=== PATIENT | male | born 1935 | race Caucasian/White ===

== ENCOUNTER 2016-09-18 19:26 | Emergency (ER) | payer MEDICARE, OTHER ==
[~2016-09-18] VITALS: Ht 177.8 cm; Wt 89.0 kg
[2016-09-18] MEDS ORDERED: REST0.05 OP (19:44)
[2016-09-18] MEDS ORDERED: NEXI40CA PO (19:44)
[2016-09-18] MEDS ORDERED: ASPI81TA85 PO (19:44)
[2016-09-18] MEDS ORDERED: MULT1TAB10 PO (19:44)
[2016-09-18] MEDS ORDERED: LOSA100T8 PO (19:44)
[2016-09-18] MEDS ORDERED: TERA10CA3 PO (19:44)
[2016-09-18] MEDS ORDERED: NS 500 ML IV ONE ×2 (20:00→20:45)
[2016-09-18] MEDS ORDERED: ASPIRIN 325 MG TAB PO ONE (20:00)
[2016-09-18] MEDS ORDERED: PANTOPRAZOLE 40MG TAB (PROTONIX) PO ONE (20:00)
[2016-09-18] MEDS ORDERED: METOCLOPRAMIDE INJ 10MG/2ML VIAL (J2765) IV ONE (20:00)
[2016-09-18 20:04] LABS: BASO % 0.3 % (0.0-1.0); EOS # 0.1 K/mm3 (0.0-0.50); EOS % 2.2 % (0.0-3.0); LARGE UNSTAINED CELL # 0.1 K/mm3 (0.0-0.4); LARGE UNSTAINED CELL % 1.7 % (0.0-4.0); LYMPH # 1.7 K/mm3 (1.5-4.5); LYMPH % 29.5 % (24.0-44.0); MEAN CORPUSCULAR HEMOGLOBIN 29.7 pg (27.0-33.0); MEAN CORPUSCULAR HGB CONC 33.6 g/dl (32.0-36.5); MEAN CORPUSCULAR VOLUME 88.3 fl (80.0-96.0); MONO # 0.3 K/mm3 (0.0-0.8); MONO % 6.2 % (0.0-5.0); NEUTROPHILS # 3.3 K/mm3 (1.8-7.7); NEUTROPHILS % 60.1 % (36.0-66.0); PLATELET COUNT, AUTOMATED 141 k/mm3 (150-450); RED CELL DISTRIBUTION WIDTH 12.9 % (11.5-14.5); WHITE BLOOD COUNT 5.4 K/mm3 (4.0-10.0)
[2016-09-18 20:28] LABS: ALBUMIN 3.6 GM/DL (3.2-5.2); ALBUMIN/GLOBULIN RATIO 1.38 (1.00-1.93); ALKALINE PHOSPHATASE 80 U/L (45-117); ALT/SGPT 21 U/L (12-78); ANION GAP 10 MEQ/L (8-16); AST/SGOT 16 U/L (15-37); BILIRUBIN,DIRECT 0.2 MG/DL (0.0-0.2); BILIRUBIN,TOTAL 0.8 MG/DL (0.2-1.0); BLOOD UREA NITROGEN 29 MG/DL (7-18); CALCIUM LEVEL 8.4 MG/DL (8.8-10.2); CARBON DIOXIDE LEVEL 28 MEQ/L (21-32); CHLORIDE LEVEL 105 MEQ/L (98-107); CREATININE FOR GFR 1.18 MG/DL (0.70-1.30); GLOMERULAR FILTRATION RATE > 60.0 (>35); GLUCOSE, FASTING 113 MG/DL (83-110); POTASSIUM SERUM 3.5 MEQ/L (3.5-5.1); SODIUM LEVEL 143 MEQ/L (136-145); TOTAL PROTEIN 6.2 GM/DL (6.4-8.2)
--- NOTE | 2016-09-18 21:40 | ECGEPIP ---
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
[2016-09-19 02:42] VITALS: BP 149/62
[2016-09-19] MEDS ORDERED: NEXI40CA PO (02:45)
--- NOTE | 2016-09-19 08:47 | REP ---
Chest one-view HISTORY: Chest pain Comparison: 12/22/2014 The lungs are clear. The cardiac silhouette is enlarged. The pulmonary vasculature is normal in appearance. Impression: Cardiomegaly. Signed by Zain Braden MD 09/19/2016 08:39 A
--- NOTE | 2016-09-19 09:53 | ECGEPIP ---
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
== END 2016-09-19 03:01 | disposition home or self-care (01) ==
LOC: M ED 19:26
DX: K21.9 Gastro-esophageal reflux disease without esophagitis (principal); R07.89 Other chest pain; I10 Essential (primary) hypertension; E78.5 Hyperlipidemia, unspecified; Z87.891 Personal history of nicotine dependence; Z88.0 Allergy status to penicillin; Z79.82 Long term (current) use of aspirin; Z79.899 Other long term (current) drug therapy
CPT/HCPCS: 36415; 71010; 80048; 80076; 82550; 82553; 83690; 83880; 84443; 84484; 85025; 85379; 85610; 85730; 93005; 93041; 94760; 96361; 96374; 99285; J2765

== ENCOUNTER → 2019-07-05 | Outpatient (CLI) | payer MEDICARE, OTHER ==
[~2019-07-05] MED LIST: ASPI81TA85 PO; E-Z-GAS II EFFERVESCENT PACKET (SODIUM BICARB./CITRIC ACID/SIMETHICONE) As Ordered ONE; E-Z-HD 98% w/w 340GM SUSP BTL As Ordered ONE; E-Z-PAQUE 96% w/w SUSP 176GM BTL As Ordered ONE; LOSA100T8 PO; MULT1TAB10 PO; NEXI40CA PO; REST0.05 OP; TERA10CA3 PO
--- NOTE | 2019-07-05 16:58 | REP ---
Esophagram The procedure was performed under the direct supervision of Dr. Simpson. The images were reviewed with Dr. Simpson. A single view PA chest x-ray is submitted as a advance scout film. The superior mediastinal structures are midline. The heart size is within normal limits. The lungs are clear. Liquid barium and gas producing granules were given in the erect position as well as liquid barium in the prone oblique positions in order to perform a double contrast esophagram examination. The oral and pharyngeal stages of deglutition are unremarkable. Esophageal transport is prompt and efficient and there is no esophagitis, stricture or mucosal ring. There is a sliding type hiatal hernia. Gastroesophageal reflux is not demonstrated on this examination. Impression: There is a sliding type hiatal hernia. Otherwise, unremarkable double contrast esophagram examination. 0.6 minutes of fluoro time was utilized for this procedure. Electronically Signed by HERIBERTO Siegel 07/05/2019 04:32 P Electronically Signed by Jluis Simpson MD 07/05/2019 04:49 P
== END ==
LOC: M RAD 08:46
PROVIDERS: ATTEND Otolaryngology
DX: K21.9 Gastro-esophageal reflux disease without esophagitis (principal)

== ENCOUNTER 2020-04-02 11:07 | Emergency (ER) | payer MEDICARE, OTHER ==
[~2020-04-02] VITALS: Ht 170.2 cm; Wt 81.8 kg
[~2020-04-02 11:07] MED LIST changes: -ASPI81TA85 PO; +ASPI81TA86 PO; -E-Z-GAS II EFFERVESCENT PACKET (SODIUM BICARB./CITRIC ACID/SIMETHICONE) As Ordered ONE; -E-Z-HD 98% w/w 340GM SUSP BTL As Ordered ONE; -E-Z-PAQUE 96% w/w SUSP 176GM BTL As Ordered ONE
--- OUTSIDE RECORDS SUMMARY | 2020-04-02 11:15 | CCD | Continuity of Care Document ---
Author Author Claude MONAE M.D. Organization Unknown Address [address] [address] Phone [phone] Care Team Providers Care Differential Specialist Name Role Phone Donovan Young MD AUTM Unavailable Problems Active Problems Provider Date Hyperlipidemia Ryan Monae M.D. Onset: 3 Benign essential hypertension Ryan Monae M.D. Onset: 01/12/2013 Gastroesophageal reflux disease Ryan Monae M.D. Onse t: 01/12/2013 Essential hypertension Ryan Monae M.D. Onset: 2014 Left atrial enlargement Ryan Monae M.D. Onset: 12/13 Social History Type Date Description Comments Sex Unknown Tobacco Use Start: Unknown Patient has never smoked Allergies, Adverse Reactions, Alerts Active Allergies Reaction Severity Comments Date Penicillin swelling 01/12/2013 Medications Active Medications SIG Qnty Indications Ordering Provide r Date Esomeprazole Magnesium 40mg Capsul es DR take one capsule by mouth twice a day maximum daily dose = 2 capsules 180caps K21.9 Ryan Monae M.D. 04/26/2019 Prevnar 13 Suspension as directed 1dose Ryan Monae M.D. 12/07/2018 Losartan Potassium 100mg Tablets Take One Tablet By Mouth Every Day 90tabs Ryan Monae M.D . 02/04/2018 Hydrochlorothiazide 25mg Tablets Take One Tablet By Mouth Every Day 90tabs Ryan Monae M.D . 02/04/2018 Terazosin HCL 5mg Capsules Take One Capsule By Mouth AT Bedtime 90caps Ryan Monae M .D. 07/04/2016 Aspirin Ec 81mg Tablets DR 1 by mouth every day Unknown Restasis 0.05% Emulsion instill 1 drop in each eye twice daily 1units Unknown [place] 0.025% Solution daily as directed Unknown Loratadine 10mg Tablets 1 by mouth every day OTC Unknown Carbidopa-Levodopa 25-100mg Tablet s 1/2 by mouth three times a day increasing by 1/2 tablet weekly till taking 5 times qd Donovan Young MD Immunizations CPT Code Status Date Vaccine Lot # 95087 Given 10/31/2019 Influenza Virus Vaccine, Quadrivalent, Slit Virus, Im Use 3Y & Up [id number] 76193 Given 12/07/2018 Influenza Virus Vaccine, Quadrivalent, Slit Virus, Im Use 3Y & Up [id number] 33271 Given 11/25/2017 Influenza Virus Vaccine, Quadrivalent, Slit Virus, Im Use 3Y & Up [id number] 70614 Given 12/11/2016 Influenza Virus Vaccine, Quadrivalent, Slit Virus, Im Use 3Y & Up [id number] 14493 Given 12/20/2015 Influenza Virus Vaccine, Quadrivalent, Slit Virus, Im Use 3Y & Up [id number] 92823 Given 12/20/2014 Influenza Vaccin e (Fluzone) 3Yrs Of Age Or Older Medicare Plans [id number] 10288 Given 01/23/2014 Influenza Vaccin e (Fluzone) 3Yrs Of Age Or Older Medicare Plans [id number] Vital Signs Date Vital Result Comment 01/24/2020 10:37am BP Systolic 136 mmHg BP Diastolic 80 mmHg Body Temperature 98.4 F Heart Rate 86 /min Respiratory Rate 12 /min Height 67 inches 5'7" Weight 183.00 lb [place] Body Weight 148 lb BMI (Body Mass Index) 28.7 kg/m2 O2 % BldC Oximetry 98 % 01/06/2020 11:37am BP Systolic 140 mmHg BP Diastolic 74 mmHg Body Temperature 97.9 F Heart Rate 82 /min Respiratory Rate 16 /min Height 67 inches 5'7" Weight 181.00 lb [place] Body Weight 148 lb BMI (Body Mass Index) 28.3 kg/m2 O2 % BldC Oximetry 98 % Results Test Acquired Date Facility Test Result H/L Range Note Laboratory test finding 01/27/2020 [facility] Occult Blood NEG Neg CBC 01/24/2020 [facility] WBC 3.5 10E3/uL Low 4.1 - 10.9 1 RBC 3.78 10E6/uL Low 4.20 - 6.30 HGB 10.8 g/dL Low 12.0 - 18.0 HCT 33.5 % Low 37.0 - 51.0 MCV 88.6 fL 80.0 - 97.0 MCH 28.6 pg 26.0 - 32.0 MCHC 32.2 g/dL 31.0 - 36.0 PLT 139 10E3/uL Low 140 - 440 RDW-CV 12.9 % 11.5 - 14.5 Lym% 23.9 % 10.0 - 58.5 Neut% 68.5 % 37.0 - 92.0 MXD% 7.6 % 0.1 - 24.0 Lym# 0.8 10E3/uL 0.6 - 4.1 Neut# 2.4 % 2.0 - 7.8 MXD# 0.3 10E3/uL 0.0 - 1.8 MPV 10.3 fL 9.0 - 13.0 Iron And Tibc 01/24/2020 [facility] [place] Iron Bind.Cap.(Tibc) 262 g/dL 250-450 Uibc 187 g/dL 111-343 Iron 75 g/dL 38-169 Iron Saturation 29 % 15-55 CMP 01/18/2020 [facility] Glu 101 mg/dL 70 - 110 2 BUN 22 mg/dL 8 - 23 Creat 1.0 mg/dL 0.7 - 1.2 BUN/Creatinine Ratio 22.1 CALC Na 136 mmol/L 136 - 145 K 4.1 mmol/L 3.5 - 5.1 CL 102.8 mmol/L 98.0 - 107.0 Co2 24.4 mmol/L 22.0 - 29.0 CA 8.7 mg/dL 8.6 - 10.2 TP 5.7 g/dL Low 6.6 - 8.7 Alb 4.0 g/dL 3.5 - 5.2 A/G Ratio 2.3 CALC Globulin 1.7 CALC Alp 71.9 U/L 40 - 129 Alt (SGPT) 14 U/L 0 - 41 Ast (Sgot) 24 U/L 0 - 40 Tbili 0.94 mg/dL 0.0 - 1.2 Osmolality-Calculated 276.2 CALC Anion Gap 13 mmol/L eGFR 79 # Calc 3 eGFR Non-Afr. Pakistani 68 # Calc 4 Lipid Panel 01/18/2020 [facility] Chol 117 mg/dL 0 - 200 Trig 52 mg/dL 35 - 200 HDL 53 mg/dL 35 - 55 LDL_C 54 Calc Low 75 - 129 Cho/HDL Ratio 2.2 CALC CBC 01/18/2020 [facility] WBC 4.7 10E3/uL 4.1 - 10.9 RBC 3.69 10E6/uL Low 4.20 - 6.30 HGB 10.8 g/dL Low 12.0 - 18.0 HCT 33.0 % Low 37.0 - 51.0 MCV 89.4 fL 80.0 - 97.0 MCH 29.3 pg 26.0 - 32.0 MCHC 32.7 g/dL 31.0 - 36.0 PLT 135 10E3/uL Low 140 - 440 RDW-CV 12.9 % 11.5 - 14.5 Lym% 25.6 % 10.0 - 58.5 Neut% 66.1 % 37.0 - 92.0 MXD% 8.3 % 0.1 - 24.0 Lym# 1.2 10E3/uL 0.6 - 4.1 Neut# 3.1 % 2.0 - 7.8 MXD# 0.4 10E3/uL 0.0 - 1.8 MPV 10.8 fL 9.0 - 13.0 1 NORMAL RANGES Age WBC RBC HGB HCT MCV PLT Adult M 4.1-10.9 4.20-6.30 12.0-18.0 37.0-51.0 80-97 140-440 Adult F 4.1-10.9 4.04-5.48 12.0-18.0 37.0-51.0 0 -1 Yr 5.0-20.0 3.9-5.9 15-18 MV: 44 MV: 91 MV: 277 2-9 Yr. 6.0-17.0 3.8-5.4 11-13 MV: 37 MV: 78 MV: 300 10 Yrs. 5.0-13.0 3.8-5.4 12-15 MV: 39 MV: 80 MV: 250 NOTE: * FOR ADULT BLACK MALES AND FEMALES, NORMAL WBC IS 2.9-7.7 K/ML * FOR ADULT BLACK MALES AND FEMALES, NORMAL RBC,HGB, AND HCT IS 5% LESS SOURCE FOR DATA: [employer] 1800 OPERATION MANUAL( AUTOMATED BLOOD COUNTS AND DIFF.) APPENDIX B-3 2 NORMAL RANGES Age WBC RBC HGB HCT MCV PLT Adult M 4.1-10.9 4.20-6.30 12.0-18.0 37.0-51.0 440 Adult F 4.1-10.9 4.04-5.48 12.0-18.0 37.0-51.0 0 -1 Yr 5.0-20.0 3.9-5.9 15-18 MV: 44 MV: 91 MV: 277 2-9 Yr. 6.0-17.0 3.8-5.4 11-13 MV: 37 MV: 78 MV: 300 10 Yrs. 5.0-13.0 3.8-5.4 12-15 MV: 39 MV: 80 MV: 250 NOTE: * FOR ADULT BLACK MALES AND FEMALES, NORMAL WBC IS 2.9-7.7 K/ML * FOR ADULT BLACK MALES AND FEMALES, NORMAL RBC,HGB, AND HCT IS 5% LESS SOURCE FOR DATA: [employer] 1800 OPERATION MANUAL( AUTOMATED BLOOD COUNTS AND DIFF.) APPENDIX B-3 CHRONIC KIDNEY DISEASE STAGING PER NKF: MALE GFR INTERPRETATION: 20-49 YRS: >60 mL/min Normal 50-59 YRS: >56 mL/min Normal 60-69 YRS: >49 mL/min Normal 70-79 YRS: >42 mL/min Normal 80 and above >35 mL/min Normal FEMALE GRF INTERPRETATION: 20-39 YRS: >60 mL/min Normal 40-49 YRS: >58 mL/min Normal 50-59 YRS: >51 mL/min Normal 60-69 YRS: >45 mL/min Normal 70-79 YRS: >39 mL/min Normal 80 and above >32 mL/min NormalCLASSIFICATION CHOLESTEROL FOR ADULTS CHILDREN/ADOLESCENTS* DESIRABLE: <200 MG/DL <170 MG/DL BORDER-LINE HIGH RISK: 200-239 MG/DL 170-199 MG/DL HIGH RISK: >240 MG/DL >200 MG/DL CLASS. FOR PRIMARY LDL CHOL PREVENTION: LDL CHOL-CHILD/ADOLESCENTS* DESIRABLE: <130 MG/DL <110 MG/DL BORDERLINE-HIGH RISK: 130-159 MG/DL 110-129 MG/DL HIGH RISK: >160 MG/DL >130 MG/DL *CHILDREN AND ADOLESCENTS REPRESENTS INDIVIDUALA AGED 2-19 YEARS EXCLUSIVE. 3 CKD-EPI 4 CKD-EPI Procedures Description No Information Available Medical Devices Description No Information Available Encounters Type Date Location Provider Dx Diagnosis Office Visit 01/24/2020 10:20a [facility] Ryan Monae M. D. R25.1 Tremor, unspecified I10 Essential (primary) hyperten collin K21.9 Gastro-esophageal reflux dis ease without esophagitis D64.9 Anemia, unspecified Office Visit 01/06/2020 11:30a [facility] Helen Romo PA G25.0 Essential tremor Office Visit 10/31/2019 2:30p [facility] Ryan Monae M. D. G25.0 Essential tremor Z23 Encounter for immunization Assessments Date Code Description Provider 01/27/2020 D64.9 Anemia, unspecified Talha Monae M.D. 01/24/2020 R25.1 Tremor, unspecified Talha Monae M.D. 01/24/2020 I10 Essential (primary) hypertension Ryan Monae M.D. 01/24/2020 K21.9 Gastro-esophageal reflux disease without esophagitis Ryan Monae M.D. 01/24/2020 D64.9 Anemia, unspecified Talha Monae M.D. 01/18/2020 E78.5 [facility], [facility] 01/06/2020 G25.0 Essential tremor Sa karina Romo PA 10/31/2019 G25.0 Essential tremor Ryan Monae M.D. 10/31/2019 Z23 Encounter for immunization Ryan Hardy M.D. Plan of Treatment Future Appointment(s):* 07/18/2020 8:45 am - Laboratory [facility] Schedule at [facility] * 07/25/2020 11:00 am - Ryan Monae M.D. at [facility] Functional Status Description No Information Available Mental Status Description No Information Available Referrals Refer to Dr Reason for Referral Status Appt Date Vielka Zimmer tremor- eval and rx Sent 11/14/2019 [facility] [address] [id number] [phone]
--- OUTSIDE RECORDS SUMMARY | 2020-04-02 11:15 | CCD | Continuity of Care Document ---
Author Author Roddy/Claude GALLOWAY Organization Unknown Address [address] [place] [id number] Phone [phone] Care Team Providers Care Barrel Rifler Hook Name Role Phone Ryan Monae M.D. AUTM [phone] Problems Active Problems Provider Date Tremor Donovan Young M.D. Onset: 11/14/2019 Left atrial enlargement Onset: 9 Essential hypertension Onset: 01/31/2015 Hyperlipidemia Onset: 01/12/2013 Benign essential hypertension Onset: Gastroesophageal reflux disease Onset: 03/14/2012 Social History Type Date Description Comments Sex Unknown Tobacco Use Start: Unknown End: Unknown Patient is a former smoker Allergies, Adverse Reactions, Alerts Active Allergies Reaction Severity Comments Date Penicillin V 11/14/2019 Vitamin D 11/14/2019 Medications Active Medications SIG Qnty Indications Ordering Provide r Date Carbidopa-Levodopa 25-100mg Tablet s Take 1 tab by mouth tid. Introduce 1/2 tab every 7 days gradually raising the dose over the next couple weeks. 5 hours apart. 90tabs Donovan cordon M.D. 01/11/2020 Diazepam 5mg Tablets take 1 tab 30-60 minutes prior to mri. [facility] [id number] 1tabs Donovan vela M.D. 11/18/2019 Esomeprazole Magnesium 40mg Capsul es DR take one capsule by mouth twice a day maximum daily dose = 2 capsules 180caps K21.9 Ryan Monae M.D. 04/26/2019 Prevnar 13 Suspension as directed 1units Ryan Monae M.D. 12/07/2018 Losartan Potassium 100mg Tablets Take One Tablet By Mouth Every Day 90tabs Ryan Monae M.D. 02/04/2018 Hydrochlorothiazide 25mg Tablets Take One Tablet By Mouth Every Day 90taRyan Camacho M.D. 02/04/2018 Terazosin HCL 5mg Capsules Take One Capsule By Mouth AT Bedtime 90caps Ryan Monae M.D . 07/04/2016 Aspirin Adult Low Dose 81mg Tablet s DR 1 by mouth every day 90taedwige Young M.D. 000 Aspirin Ec 81mg Tablets DR 1 by mouth every day Unknown Restasis 0.05% Emulsion instill 1 drop in each eye twice daily 1units Unknown Claritin 10mg Tablets 1 by mouth every day Unknown [place] 0.025% Solution daily as directed Unknown Immunizations Description No Information Available Vital Signs Date Vital Result Comment 11/14/2019 9:53am Respiratory Rate 12 /min Height 70 inches 5'10" Weight 183.00 lb BMI (Body Mass Index) 26.3 kg/m2 [place] Body Weight 166 lb 10/31/2019 3:38pm BP Systolic 138 mmHg BP Diastolic 74 mmHg Heart Rate 74 /min Body Temperature 99.1 F Respiratory Rate 14 /min Height 67 inches Weight 183.00 lb BMI (Body Mass Index) 28.7 kg/m2 O2 % BldC Oximetry 97 % Results Description No Information Available Procedures Date Code Description Status 01/25/2020 05709 Sympathetic Skin Responses Compl eted 01/25/2020 18460 Sympathetic Skin Responses Compl eted 01/25/2020 62989 Test Autonomic Nervous System, C ardiovagal Innervation Completed 01/25/2020 22456 Test Autonomic Nervous System, C ardiovagal Innervation Completed 12/26/2019 00266 EEG Recording Awake & Asleep Com pleted 12/26/2019 06596 EEG Recording Awake & Asleep Com pleted 11/22/2019 02023 MRI Brain W/O Contrast Completed 11/22/2019 07222 MRI Brain W/O Contrast Completed Medical Devices Description No Information Available Encounters Type Date Location Provider Dx Diagnosis Office Visit 11/14/2019 9:30a Main office - [place] Donovan vela M.D. R25.1 Tremor, unspecified R25.8 Other abnormal involuntary m ovements Assessments Date Code Description Provider 01/25/2020 G20 Parkinson's disease Donovan vela M.D. 01/25/2020 G20 Parkinson's disease Ans/VS 12/26/2019 R41.82 Altered mental status, unspecifi ed Tasha Juanpablo Cheung 12/26/2019 R41.82 Altered mental status, unspecifi ed EEG 11/22/2019 I63.9 Cerebral infarction, unspecified Sheba Skye, M.DAlfonzo 11/22/2019 I63.9 Cerebral infarction, unspecified MRI 11/22/2019 R25.8 Other abnormal involuntary movem ents Sheba Cheung M.D. 11/22/2019 R25.8 Other abnormal involuntary movem ents MRI 11/22/2019 R25.1 Tremor, unspecified Sheba Cheung M.D. 11/22/2019 R25.1 Tremor, unspecified MRI 11/14/2019 R25.1 Tremor, unspecified Donovan vela M.D. 11/14/2019 R25.8 Other abnormal involuntary movem ents Donovan Young M.D. Plan of Treatment Future Appointment(s):* 02/23/2020 2:00 pm - Donovan Young M.D. at Main office - [place] Functional Status Description No Information Available Mental Status Description No Information Available Referrals Description No Information Available
--- OUTSIDE RECORDS SUMMARY | 2020-04-02 11:15 | CCD | Continuity of Care Document ---
Author Author Claude MONAE M.D. Organization Unknown Address [address] [address] Phone [phone] Care Team Providers Care Livestock Nutritionist Name Role Phone Donovan Young MD AUTM Unavailable Problems Active Problems Provider Date Hyperlipidemia Ryan Monae M.D. Onset: 3 Benign essential hypertension Ryan Monae M.D. Onset: 01/12/2013 Gastroesophageal reflux disease Ryan Monae M.D. Onse t: 01/12/2013 Essential hypertension Rayn Monae M.D. Onset: 2014 Left atrial enlargement [...] CPT Code Status Date Vaccine Lot # [id number] Given 10/31/2019 Influenza Virus Vaccine, Quadrivalent, Slit Virus, Im Use 3Y & Up [id number] 11422 Given 12/07/2018 Influenza Virus Vaccine, Quadrivalent, Slit Virus, Im Use 3Y & Up [id number] 25777 Given 11/25/2017 Influenza Virus Vaccine, Quadrivalent, Slit Virus, Im Use 3Y & Up [id number] 95251 Given 12/11/2016 Influenza Virus Vaccine, Quadrivalent, Slit Virus, Im Use 3Y & Up [id number] 28300 Given 12/20/2015 Influenza Virus Vaccine, Quadrivalent, Slit Virus, Im Use 3Y & Up [id number] 05013 Given 12/20/2014 Influenza Vaccin e (Fluzone) 3Yrs Of Age Or Older Medicare Plans [id number] 98031 Given 01/23/2014 Influenza Vaccin e (Fluzone) 3Yrs Of Age Or Older Medicare Plans [id number] Vital Signs Date Vital Result Comment 01/24/2020 10:37am BP Systolic 136 mmHg BP Diastolic 80 mmHg Body Temperature 98.4 F Heart Rate 86 /min Respiratory Rate 12 /min Height 67 inches 5'7" Weight 183.00 lb [place] Body Weight 148 lb BMI (Body Mass Index) 28.7 kg/m2 O2 % BldC Oximetry 98 % 01/06/2020 11:37am BP Systolic 140 mmHg BP Diastolic 74 mmHg Body Temperature 97.9 F Heart Rate 82 /min Respiratory Rate 16 /min Height 67 inches 5'7" Weight 181.00 lb [place] Body Weight 148 lb BMI (Body Mass Index) 28.3 kg/m2 O2 % BldC Oximetry 98 % Results Test Acquired Date Facility Test Result H/L Range Note CBC 01/24/2020 [facility] WBC 3.5 10E3/uL Low [...] eGFR 79 # Calc 3 eGFR Non-Afr. [place] 68 # Calc 4 Lipid Panel 01/18/2020 [...] 140-440 Adult F 4.1-10.9 4.04-5.48 12.0-18.0 37.0-51.0 140-440 0 -1 Yr 5.0-20.0 3.9-5.9 15-18 MV: [...] HCT IS 5% LESS SOURCE FOR DATA: [employer] 1800 OPERATION MANUAL( AUTOMATED BLOOD COUNTS AND DIFF.) APPENDIX B-3 2 NORMAL RANGES Age WBC RBC HGB HCT MCV PLT Adult M 4.1-10.9 4.20-6.30 12.0-18.0 37.0-51.0 140-440 Adult F 4.1-10.9 4.04-5.48 12.0-18.0 37.0-51.0 140-440 0 -1 Yr 5.0-20.0 3.9-5.9 15-18 MV: [...] HCT IS 5% LESS SOURCE FOR DATA: [employer] 1800 OPERATION MANUAL( AUTOMATED BLOOD COUNTS AND [...] Provider Dx Diagnosis Office Visit 01/24/2020 10:20a [place] [facility] Ryan Monae M. D. R25.1 Tremor, unspecified I10 Essential (primary) hyperten collin K21.9 Gastro-esophageal reflux dis ease without esophagitis D64.9 Anemia, unspecified Office Visit 01/06/2020 11:30a [place] [facility] Helen Romo PA G25.0 Essential tremor Office Visit 10/31/2019 2:30p [place] [facility] Ryan Monae M. D. G25.0 Essential tremor Z23 Encounter for immunization Assessments Date Code Description Provider 01/24/2020 R25.1 Tremor, unspecified Talha Monae M.D. 01/24/2020 I10 Essential (primary) hypertension Ryan Monae M.D. 01/24/2020 K21.9 Gastro-esophageal reflux disease without esophagitis Ryan Monae M.D. 01/24/2020 D64.9 Anemia, unspecified Talha Monae M.D. 01/18/2020 E78.5 [facility]lipidemia, [facility] 01/06/2020 G25.0 Essential tremor Sa karina Romo PA 10/31/2019 G25.0 Essential tremor Ryan Monae M.D. 10/31/2019 Z23 Encounter for immunization Ryan Hardy M.D. Plan of Treatment Future Appointment(s):* 07/18/2020 8:45 am - Laboratory [place] Schedule at [facility] * 07/25/2020 11:00 am - Ryan Monae M.D. at [facility] Functional Status Description No Information Available Mental Status Description No Information Available Referrals Refer to Dr Reason for Referral Status Appt Date Vielka Zimmer tremor- eval and rx Sent 11/14/2019 [facility] [address] [address] [phone]
--- OUTSIDE RECORDS SUMMARY | 2020-04-02 11:15 | CCD | Continuity of Care Document ---
Author Author Claude MONET M.D. Organization Unknown Address [address] [place] [address] Phone [phone] Care Team Providers Care [place] Name Role Phone Ryan Monae M.D. AUTM [phone] Problems Active Problems Provider Date Tremor Donovan Monet M.D. Onset: 11/14/2019 Left atrial enlargement Onset: [...] 1 tab 30-60 minutes prior to mri. [employer] [id number] 1tabs Donovan vela M.D. 11/18/2019 Esomeprazole Magnesium [...] Every Day 90tabs Ryan Monae M.D. 02/04/2018 Terazosin HCL 5mg Capsules Take One Capsule By Mouth AT Bedtime 90caps Ryan Monae M.D . 07/04/2016 Aspirin Adult Low Dose 81mg Tablet s DR 1 by mouth every day 90tabs Donovan Monet M.D. 000 Aspirin Ec 81mg Tablets DR 1 by mouth every day Unknown Restasis 0.05% Emulsion instill 1 drop in each eye twice daily 1units Unknown Claritin 10mg Tablets 1 by mouth every day Unknown [place] 0.025% Solution daily as directed Unknown Immunizations Description No Information Available Vital Signs Date Vital Result Comment 02/23/2020 2:37pm Respiratory Rate 12 /min Height 70 inches 5'10" Weight 183.00 lb BMI (Body Mass Index) 26.3 kg/m2 [place] Body Weight 166 lb 11/14/2019 9:53am Respiratory Rate 12 /min Height 70 inches 5'10" Weight 183.00 lb BMI (Body Mass Index) 26.3 kg/m2 [place] Body Weight 166 lb Results Description No Information Available Procedures Date Code Description Status 01/25/2020 72034 Sympathetic Skin Responses Compl eted 01/25/2020 93250 Sympathetic Skin Responses Compl eted 01/25/2020 96054 Test Autonomic Nervous System, C ardiovagal Innervation Completed 01/25/2020 93512 Test Autonomic Nervous System, C ardiovagal Innervation Completed 12/26/2019 70814 EEG Recording Awake & Asleep Com pleted 12/26/2019 10291 EEG Recording Awake & Asleep Com pleted 11/22/2019 82917 MRI Brain W/O Contrast Completed 11/22/2019 79094 MRI Brain W/O Contrast Completed Medical Devices Description No Information Available Encounters Type Date Location Provider Dx Diagnosis Office Visit 11/14/2019 9:30a Main office - [place] Donovan vela M.D. R25.1 Tremor, unspecified R25.8 Other abnormal involuntary m ovements Assessments Date Code Description Provider 01/25/2020 G20 Parkinson's disease Dnoovan vela M.D. 01/25/2020 G20 Parkinson's disease Ans/VS 12/26/2019 R41.82 Altered mental status, unspecifi ed Tasha Cheung M.D. 12/26/2019 R41.82 Altered mental status, unspecifi ed EEG 11/22/2019 I63.9 Cerebral infarction, unspecified Shebamarcin Cehung M.D. 11/22/2019 I63.9 Cerebral infarction, unspecified MRI 11/22/2019 R25.8 Other abnormal involuntary movem ents Sheba Cheung M.D. 11/22/2019 R25.8 Other abnormal involuntary movem ents MRI 11/22/2019 R25.1 Tremor, unspecified Sheba Cheung M.D. 11/22/2019 R25.1 Tremor, unspecified MRI 11/14/2019 R25.1 Tremor, unspecified Donovan vela M.D. 11/14/2019 R25.8 Other abnormal involuntary movem ents Donovan Monet M.D. Plan of Treatment No Information Available Functional Status Description No Information Available Mental Status Description No Information Available Referrals Description No Information Available
--- OUTSIDE RECORDS SUMMARY | 2020-04-02 11:15 | CCD | Continuity of Care Document ---
Author Author Claude MONET M.D. Organization Unknown Address [address] [place] [address] Phone [phone] Care Team Providers Care Greaser Operator Name Role Phone Ryan Monae M.D. AUTM [phone] Problems Active Problems Provider Date Tremor Donovan [...] 1 tab 30-60 minutes prior to mri. ENROLLMENT COUNSELOR [id number] 1tabs Donovan vela M.D. 11/18/2019 Esomeprazole Magnesium [...] lb BMI (Body Mass Index) 26.3 kg/m2 [place] Body Weight 166 lb 11/14/2019 9:53am Respiratory Rate 12 /min Height 70 inches 5'10" Weight 183.00 lb BMI (Body Mass Index) 26.3 kg/m2 [place] Body Weight 166 lb Results Description No Information Available Procedures Date Code Description Status 01/25/2020 95622 Sympathetic Skin Responses Compl eted 01/25/2020 58202 Sympathetic Skin Responses Compl eted 01/25/2020 63314 Test Autonomic Nervous System, C ardiovagal Innervation Completed 01/25/2020 71879 Test Autonomic Nervous System, C ardiovagal Innervation Completed 12/26/2019 10765 EEG Recording Awake & Asleep Com pleted 12/26/2019 86345 EEG Recording Awake & Asleep Com pleted 11/22/2019 51877 MRI Brain W/O Contrast Completed 11/22/2019 73066 MRI Brain W/O Contrast Completed Medical Devices Description No Information Available Encounters Type Date Location Provider Dx Diagnosis Office Visit 02/23/2020 2:00p Main office - Mike vela M.D. G20 Parkinson's disease Office Visit 11/14/2019 9:30a Main office - Mike vela M.D. R25.1 Tremor, unspecified R25.8 Other abnormal involuntary m ovements Assessments Date Code Description Provider 02/23/2020 G20 Parkinson's disease Donovan vela M.D. 01/25/2020 G20 Parkinson's disease Donovan vela M.D. 01/25/2020 G20 Parkinson's disease Ans/VS 12/26/2019 R41.82 Altered mental status, unspecifi ed Tasha Juanpablo Cheung 12/26/2019 R41.82 Altered mental status, unspecifi ed EEG 11/22/2019 I63.9 Cerebral infarction, unspecified Sheba Skye, AdrianaDAlfonzo 11/22/2019 I63.9 Cerebral infarction, unspecified MRI 11/22/2019 R25.8 Other abnormal involuntary movem ents Sheba Cheung M.D. 11/22/2019 R25.8 Other abnormal involuntary movem ents MRI 11/22/2019 R25.1 Tremor, unspecified Sheba Juanpablo Cheung 11/22/2019 R25.1 Tremor, unspecified MRI 11/14/2019 R25.1 Tremor, unspecified Donovan vela M.D. 11/14/2019 R25.8 Other abnormal involuntary movem ents Donovan Monet M.D. Plan of Treatment No Information Available Functional Status Description No Information Available Mental Status Description No Information Available Referrals Description No Information Available
--- OUTSIDE RECORDS SUMMARY | 2020-04-02 11:15 | CCD | Continuity of Care Document ---
Author Author Roddy/Claude GALLOWAY Organization Unknown Address [address] [place] [address] Phone [phone] Care Team Providers Care Skimmer Scoop Operator Name Role Phone Ryan Monae M.D. AUTM [phone] Problems Active Problems Provider Date Tremor Donovan [...] 1 tab 30-60 minutes prior to mri. [facility] [id number] 1tabs Donovan vela M.D. 11/18/2019 Esomeprazole Magnesium [...] Take One Capsule By Mouth AT Bedtime 90beckas Ryan Monae M.D . 07/04/2016 Aspirin Adult [...] lb BMI (Body Mass Index) 26.3 kg/m2 [place] Body Weight 166 lb 10/31/2019 3:38pm BP Systolic 138 mmHg BP Diastolic 74 mmHg Heart Rate 74 /min Body Temperature 99.1 F Respiratory Rate 14 /min Height 67 inches Weight 183.00 lb BMI (Body Mass Index) 28.7 kg/m2 O2 % BldC Oximetry 97 % Results Description No Information Available Procedures Date Code Description Status 12/26/2019 35912 EEG Recording Awake & Asleep Com pleted 12/26/2019 94345 EEG Recording Awake & Asleep Com pleted 11/22/2019 11264 MRI Brain W/O Contrast Completed 11/22/2019 16715 MRI Brain W/O Contrast Completed Medical Devices Description No Information Available Encounters Type Date Location Provider Dx Diagnosis Office Visit 11/14/2019 9:30a Main office - [place] Donovan vela M.D. R25.1 Tremor, unspecified R25.8 Other abnormal involuntary m ovements Assessments Date Code Description Provider 12/26/2019 R41.82 Altered mental status, unspecifi ed Tasha Cheung M.D. 12/26/2019 R41.82 Altered mental status, unspecifi ed EEG 11/22/2019 I63.9 Cerebral infarction, unspecified Sheba Cheung M.D. 11/22/2019 I63.9 Cerebral infarction, unspecified MRI [...] Donovan Young M.D. at Main office - [place] Functional Status Description No Information Available Mental Status Description No Information Available Referrals Description No Information Available
--- OUTSIDE RECORDS SUMMARY | 2020-04-02 11:15 | CCD | Continuity of Care Document ---
Author Author Claude MEDEL DPM Organization Unknown Address [address] [place] [address], [address] [place] [address] Phone [phone] Care Team Providers Care Telecommunications Support Name Role Phone O'iesha SILVANO, Martha GUZMANM [phone] Ryan Monae M.D. [phone] Problems Active Problems Provider Date Pain in limb Dimas Medel DPM Onset: 08/16/2019 Onychomycosis Dimas Medel DPM Onset: 08/16/2019 Ingrowing nail Dimas Medel DPM Onset: 08/16/2019 Social History Type Date Description Comments Sex Unknown ETOH Use Occasionally consumes alcohol Tobacco Use Start: Unknown Patient has never smoked Allergies, Adverse Reactions, Alerts Active Allergies Reaction Severity Comments Date Penicillins 08/15/2019 Medications Active Medications SIG Qnty Indications Ordering Provide r Date Aspirin Unknown Nexium Unknown Restasis Unknown Losartan Potassium Unknown Immunizations Description No Information Available Vital Signs Date Vital Result Comment 08/15/2019 1:25pm Height 68 inches 5'8" Weight 190.00 lb BP Systolic 120 mmHg BP Diastolic 68 mmHg Heart Rate 108 /min BMI (Body Mass Index) 28.9 kg/m2 Results Description No Information Available Procedures Date Code Description Status 03/05/2020 66011 Debridement 6-10 Nails Electric Completed 01/02/2020 22890 Debridement 6-10 Nails Electric Completed 10/25/2019 89212 Debridement 6-10 Nails Electric Completed Medical Devices Description No Information Available Encounters Description No Information Available Assessments Date Code Description Provider 03/05/2020 B35.1 Tinea unguium Dimas Medel DPM 03/05/2020 L60.0 Ingrowing nail Dimas Medel, DPM 03/05/2020 M79.676 Pain in unspecified toe(s) Rivera Medel, DPM 01/02/2020 B35.1 Tinea unguium Dimas Medel, DPM 01/02/2020 L60.0 Ingrowing nail Dmias Medel, DPM 01/02/2020 M79.676 Pain in unspecified toe(s) Rivera Medel, DPM 10/25/2019 B35.1 Tinea unguium Dimas Medel, DPM 10/25/2019 L60.0 Ingrowing nail Dimas Medel, DPM 10/25/2019 M79.676 Pain in unspecified toe(s) Rivera Medel DPM Plan of Treatment Future Appointment(s):* 05/14/2020 1:30 pm - Dimas Medel DPM at [facility] Functional Status Description No Information Available Mental Status Description No Information Available Referrals Description No Information Available
--- OUTSIDE RECORDS SUMMARY | 2020-04-02 11:15 | CCD | Continuity of Care Document ---
Author Author Claude MONAE M.D. Organization Unknown Address [address] [address] Phone [phone] Care Team Providers Care Devops Solutions Architect Name Role Phone Donovan Young MD AUTM [...] CPT Code Status Date Vaccine Lot # [id number] Given 10/31/2019 Influenza Virus Vaccine, Quadrivalent, Slit Virus, Im Use 3Y & Up [id number] 42512 Given 12/07/2018 Influenza Virus Vaccine, Quadrivalent, Slit Virus, Im Use 3Y & Up [id number] 22038 Given 11/25/2017 Influenza Virus Vaccine, Quadrivalent, Slit Virus, Im Use 3Y & Up [id number] 26766 Given 12/11/2016 Influenza Virus Vaccine, Quadrivalent, Slit Virus, Im Use 3Y & Up [id number] 08536 Given 12/20/2015 Influenza Virus Vaccine, Quadrivalent, Slit Virus, Im Use 3Y & Up [id number] 29137 Given 12/20/2014 Influenza Vaccin e (Fluzone) 3Yrs Of Age Or Older Medicare Plans [id number] 32197 Given 01/23/2014 Influenza Vaccin e (Fluzone) 3Yrs Of Age Or Older Medicare Plans [id number] Vital Signs Date Vital Result Comment 01/24/2020 10:37am BP Systolic 136 mmHg BP Diastolic 80 mmHg Body Temperature 98.4 F Heart Rate 86 /min Respiratory Rate 12 /min Height 67 inches 5'7" Weight 183.00 lb [place] Body Weight 148 lb BMI (Body Mass Index) 28.7 kg/m2 O2 % BldC Oximetry 98 % 01/06/2020 11:37am BP Systolic 140 mmHg BP Diastolic 74 mmHg Body Temperature 97.9 F Heart Rate 82 /min Respiratory Rate 16 /min Height 67 inches 5'7" Weight 181.00 lb [place] Body Weight 148 lb BMI (Body Mass [...] 1.8 MPV 10.3 fL 9.0 - 13.0 CMP 01/18/2020 [facility]Inhouse Glu 101 mg/dL 70 [...] eGFR 79 # Calc 3 eGFR Non-Afr. [place]ese 68 # Calc 4 Lipid Panel 01/18/2020 [...] 140-440 Adult F 4.1-10.9 4.04-5.48 12.0-18.0 37.0-51.0 80-97 140-440 0 -1 Yr 5.0-20.0 3.9-5.9 15-18 [...] HCT IS 5% LESS SOURCE FOR DATA: [employer] 1800 OPERATION MANUAL( AUTOMATED BLOOD COUNTS AND DIFF.) APPENDIX B-3 2 NORMAL RANGES Age WBC RBC HGB HCT MCV PLT Adult M 4.1-10.9 4.20-6.30 12.0-18.0 37.0-51.0 80-97 140-440 Adult F 4.1-10.9 4.04-5.48 12.0-18.0 37.0-51.0 80-97 140-440 0 -1 Yr 5.0-20.0 3.9-5.9 15-18 [...] HCT IS 5% LESS SOURCE FOR DATA: [employer] 1800 OPERATION MANUAL( AUTOMATED BLOOD COUNTS AND [...] Provider Dx Diagnosis Office Visit 01/24/2020 10:20a [place] [facility] Ryan Monae M. D. R25.1 Tremor, unspecified I10 Essential (primary) hyperten collin K21.9 Gastro-esophageal reflux dis ease without esophagitis D64.9 Anemia, unspecified Office Visit 01/06/2020 11:30a [place] [facility] Helen Romo PA G25.0 Essential tremor Office Visit 10/31/2019 2:30p [place] [facility] Ryan Monae M. D. G25.0 Essential tremor Z23 Encounter for immunization Assessments Date Code Description Provider 01/24/2020 R25.1 Tremor, unspecified Talha Monae M.D. 01/24/2020 I10 Essential (primary) hypertension Ryan Monae M.D. 01/24/2020 K21.9 Gastro-esophageal reflux disease without esophagitis Ryan Monae M.D. 01/24/2020 D64.9 Anemia, unspecified Talha Monae M.D. 01/18/2020 E78.5 Hyperlipidemia, unspecified [facility] Ryan nolan M.D. 01/06/2020 G25.0 Essential tremor Sa karina Romo PA 10/31/2019 G25.0 Essential tremor Ryan Monae M.D. 10/31/2019 Z23 Encounter for immunization Ryan Hardy M.D. Plan of Treatment Future Appointment(s):* 07/18/2020 8:45 am - Laboratory [place] Schedule at [facility] * 07/25/2020 11:00 am - Ryan Monae M.D. at [facility] Functional Status Description No Information Available Mental Status Description No Information Available Referrals Refer to Dr Reason for Referral Status Appt Date Vielka Zimmer tremor- eval and rx Sent 11/14/2019 [facility] [address] [address] [phone]
--- OUTSIDE RECORDS SUMMARY | 2020-04-02 11:15 | CCD | Continuity of Care Document ---
Author Author Claude MONAE M.D. Organization Unknown Address [address] [address] Phone [phone] Care Team Providers Care Block Splitter Operator Name Role Phone Donovan Young MD AUTM [...] CPT Code Status Date Vaccine Lot # [id number] Given 10/31/2019 Influenza Virus Vaccine, Quadrivalent, Slit Virus, Im Use 3Y & Up [id number] 21070 Given 12/07/2018 Influenza Virus Vaccine, Quadrivalent, Slit Virus, Im Use 3Y & Up [id number] 82678 Given 11/25/2017 Influenza Virus Vaccine, Quadrivalent, Slit Virus, Im Use 3Y & Up [id number] 05565 Given 12/11/2016 Influenza Virus Vaccine, Quadrivalent, Slit Virus, Im Use 3Y & Up [id number] 87758 Given 12/20/2015 Influenza Virus Vaccine, Quadrivalent, Slit Virus, Im Use 3Y & Up [id number] 43005 Given 12/20/2014 Influenza Vaccin e (Fluzone) 3Yrs Of Age Or Older Medicare Plans [id number] 49320 Given 01/23/2014 Influenza Vaccin e (Fluzone) 3Yrs Of Age Or Older Medicare Plans [id number] Vital Signs Date Vital Result Comment 01/24/2020 10:37am BP Systolic 136 mmHg BP Diastolic 80 mmHg Body Temperature 98.4 F Heart Rate 86 /min Respiratory Rate 12 /min Height 67 inches 5'7" Weight 183.00 lb [place] Body Weight 148 lb BMI (Body Mass Index) 28.7 kg/m2 O2 % BldC Oximetry 98 % 01/06/2020 11:37am BP Systolic 140 mmHg BP Diastolic 74 mmHg Body Temperature 97.9 F Heart Rate 82 /min Respiratory Rate 16 /min Height 67 inches 5'7" Weight 181.00 lb [place] Body Weight 148 lb BMI (Body Mass [...] eGFR 79 # Calc 3 eGFR Non-Afr. Syrian 68 # Calc 4 Lipid Panel 01/18/2020 [...] HCT IS 5% LESS SOURCE FOR DATA: [employer] 1800 OPERATION MANUAL( AUTOMATED BLOOD COUNTS AND [...] HCT IS 5% LESS SOURCE FOR DATA: [employer] 1800 OPERATION MANUAL( AUTOMATED BLOOD COUNTS AND [...] Provider Dx Diagnosis Office Visit 01/24/2020 10:20a [place] [facility] Ryan Monae M. D. R25.1 Tremor, unspecified I10 Essential (primary) hyperten collin K21.9 Gastro-esophageal reflux dis ease without esophagitis D64.9 Anemia, unspecified Office Visit 01/06/2020 11:30a [place] [facility] Helen Romo PA G25.0 Essential tremor Office Visit 10/31/2019 2:30p [place] [facility] Ryan Monae M. D. G25.0 Essential tremor Z23 Encounter for immunization Assessments Date Code Description Provider 01/24/2020 R25.1 Tremor, unspecified Talha Monae M.D. 01/24/2020 I10 Essential (primary) hypertension Ryan oMnae M.D. 01/24/2020 K21.9 Gastro-esophageal reflux disease without esophagitis Ryan Monae M.D. 01/24/2020 D64.9 Anemia, unspecified Talha Monae M.D. 01/18/2020 E78.5 [facility], [facility] 01/06/2020 G25.0 Essential tremor Sa karina Romo PA 10/31/2019 G25.0 Essential tremor Ryan Monae M.D. 10/31/2019 Z23 Encounter for immunization Ryan Hardy M.D. Plan of Treatment Future Appointment(s):* 07/18/2020 8:45 am - Laboratory [place] Schedule at [facility] * 07/25/2020 11:00 am - Ryan Monae M.D. at [facility] Functional Status Description No Information Available Mental Status Description No Information Available Referrals Refer to Dr Reason for Referral Status Appt Date Vielka Zimmer tremor- eval and rx Sent 11/14/2019 [facility] [address] [address] [phone]
--- OUTSIDE RECORDS SUMMARY | 2020-04-02 11:16 | CCD | Continuity of Care Document ---
Author Author Claude MONAE M.D. Organization Unknown Address [address] [address] Phone [phone] Problems Active Problems Provider Date Hyperlipidemia Ryan [...] 0.025% Solution daily as directed Unknown Immunizations CPT Code Status Date Vaccine Lot # [id number] Given 10/31/2019 Influenza Virus Vaccine, Quadrivalent, Slit Virus, Im Use 3Y & Up [id number] 90426 Given 12/07/2018 Influenza Virus Vaccine, Quadrivalent, Slit Virus, Im Use 3Y & Up [id number] 14718 Given 11/25/2017 Influenza Virus Vaccine, Quadrivalent, Slit Virus, Im Use 3Y & Up [id number] 37052 Given 12/11/2016 Influenza Virus Vaccine, Quadrivalent, Slit Virus, Im Use 3Y & Up [id number] 40782 Given 12/20/2015 Influenza Virus Vaccine, Quadrivalent, Slit Virus, Im Use 3Y & Up [id number] 64514 Given 12/20/2014 Influenza Vaccin e (Fluzone) 3Yrs Of Age Or Older Medicare Plans [id number] 62759 Given 01/23/2014 Influenza Vaccin e (Fluzone) 3Yrs Of Age Or Older Medicare Plans [id number] Vital Signs Date Vital Result Comment 01/06/2020 11:37am BP Systolic 140 mmHg BP Diastolic 74 mmHg Body Temperature 97.9 F Heart Rate 82 /min Respiratory Rate 16 /min Height 67 inches 5'7" Weight 181.00 lb [place] Body Weight 148 lb BMI (Body Mass Index) 28.3 kg/m2 O2 % BldC Oximetry 98 % 10/31/2019 3:38pm BP Systolic 138 mmHg BP Diastolic 74 mmHg Body Temperature 99.1 F Heart Rate 74 /min Respiratory Rate 14 /min Height 67 inches 5'7" Weight 183.00 lb [place] Body Weight 148 lb BMI (Body Mass Index) 28.7 kg/m2 O2 % BldC Oximetry 97 % Results Test Acquired Date Facility Test Result H/L Range Note CMP 01/18/2020 [facility] Glu 101 mg/dL 70 - 110 1 BUN 22 mg/dL 8 - 23 Creat [...] Gap 13 mmol/L eGFR 79 # Calc 2 eGFR Non-Afr. [place]i 68 # Calc 3 Lipid Panel 01/18/2020 [facility]house Chol 117 mg/dL [...] HCT IS 5% LESS SOURCE FOR DATA: [employer] 1800 OPERATION MANUAL( AUTOMATED BLOOD COUNTS AND [...] ADOLESCENTS REPRESENTS INDIVIDUALA AGED 2-19 YEARS EXCLUSIVE. 2 CKD-EPI 3 CKD-EPI Procedures Description No Information Available Medical Devices Description No Information Available Encounters Type Date Location Provider Dx Diagnosis Office Visit 01/24/2020 10:20a [place] [facility] Ryan Monae M. D. R25.1 Tremor, unspecified I10 Essential (primary) hyperten collin K21.9 Gastro-esophageal reflux dis ease without esophagitis D64.9 Anemia, unspecified Office Visit 01/06/2020 11:30a [place] [facility] Helen Romo PA G25.0 Essential tremor Office Visit 10/31/2019 2:30p [place] [facility] Ryan Monae M. D. G25.0 Essential tremor Z23 Encounter for immunization Assessments Date Code Description Provider 01/24/2020 R25.1 Tremor, unspecified Tlaha Monae M.D. 01/24/2020 I10 Essential (primary) hypertension Ryan Monae M.D. 01/24/2020 K21.9 Gastro-esophageal reflux disease without esophagitis Ryan Monae M.D. 01/24/2020 D64.9 Anemia, unspecified Talha Monae M.D. 01/18/2020 E78.5 Hyperlipidemia, unspecified [facility] Ryan nolan M.D. 01/06/2020 G25.0 Essential tremor Sa karina Romo PA 10/31/2019 G25.0 Essential tremor Ryan Monae M.D. 10/31/2019 Z23 Encounter for immunization Ryan Hardy M.D. Plan of Treatment No Information Available Functional Status Description No Information Available Mental Status Description No Information Available Referrals Refer to Reason for Referral Status Appt Date Vielka Zimmer tremor- eval and rx Sent 11/14/2019 [facility] [address] [address] [phone]
--- OUTSIDE RECORDS SUMMARY | 2020-04-02 11:16 | CCD | Continuity of Care Document ---
Author Author Laboratory Claude Stallings Organization Unknown Address [address] [facility] [address] [place] [address] Phone [phone] Problems Active Problems Provider Date Hyperlipidemia Ryan [...] CPT Code Status Date Vaccine Lot # [id number] Given 10/31/2019 Influenza Virus Vaccine, Quadrivalent, Slit Virus, Im Use 3Y & Up [id number] 59876 Given 12/07/2018 Influenza Virus Vaccine, Quadrivalent, Slit Virus, Im Use 3Y & Up [id number] 29112 Given 11/25/2017 Influenza Virus Vaccine, Quadrivalent, Slit Virus, Im Use 3Y & Up [id number] 74868 Given 12/11/2016 Influenza Virus Vaccine, Quadrivalent, Slit Virus, Im Use 3Y & Up [id number] 78648 Given 12/20/2015 Influenza Virus Vaccine, Quadrivalent, Slit Virus, Im Use 3Y & Up [id number] 35414 Given 12/20/2014 Influenza Vaccin e (Fluzone) 3Yrs Of Age Or Older Medicare Plans [id number] 37655 Given 01/23/2014 Influenza Vaccin e (Fluzone) 3Yrs Of Age Or Older Medicare Plans [id number] Vital Signs Date Vital Result Comment 01/06/2020 11:37am BP Systolic 140 mmHg BP Diastolic 74 mmHg Body Temperature 97.9 F Heart Rate 82 /min Respiratory Rate 16 /min Height 67 inches 5'7" Weight 181.00 lb [place] Body Weight 148 lb BMI (Body Mass Index) 28.3 kg/m2 O2 % BldC Oximetry 98 % 10/31/2019 3:38pm BP Systolic 138 mmHg BP Diastolic 74 mmHg Body Temperature 99.1 F Heart Rate 74 /min Respiratory Rate 14 /min Height 67 inches 5'7" Weight 183.00 lb [place] Body Weight 148 lb BMI (Body Mass [...] eGFR 79 # Calc 2 eGFR Non-Afr. [place]isian 68 # Calc 3 Lipid Panel 01/18/2020 [...] HCT IS 5% LESS SOURCE FOR DATA: [employer] 1800 OPERATION MANUAL( AUTOMATED BLOOD COUNTS AND [...] Date Location Provider Dx Diagnosis Office Visit 01/06/2020 11:30a [place] [facility] Helen Romo PA G25.0 Essential tremor Office Visit 10/31/2019 2:30p [place] [facility] Ryan Monae M. D. G25.0 Essential tremor Z23 Encounter for immunization Assessments Date Code Description Provider 01/06/2020 G25.0 Essential tremor Sa karina Romo PA 10/31/2019 G25.0 Essential tremor Ryan Monae M.D. 10/31/2019 Z23 Encounter for immunization Joseph Ryan del real M.D. Plan of Treatment Future Appointment(s):* 01/24/2020 10:20 am - Ryan Monae M.D. at [facility] Functional Status Description No Information Available Mental Status Description No Information Available Referrals Refer to Dr Reason for Referral Status Appt Date Vielka Zimmer tremor- eval and rx Sent 11/14/2019 [facility] [address] [address] [phone]
--- OUTSIDE RECORDS SUMMARY | 2020-04-02 11:16 | CCD | Continuity of Care Document ---
Author Author Claude ROMO MT Organization Unknown Address 3 [facility] [address] [place] [address] Phone [phone] Problems Active Problems Provider Date Hyperlipidemia Ryan [...] CPT Code Status Date Vaccine Lot # [id number] Given 10/31/2019 Influenza Virus Vaccine, Quadrivalent, Slit Virus, Im Use 3Y & Up [id number] 93796 Given 12/07/2018 Influenza Virus Vaccine, Quadrivalent, Slit Virus, Im Use 3Y & Up [id number] 03007 Given 11/25/2017 Influenza Virus Vaccine, Quadrivalent, Slit Virus, Im Use 3Y & Up [id number] 44926 Given 12/11/2016 Influenza Virus Vaccine, Quadrivalent, Slit Virus, Im Use 3Y & Up [id number] 03954 Given 12/20/2015 Influenza Virus Vaccine, Quadrivalent, Slit Virus, Im Use 3Y & Up [id number] 93464 Given 12/20/2014 Influenza Vaccin e (Fluzone) 3Yrs Of Age Or Older Medicare Plans [id number] 30119 Given 01/23/2014 Influenza Vaccin e (Fluzone) 3Yrs Of Age Or Older Medicare Plans [id number] Vital Signs Date Vital Result Comment 01/06/2020 11:37am BP Systolic 140 mmHg BP Diastolic 74 mmHg Body Temperature 97.9 F Heart Rate 82 /min Respiratory Rate 16 /min Height 67 inches 5'7" Weight 181.00 lb [place] Body Weight 148 lb BMI (Body Mass Index) 28.3 kg/m2 O2 % BldC Oximetry 98 % 10/31/2019 3:38pm BP Systolic 138 mmHg BP Diastolic 74 mmHg Body Temperature 99.1 F Heart Rate 74 /min Respiratory Rate 14 /min Height 67 inches 5'7" Weight 183.00 lb [place] Body Weight 148 lb BMI (Body Mass Index) 28.7 kg/m2 O2 % BldC Oximetry 97 % Results Description No Information Available Procedures Description No Information Available Medical Devices Description No Information Available Encounters Type Date Location Provider Dx Diagnosis Office Visit 01/06/2020 11:30a [place] [facility] Helen Romo PA G25.0 Essential tremor Office Visit 10/31/2019 2:30p [place] [facility] Ryan Monae M. D. G25.0 Essential tremor Z23 Encounter for immunization Office Visit 07/20/2019 3:20p [place] [facility] Ryan Monae M. D. G25.0 Essential tremor Assessments Date Code Description Provider 01/06/2020 G25.0 Essential tremor Sa karina Romo PA 10/31/2019 G25.0 Essential tremor Ryan Monae M.D. 10/31/2019 Z23 Encounter for immunization Ryan Hardy M.D. 07/20/2019 G25.0 Essential tremor Ryan Monae M.D. Plan of Treatment Future Appointment(s):* 01/24/2020 10:20 am - Ryan Monae M.D. at [place] [facility] * 01/17/2020 9:15 am - Laboratory [place] Schedule at [facility] Functional Status Description No Information Available Mental Status Description No Information Available Referrals Refer to Dr Reason for Referral Status Appt Date Vielka Zimmer tremor- eval and rx Sent 11/14/2019 [facility] [address] [address] [phone]
--- OUTSIDE RECORDS SUMMARY | 2020-04-02 11:16 | CCD | Continuity of Care Document ---
Author Author Claude MAIER [place] Organization Unknown Address 3 [facility] [address] [place] [address] Phone [phone] Problems Active Problems Provider Date Hyperlipidemia Ryan [...] CPT Code Status Date Vaccine Lot # 27510 Given 10/31/2019 Influenza Virus Vaccine, Quadrivalent, Slit Virus, Im Use 3Y & Up [id number] 75371 Given 12/07/2018 Influenza Virus Vaccine, Quadrivalent, Slit Virus, Im Use 3Y & Up [id number] 56502 Given 11/25/2017 Influenza Virus Vaccine, Quadrivalent, Slit Virus, Im Use 3Y & Up [id number] 47018 Given 12/11/2016 Influenza Virus Vaccine, Quadrivalent, Slit Virus, Im Use 3Y & Up [id number] 62381 Given 12/20/2015 Influenza Virus Vaccine, Quadrivalent, Slit Virus, Im Use 3Y & Up [id number] 48012 Given 12/20/2014 Influenza Vaccin e (Fluzone) 3Yrs Of Age Or Older Medicare Plans [id number] 41611 Given 01/23/2014 Influenza Vaccin e (Fluzone) 3Yrs Of Age Or Older Medicare Plans [id number] Vital Signs Date Vital Result Comment 01/06/2020 11:37am BP Systolic 140 mmHg BP Diastolic 74 mmHg Body Temperature 97.9 F Heart Rate 82 /min Respiratory Rate 16 /min Height 67 inches 5'7" Weight 181.00 lb [place] Body Weight 148 lb BMI (Body Mass Index) 28.3 kg/m2 O2 % BldC Oximetry 98 % 10/31/2019 3:38pm BP Systolic 138 mmHg BP Diastolic 74 mmHg Body Temperature 99.1 F Heart Rate 74 /min Respiratory Rate 14 /min Height 67 inches 5'7" Weight 183.00 lb [place] Body Weight 148 lb BMI (Body Mass Index) 28.7 kg/m2 O2 % BldC Oximetry 97 % Results Description No Information Available Procedures Description No Information Available Medical Devices Description No Information Available Encounters Type Date Location Provider Dx Diagnosis Office Visit 10/31/2019 2:30p [place] [facility] Ryan Monae M. D. G25.0 Essential tremor Z23 Encounter for immunization Office Visit 07/20/2019 3:20p [place] [facility] Ryan Monae M. D. G25.0 Essential tremor Assessments Date Code Description Provider 10/31/2019 G25.0 Essential tremor Ryan Monae M.D. 10/31/2019 Z23 Encounter for immunization Joseph Ryan del real M.D. 07/20/2019 G25.0 Essential tremor Ryan Monae M.D. Plan of Treatment Future Appointment(s):* 01/24/2020 10:20 am - Ryan Monae M.D. at [place] [facility] * 01/17/2020 9:15 am - [facility] [place] Schedule at [facility] Functional Status Description No Information Available Mental Status Description No Information Available Referrals Refer to Dr Reason for Referral Status Appt Date Vielka Zimmer tremor- eval and rx Sent 11/14/2019 [facility] [address] [address] [phone]
--- OUTSIDE RECORDS SUMMARY | 2020-04-02 11:16 | CCD | Continuity of Care Document ---
Author Author Claude MEDEL DPRose Mary Organization Unknown Address [address] [place] [address], [address] [place] [address] Phone [phone] Care Team Providers Care Olericulture Professor Name Role Phone O'iesha SILVANO, Martha DUPONT [phone] Ryan Monae M.D. [phone] Problems Active Problems Provider Date Pain in [...] Information Available Procedures Date Code Description Status 01/02/2020 17355 Debridement 6-10 Nails Electric Completed 10/25/2019 73282 Debridement 6-10 Nails Electric Completed 08/15/2019 99122 Debridement 6-10 Nails Electric Completed Medical Devices Description No Information Available Encounters Type Date Location Provider Dx Diagnosis Office Visit 08/15/2019 1:00p [place] [facility] Dimas Medel DPM M79.676 Pain in unspecified toe(s) B35.1 Tinea unguium L60.0 Ingrowing nail Assessments Date Code Description Provider 01/02/2020 B35.1 Tinea unguium Dimas Medel, DPM 01/02/2020 L60.0 Ingrowing nail Dimas Medel, DPM 01/02/2020 M79.676 Pain in unspecified toe(s) Rivera Medel, DPM 10/25/2019 B35.1 Tinea unguium Dimas Medel, DPM 10/25/2019 L60.0 Ingrowing nail Dimas Medel, DPM 10/25/2019 M79.676 Pain in unspecified toe(s) Rivera Medel, DPM 08/15/2019 M79.676 Pain in unspecified toe(s) Rivera Medel, FREDDYM 08/15/2019 B35.1 Tinea unguium Dimas Medel, DPM 08/15/2019 L60.0 Ingrowing nail Dimas Medel DPM Plan of Treatment Future Appointment(s):* 03/05/2020 1:30 pm - Dimas Medel DPM at [facility] [place] Functional Status Description No Information Available Mental Status Description No Information Available Referrals Description No Information Available
--- OUTSIDE RECORDS SUMMARY | 2020-04-02 11:16 | CCD | Continuity of Care Document ---
Author Author Laboratory Claude Stallings Organization Unknown Address 3 [facility] [address] [place] [address] Phone [phone] Problems Active Problems Provider Date Hyperlipidemia Ryan [...] CPT Code Status Date Vaccine Lot # [id number] Given 10/31/2019 Influenza Virus Vaccine, Quadrivalent, Slit Virus, Im Use 3Y & Up [id number] 66429 Given 12/07/2018 Influenza Virus Vaccine, Quadrivalent, Slit Virus, Im Use 3Y & Up [id number] 88362 Given 11/25/2017 Influenza Virus Vaccine, Quadrivalent, Slit Virus, Im Use 3Y & Up [id number] 47744 Given 12/11/2016 Influenza Virus Vaccine, Quadrivalent, Slit Virus, Im Use 3Y & Up [id number] 11484 Given 12/20/2015 Influenza Virus Vaccine, Quadrivalent, Slit Virus, Im Use 3Y & Up [id number] 50382 Given 12/20/2014 Influenza Vaccin e (Fluzone) 3Yrs Of Age Or Older Medicare Plans [id number] 93691 Given 01/23/2014 Influenza Vaccin e (Fluzone) 3Yrs Of Age Or Older Medicare Plans [id number] Vital Signs Date Vital Result Comment 01/06/2020 11:37am BP Systolic 140 mmHg BP Diastolic 74 mmHg Body Temperature 97.9 F Heart Rate 82 /min Respiratory Rate 16 /min Height 67 inches 5'7" Weight 181.00 lb [place] Body Weight 148 lb BMI (Body Mass Index) 28.3 kg/m2 O2 % BldC Oximetry 98 % 10/31/2019 3:38pm BP Systolic 138 mmHg BP Diastolic 74 mmHg Body Temperature 99.1 F Heart Rate 74 /min Respiratory Rate 14 /min Height 67 inches 5'7" Weight 183.00 lb [place] Body Weight 148 lb BMI (Body Mass [...] eGFR 79 # Calc 2 eGFR Non-Afr. Turkish 68 # Calc 3 Lipid Panel 01/18/2020 [...] HCT IS 5% LESS SOURCE FOR DATA: [employer] 1800 OPERATION MANUAL( AUTOMATED BLOOD COUNTS AND [...] Provider Dx Diagnosis Office Visit 01/06/2020 11:30a [place] [facility] Helen Romo PA G25.0 Essential tremor Office Visit 10/31/2019 2:30p [place] [facility] Ryan Monae M. D. G25.0 Essential tremor Z23 Encounter for immunization Assessments Date Code Description Provider 01/18/2020 E78.5 Hyperlipidemia, unspecified [facility] Ryan nolan M.D. 01/06/2020 G25.0 Essential tremor Sa karina Romo PA 10/31/2019 G25.0 Essential tremor Ryan Monae M.D. 10/31/2019 Z23 Encounter for immunization Ryan Hardy M.D. Plan of Treatment Future Appointment(s):* 01/24/2020 10:20 am - Ryan Monae M.D. at [facility] Functional Status Description No Information Available Mental Status Description No Information Available Referrals Refer to Dr Reason for Referral Status Appt Date Vielka Zimmer tremor- eval and rx Sent 11/14/2019 [facility] [address] [address] [phone]
--- OUTSIDE RECORDS SUMMARY | 2020-04-02 11:16 | CCD | Continuity of Care Document ---
Author Author Laboratory Claude Stallings Organization Unknown Address 3 [facility] [address] [place] [address] Phone [phone] Problems Active Problems Provider Date Hyperlipidemia Ryan [...] CPT Code Status Date Vaccine Lot # 16736 Given 10/31/2019 Influenza Virus Vaccine, Quadrivalent, Slit Virus, Im Use 3Y & Up [id number] 25095 Given 12/07/2018 Influenza Virus Vaccine, Quadrivalent, Slit Virus, Im Use 3Y & Up [id number] 03775 Given 11/25/2017 Influenza Virus Vaccine, Quadrivalent, Slit Virus, Im Use 3Y & Up [id number] 19725 Given 12/11/2016 Influenza Virus Vaccine, Quadrivalent, Slit Virus, Im Use 3Y & Up [id number] 84466 Given 12/20/2015 Influenza Virus Vaccine, Quadrivalent, Slit Virus, Im Use 3Y & Up [id number] 18628 Given 12/20/2014 Influenza Vaccin e (Fluzone) 3Yrs Of Age Or Older Medicare Plans [id number] 11084 Given 01/23/2014 Influenza Vaccin e (Fluzone) 3Yrs Of Age Or Older Medicare Plans [id number] Vital Signs Date Vital Result Comment 01/06/2020 11:37am BP Systolic 140 mmHg BP Diastolic 74 mmHg Body Temperature 97.9 F Heart Rate 82 /min Respiratory Rate 16 /min Height 67 inches 5'7" Weight 181.00 lb [place] Body Weight 148 lb BMI (Body Mass Index) 28.3 kg/m2 O2 % BldC Oximetry 98 % 10/31/2019 3:38pm BP Systolic 138 mmHg BP Diastolic 74 mmHg Body Temperature 99.1 F Heart Rate 74 /min Respiratory Rate 14 /min Height 67 inches 5'7" Weight 183.00 lb [place] Body Weight 148 lb BMI (Body Mass Index) 28.7 kg/m2 O2 % BldC Oximetry 97 % Results Description No Information Available Procedures Description No Information Available Medical Devices Description No Information Available Encounters Type Date Location Provider Dx Diagnosis Office Visit 01/06/2020 11:30a [place] [facility] Helen Romo PA G25.0 Essential tremor Office Visit 10/31/2019 2:30p [place] [facility] Ryan Monae M. D. G25.0 Essential tremor Z23 Encounter for immunization Office Visit 07/20/2019 3:20p [place] [facility] Ryan Monae M. D. G25.0 Essential tremor Assessments Date Code Description Provider 01/06/2020 G25.0 Essential tremor Sa karina Romo PA 10/31/2019 G25.0 Essential tremor Ryan Monae M.D. 10/31/2019 Z23 Encounter for immunization Ryan Hardy M.D. 07/20/2019 G25.0 Essential tremor Ryan Monae M.D. Plan of Treatment Future Appointment(s):* 01/24/2020 10:20 am - Ryan Monae M.D. at [facility] Functional Status Description No Information Available Mental Status Description No Information Available Referrals Refer to Dr Reason for Referral Status Appt Date Vielka Zimmer tremor- eval and rx Sent 11/14/2019 [facility] [address] [address] [phone]
--- OUTSIDE RECORDS SUMMARY | 2020-04-02 11:17 | CCD ---
Author Author [facility] Organization [facility] Address Unknown Phone Unavailable Care Team Providers Care Maintenance Clerk Name Role Phone Roosevelt Chino, Zulma Marmolejo MD, FACS Unavailable Unavailable Albert Chino, Zulma Marmolejo MD, FACS Unavailable Unavailable Albert Chino, Zulma Marmolejo MD, FACS Unavailable Unavailable Albert Chino, Zulma Marmolejo MD, FACS Unavailable Unavailable Albert Chino, Zulma Marmolejo MD, FACS Unavailable Unavailable Albert Chino, Zulma Marmolejo MD, FACS Unavailable Unavailable Albert Chino, Zulma Marmolejo MD, FACS Unavailable Unavailable Albert Chino, Zulma Marmolejo MD, FACS Unavailable Unavailable Albert Chino, Zulma Marmolejo MD, FACS Unavailable Unavailable Albert Chino, Zulma Marmolejo MD, FACS Unavailable Unavailable Albert Chino, Zulma Marmolejo MD, FACS Unavailable Unavailable Albert Chino, Zulma Marmolejo MD, FACS Unavailable Unavailable Albert Chino, Zulma Marmolejo MD, FACS Unavailable Unavailable Albert Chino, Zulma Marmolejo MD, FACS Unavailable Unavailable Albert Chino, Zulma Marmolejo MD, FACS Unavailable Unavailable Albert Chino, Zulma Marmolejo MD, FACS Unavailable Unavailable Albert Chino, Zulma Marmolejo MD, FACS Unavailable Unavailable Albert Chino, Zulma Marmolejo MD, FACS Unavailable Unavailable Albert Chino, Zulma Marmolejo MD, FACS Unavailable Unavailable Albert Chino, Zulma Marmolejo MD, FACS Unavailable Unavailable Albert Chino, Zulma Marmolejo MD, FACS Unavailable Unavailable Albert Chino, Zulma Marmolejo MD, FACS Unavailable Unavailable Albert Chino, Zulma Marmolejo MD, FACS Unavailable Unavailable Albert Chino, Zulma Marmolejo MD, FACS Unavailable Unavailable Albert Chino, Zulma Marmolejo MD, FACS Unavailable Unavailable Albert Chino, Zulma Marmolejo MD, FACS Unavailable Unavailable Albert Chino, Zulma Marmolejo MD, FACS Unavailable Unavailable Albert Chino, Zulma Marmolejo MD, FACS Unavailable Unavailable Albert Chino, Zulma Marmolejo MD, FACS Unavailable Unavailable Albert Chino, Zulma Marmolejo MD, FACS Unavailable Unavailable Albert Chino, Zulma Marmolejo MD, FACS Unavailable Unavailable Albert Chino, Zulma Marmolejo MD, FACS Unavailable Unavailable Roosevelt Chino, Zulma Marmolejo MD, FACS Unavailable Unavailable Roosevelt Chino, Zulma Marmolejo MD, FACS Unavailable Unavailable Barraclough, Grisel PA Unavailable Unavailable Barraclough, Grisel PA Unavailable Unavailable Barraclough, Grisel PA Unavailable Unavailable Barraclough, Grisel PA Unavailable Unavailable Barraclough, Grisel PA Unavailable Unavailable Barraclough, Grisel PA Unavailable Unavailable MAJAK, R SARABJIT DPM Unavailable Unavailable MAJAK, R SARABJIT DPM Unavailable Unavailable MAJAK, R SARABJIT DPM Unavailable Unavailable MAJAK, R SARABJIT DPM Unavailable Unavailable MAJAK, R SARABJIT DPM Unavailable Unavailable MAJAK, R SARABJIT DPM Unavailable Unavailable MAJAK, R SARABJIT DPM Unavailable Unavailable MAJAK, R SARABJIT DPM Unavailable Unavailable MAJAK, R SARABJIT DPM Unavailable Unavailable MAJAK, R SARABJIT DPM Unavailable Unavailable MAJAK, R SARABJIT DPM Unavailable Unavailable MAJAK, R SARABJIT DPM Unavailable Unavailable MAJAK, R SARABJIT DPM Unavailable Unavailable MAJAK, R SARABJIT DPM Unavailable Unavailable MAJAK, R SARABJIT DPM Unavailable Unavailable MAJAK, R SARABJIT DPM Unavailable Unavailable MAJAK, R SARABJIT DPM Unavailable Unavailable MAJAK, R SARABJIT DPM Unavailable Unavailable MAJAK, R SARABJIT DPM Unavailable Unavailable MAJAK, R SARABJIT DPM Unavailable Unavailable MAJAK, R SARABJIT DPM Unavailable Unavailable MAJAK, R SARABJIT DPM Unavailable Unavailable MAJAK, R SARABJIT DPM Unavailable Unavailable MAJAK, R SARABJIT DPM Unavailable Unavailable MAJAK, R SARABJIT DPM Unavailable Unavailable MAJAK, R SARABJIT DPM Unavailable Unavailable MAJAK, R SARABJIT DPM Unavailable Unavailable MAJAK, R SARABJIT DPM Unavailable Unavailable MAJAK, R SARABJIT DPM Unavailable Unavailable MAJAK, R SARABJIT DPM Unavailable Unavailable Pedro PEGUERO MD Unavailable Unavailable Pedro PEGUERO MD Unavailable Unavailable Pedro PEGUERO MD Unavailable Unavailable Pedro PEGUERO MD Unavailable Unavailable Pedro PEGUERO MD Unavailable Unavailable Pedro PEGUERO MD Unavailable Unavailable Pedro PEGUERO MD Unavailable Unavailable Pedro PEGUERO MD Unavailable Unavailable Pedro PEGUERO MD Unavailable Unavailable Pedro PEGUERO MD Unavailable Unavailable Pedro PEGUERO MD Unavailable Unavailable Pedro PEGUERO MD Unavailable Unavailable Pedro PEGUERO MD Unavailable Unavailable Pedro PEGUERO MD Unavailable Unavailable Pedro PEGUERO MD Unavailable Unavailable Pedro PEGUERO MD Unavailable Unavailable Pedro PEGUERO MD Unavailable Unavailable Pedro PEGUERO MD Unavailable Unavailable SUDHIR H DARRYL EDEN Unavailable Unavailable SUDHIR H DARRYL EDEN Unavailable Unavailable SUDHIR H DARRYL EDEN Unavailable Unavailable SUDHIR H DARRYL DEEN Unavailable Unavailable SUDHIR H DARRYL EDEN Unavailable Unavailable SUDHIR H DARRYL EDEN Unavailable Unavailable SUDHIR H DARRYL EDEN Unavailable Unavailable SUDHIR H DARRYL EDEN Unavailable Unavailable SUDHIR H DARRYL EDEN Unavailable Unavailable SUDHIR H DARRYL EDEN Unavailable Unavailable SUDHIR, H DARRYL EDEN Unavailable Unavailable SUDHIR H DARRYL EDEN Unavailable Unavailable SUDHIR, H DARRYL MD Unavailable Unavailable SUDHIR H DARRYL MD Unavailable Unavailable SUDHIR H DARRYL MD Unavailable Unavailable SUDHIR H DARRYL MD Unavailable Unavailable SUDHIR H DARRYL EDEN Unavailable Unavailable SUDHIR H DARRYL EDEN Unavailable Unavailable SUDHIR, H DARRYL MD Unavailable Unavailable SUDHIR, H DARRYL MD Unavailable Unavailable SUDHIR H DARRYL EDEN Unavailable Unavailable SUDHIR H DARRYL EDEN Unavailable Unavailable SUDHIR H DARRYL EDEN Unavailable Unavailable Pedro PEGUERO MD Unavailable Unavailable SUDHIR H DARRYL EDEN Unavailable Unavailable Pedro PEGUERO MD Unavailable Unavailable Pedro PEGUERO MD Unavailable Unavailable SUDHIR H DARRYL EDEN Unavailable Unavailable Pedro PEGUERO MD Unavailable Unavailable Pedro PEGUERO MD Unavailable Unavailable Pedro PEGUERO MD Unavailable Unavailable Pedro PEGUERO MD Unavailable Unavailable Pedro PEGUERO MD Unavailable Unavailable Pedro PEGUERO MD Unavailable Unavailable Pedro PEGUERO MD Unavailable Unavailable Pedro PEGUERO MD Unavailable Unavailable Pedro PEGUERO MD Unavailable Unavailable Pedro PEGUERO MD Unavailable Unavailable Pedro PEGUERO MD Unavailable Unavailable Pedro PEGUERO MD Unavailable Unavailable Pedro PEGUERO MD Unavailable Unavailable Pedro PEGUERO MD Unavailable Unavailable Pedro PEGUERO MD Unavailable Unavailable Pedro PEGUERO MD Unavailable Unavailable Pedro PEGUERO MD Unavailable Unavailable Pedro PEGUERO MD Unavailable Unavailable Pedro PEGUERO MD Unavailable Unavailable Pedro PEGUERO MD Unavailable Unavailable Pdero PEGUERO MD Unavailable Unavailable Pedro PEGUERO MD Unavailable Unavailable Pedro PEGUERO MD Unavailable Unavailable Pedro PEGUERO MD Unavailable Unavailable Pedro PEGUERO MD Unavailable Unavailable Pedro PEGUERO MD Unavailable Unavailable SUDHIR H DARRYL EDEN Unavailable Unavailable Pedro PEGUERO MD Unavailable Unavailable Pedro PEGUERO MD Unavailable Unavailable Pedro PEGUERO MD Unavailable Unavailable Ben Brownlee MD Unavailable Unavailable Ben Brownlee MD Unavailable Unavailable Ben Brownlee MD Unavailable Unavailable Ben Brownlee MD Unavailable Unavailable Ben Brownlee MD Unavailable Unavailable Ben Brownlee MD Unavailable Unavailable Ben Brownlee MD Unavailable Unavailable Ben Brownlee MD Unavailable Unavailable Ben Brownlee MD Unavailable Unavailable Ben Brownlee MD Unavailable Unavailable Ben Brownlee MD Unavailable Unavailable Ben Brownlee MD Unavailable Unavailable Ben Brownlee MD Unavailable Unavailable Ben Brownlee MD Unavailable Unavailable Ben Brownlee MD Unavailable Unavailable Ben Brownlee MD Unavailable Unavailable Ben Brownlee MD Unavailable Unavailable Ben Brownlee MD Unavailable Unavailable Ben Brownlee MD Unavailable Unavailable Ben Brownlee MD Unavailable Unavailable Ben Brownlee MD Unavailable Unavailable Ben Brownlee MD Unavailable Unavailable Ben Brownlee MD Unavailable Unavailable Ben Brownlee MD Unavailable Unavailable Ben Brownlee MD Unavailable Unavailable Ben Brownlee MD Unavailable Unavailable Ben Brownlee MD Unavailable Unavailable Ben Brownlee MD Unavailable Unavailable Eduardo Young MD Unavailable Unavailable Eduardo Young MD Unavailable Unavailable Eduardo Young MD Unavailable Unavailable Eduardo Young MD Unavailable Unavailable Eduardo Young MD Unavailable Unavailable Eduardo Young MD Unavailable Unavailable Eduardo Young MD Unavailable Unavailable Eduardo Young MD Unavailable Unavailable Eduardo Young MD Unavailable Unavailable Eduardo Young MD Unavailable Unavailable Eduardo Young MD Unavailable Unavailable Eduardo Young MD Unavailable Unavailable Eduardo Young MD Unavailable Unavailable Eduardo Young MD Unavailable Unavailable Eduardo Young MD Unavailable Unavailable Eduardo Young MD Unavailable Unavailable Eduardo Young MD Unavailable Unavailable Eduardo Young MD Unavailable Unavailable Eduardo Young MD Unavailable Unavailable Eduardo Young MD Unavailable Unavailable Eduardo Young MD Unavailable Unavailable Eduardo Young MD Unavailable Unavailable Eduardo Young MD Unavailable Unavailable Eduardo Yougn MD Unavailable Unavailable Eduardo Young MD Unavailable Unavailable Eduardo Young MD Unavailable Unavailable Eduardo Young MD Unavailable Unavailable Eduardo Young MD Unavailable Unavailable Eduardo Young MD Unavailable Unavailable Eduardo Young MD Unavailable Unavailable Eduardo Young MD Unavailable Unavailable Eduardo Young MD Unavailable Unavailable Eduardo Young MD Unavailable Unavailable Eduardo Young MD Unavailable Unavailable Eduardo Young MD Unavailable Unavailable Eduardo Young MD Unavailable Unavailable Eduardo Young MD Unavailable Unavailable Eduardo Young MD Unavailable Unavailable Eduardo Young MD Unavailable Unavailable Eduardo Young MD Unavailable Unavailable Eduardo Young MD Unavailable Unavailable Eduardo Young MD Unavailable Unavailable Eduardo Young MD Unavailable Unavailable Eduardo Young MD Unavailable Unavailable Eduardo Young MD Unavailable Unavailable Eduardo Young MD Unavailable Unavailable Eduardo Young MD Unavailable Unavailable Eduardo Young MD Unavailable Unavailable Eduardo Young MD Unavailable Unavailable Eduardo Young MD Unavailable Unavailable Eduardo Young MD Unavailable Unavailable Eduardo Young MD Unavailable Unavailable Eduardo Young MD Unavailable Unavailable Eduardo Young MD Unavailable Unavailable Eduardo Young MD Unavailable Unavailable Eduardo Young MD Unavailable Unavailable Eduardo Young MD Unavailable Unavailable Eduardo Young MD Unavailable Unavailable Eduardo Young MD Unavailable Unavailable Eduardo Young MD Unavailable Unavailable Eduardo Young MD Unavailable Unavailable Eduardo Yonug MD Unavailable Unavailable Eduardo Young MD Unavailable Unavailable Eduardo Young MD Unavailable Unavailable Eduardo Young MD Unavailable Unavailable Eduardo Young MD Unavailable Unavailable Eduardo Young MD Unavailable Unavailable Eduardo Young MD Unavailable Unavailable Eduardo Young MD Unavailable Unavailable Eduardo Young MD Unavailable Unavailable Eduardo Young MD Unavailable Unavailable Eduardo oYung MD Unavailable Unavailable Eduardo Young MD Unavailable Unavailable Eduardo Young MD Unavailable Unavailable Eduardo Young MD Unavailable Unavailable Eduardo Young MD Unavailable Unavailable Re-disclosure Warning The records that you are about to access may contain information from federally-assisted alcohol or drug abuse programs. If such information is present, then the following federally mandated warning applies: This information has been disclosed to you from records protected by federal confidentiality rules (42 CFR part 2). The federal rules prohibit you from making any further disclosure of this information unless further disclosure is expressly permitted by the written consent of the person to whom it pertains or as otherwise permitted by 42 CFR part 2. A general authorization for the release of medical or other information is NOT sufficient for this purpose. The Federal rules restrict any use of the information to criminally investigate or prosecute any alcohol or drug abuse patient.The records that you are about to access may contain highly sensitive health information, the redisclosure of which is protected by Article 27-F of the [facility] Public Health law. If you continue you may have access to information: Regarding HIV / AIDS; Provided by facilities licensed or operated by the [facility] Office of Mental Health; or Provided by the [facility] Office for People With Developmental Disabilities. If such information is present, then the following [facility] mandated warning applies: This information has been disclosed to you from confidential records which are protected by state law. State law prohibits you from making any further disclosure of this information without the specific written consent of the person to whom it pertains, or as otherwise permitted by law. Any unauthorized further disclosure in violation of state law may result in a fine or fpc sentence or both. A general authorization for the release of medical or other information is NOT sufficient authorization for further disc losure. Encounters Encounter Providers Location Date Indications Data Source(s ) Office Visit Attender: Donovan Young MD [facility] 02/23/2020 01:00:00 PM EST [facility] Outpatient Attender: DARRYL PEGUERO MD [facility] 09/2019 09:20:00 AM EST [facility] Outpatient Attender: Grisel POMPA [facility] 01/06/2020 10:30:00 AM EST [facility] ([facility] Outpatient Attender: Donovan Young MD [facility] 11/14/2019 09:30:00 AM EDT [facility] ([facility] Outpatient Attender: DARRYL PEGUERO MD [place] [facility] 02:30:00 PM EDT [facility] ([facility] Outpatient<td ID="encounterTypeDescripti onID0">10 Month followup with Testing</td><td>Jaleel Gallegos MD, FACS</td><td>Jaleel Gallegos MD [facility]</td><td>10/21/2019</td><td>1:28PM</td><td>2:41PM</td><td><content ID="encounterDiagnosisID0-0">Essential Hypertension</content>, <content ID="encounterDiagnosisID0-1">Borderline Glaucoma Ocular Hypertension Both Eyes</content>, <content ID="encounterDiagnosisID0-2">Posterior Capsule Opacification Eccentric Capsule Left Eye</content>, <content ID="encounterDiagnosisID0-3">Pseudophakia</content>, <content ID="encounterDiagnosisID0-4">Macular Degeneration Nonexudative Bilateral Early Dry Stage</content></td> Attender: Jaleel Chino MD, FACS [facility] 10/21/2019 01:28:00 PM EDT - 10/21/2019 02:41:00 PM ED T Macular Degeneration Nonexudative Bilateral Early Dry StagePosterior Capsule Opacification Eccentric Capsule Left EyePseudophakiaEssential HypertensionBorderline Glaucoma Ocular Hypertension Both Eyes EUGENIO (Jaleel Chino MD [facility]) Macular Degeneration Nonexudative Bilate ral Early Dry Stage Posterior Capsule Opacification Eccentri c Capsule Left Eye Pseudophakia Essential Hypertension Borderline Glaucoma Ocular Hypertension Both Eyes [facility]: [facility]00 PM EDT [facility] Outpatient Attender: DARRYL PEGUERO MD [place] [facility] 04/2019 03:20:00 PM EDT [facility] ([facility] Outpatient Attender: Ben Cid/Kem/Marcus/[place] 06/20/2019 01:40:00 PM EDT [facility] ([facility] Outpatient Attender: DARRYL PEGUERO MD [place] [facility] 10:20:00 AM EDT [facility] ([facility] [place]patient [place]: [place] [facility] 12:00:00 PM EST [facility] ([facility] Immunizations Vaccine Date Status Description Data Source(s) New in 2012. IIV4 10/31/2019 03:37:00 PM EDT completed [facility] ([facility] Medications Medication Brand Name Start Date Product Form Dose Route Admi nistrative Instructions Pharmacy Instructions Status Indications Reaction Description Data Source(s) Carbidopa 25 MG / Levodopa 100 MG Oral Tablet Carbidopa-Levo dopa 01/11/2020 12:00:00 AM EST ORAL active M [facility] ([facility], ) Diazepam 5 MG Oral Tablet Diazepam 11/18/2019 12:00:00 AM EDT active [facility] ([facility] ) Primidone 50 MG Oral Tablet Primidone 06/14/2019 12:00:00 AM EDT ORAL completed [facility] ([facility] Esomeprazole 40 MG Delayed Release Oral Capsule Esomeprazole Magnesium 04/26/2019 12:00:00 AM EDT ORAL active [facility] ([facility] Esomeprazole 40 MG Delayed Release Oral Capsule Esomeprazole Magnesium 04/26/2019 12:00:00 AM EDT ORAL active [facility] ([facility] ) Escitalopram 10 MG Oral Tablet [Lexapro] Lexapro 02/14/2019 12:00: 00 AM EST ORAL completed [facility] ([facility] Insurance Providers Payer name Policy type / Coverage type Policy ID Covered republican ID Covered republican's relationship to lazcano Policy Lazcano Plan Information [facility] [id number] SP [id number] MEDICARE [id number] SP [id number] [employer] [place] Other 0 Self 0 Medicare Part B [facility] Other 0 Se lf 0 R [facility] [id number] SP [id number] MEDICARE [id number] SP [id number] A [employer] [place] Other 0 Self 0 Medicare Part B of [facility] Other 0 Se lf 0 UMR [id number] Jasmin [id number] MEDICARE [id number] Jasmin [id number] [employer] [id number] SP [id number] MEDICARE C [id number] S [id number] A [employer] PPO O [id number] S [id number] MEDICARE C [id number] S [id number] A [id number] Problems, Conditions, and Diagnoses Code Display Name Description Problem Type Effective Dates Data Source(s) 85444364 Tremor Tremor Problem 11/14/2019 12:00:00 AM ED T [facility] ([facility], ) [id number] 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 Bilateral Early Dry Stage Problem 12:00:00 AM EDT EUGENIO (Jaleel Chino MD [facility]) [id number] Ingrowing nail Ingrowing nail Problem 08/16/2019 12:00: 00 AM EDT [facility] ([facility] [id number] Onychomycosis Onychomycosis Problem 08/16/2019 12:00:00 AM EDT [facility] ([facility] [id number] Pain in limb Pain in limb Problem 08/16/2019 12:00:00 A M EDT [facility] ([facility] Surgeries/Procedures Procedure Description Date Indications Data Source(s) DEBRIDEMENT NAIL ANY METHOD 03/05/2020 12:00:00 AM EST [facility] ([facility] TSTG ANS FUNCJ CARDIOVAGAL INNERVAJ PARASYMP 0 12:00:00 AM EST [facility] ([facility], ) TSTG ANS FUNCJ CARDIOVAGAL INNERVAJ PARASYMP 0 12:00:00 AM EST [facility] ([facility], ) TESTING AUTONOMIC NERVOUS SYSTEM FUNCTION 01/25/2020 1 2:00:00 AM EST [facility] ([facility], ) TESTING AUTONOMIC NERVOUS SYSTEM FUNCTION 01/25/2020 1 2:00:00 AM EST [facility] ([facility], ) DEBRIDEMENT NAIL ANY METHOD 01/02/2020 12:00:00 AM EST [facility] ([facility] ELECTROENCEPHALOGRAM W/REC AWAKE&ASLEEP 12/26/2019 12: 00:00 AM EST [facility] ([facility], ) ELECTROENCEPHALOGRAM W/REC AWAKE&ASLEEP 12/26/2019 12: 00:00 AM EST [facility] ([facility]) MRI BRAIN BRAIN STEM W/O CONTRAST MATERIAL 11/22/2019 12:00:00 AM EDT [facility] ([facility]) MRI BRAIN BRAIN STEM W/O CONTRAST MATERIAL 11/22/2019 12:00:00 AM EDT [facility] ([facility]) DEBRIDEMENT NAIL ANY METHOD 10/25/2019 12:00:00 AM EDT [facility] Discission of membranous cataract, secondary (procedur e) 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 Gallegos 10/21/2019 12:00:00 AM EDT EUGENIO (Luther Chino MD [facility]) COMPUTERIZED OPHTHALMIC IMAGING RETINA Scodi Retina, w ith interpretation and report (GA) 10/21/2019 12:00:00 AM EDT EUGENIO (Luther Chino MD [facility]) Comprehensive eye exam established patient (25) Compre hensive eye exam established patient (25) 10/21/2019 12:00:00 AM EDT EUGENIO (Jaleel Chino MD [facility]) DEBRIDEMENT NAIL ANY METHOD 08/15/2019 12:00:00 AM EDT [facility] LARYNGOSCOPY FLEXIBLE FIBEROPTIC DIAGNOSTIC 06/20/2019 12:00:00 AM EDT [facility] ([facility], ) Binocular Microscopy 06/20/2019 12:00:00 AM EDT [facility] ([facility], ) Results ID Date Data Source [id number] 01/27/2020 01:13:00 PM EST [facility] ([facility] Name Value Range Interpretation Code Description Data Michelle rce(s) Supporting Document(s) Occult Blood Laboratory test result [facility] ([facility] ID Date Data Source [id number] 01/24/2020 10:48:00 AM EST [facility] ([facility] Name Value Range Interpretation Code Description Data Michelle rce(s) Supporting Document(s) Iron binding capacity [Mass/volume] in Serum or Plasma 262 ug/dL 250 -450 [facility] ([facility] Iron binding capacity.unsaturated [Mass/volume] in Serum or Plasma 187 ug/dL 111-343 [facility] ([facility] Iron saturation [Mass Fraction] in Serum or Plasma 29 % 15-55 [facility] ([facility] Iron [Mass/volume] in Serum or Plasma 75 ug/dL 38-169 [facility] ([facility] ID Date Data Source [id number] 01/24/2020 10:48:00 AM EST [facility] ([facility] Name Value Range Interpretation Code Description Data Michelle rce(s) Supporting Document(s) RBC 3.78 10E6/uL 4.20-6.30 Below low normal [facility] ([facility] NORMAL RANGES Age WBC RBC HGB HCT MCV PLT Adult M 4.1-10.9 4.20-6.30 12.0-18.0 37.0-51.0 80- 140-440 Adult F 4.1-10.9 4.04-5.48 12.0-18.0 37.0-51.0 80 140-440 0 -1 Yr 5.0-20.0 3.9-5.9 15-18 [...] HCT IS 5% LESS SOURCE FOR DATA: [employer] 1800 [employer]PERATION MANUAL( AUTOMATED BLOOD COUNTS AND DIFF.) APPENDIX B-3 WBC 3.5 10E3/uL 4.1-10.9 Below low normal [facility] NORMAL RANGES Age WBC RBC HGB HCT MCV PLT Adult M 4.1-10.9 4.20-6.30 12.0-18.0 37.0-51.0 80 140-440 Adult F 4.1-10.9 4.04-5.48 12.0-18.0 37.0-51.0 80 140-440 0 -1 Yr 5.0-20.0 3.9-5.9 15-18 [...] HCT IS 5% LESS SOURCE FOR DATA: [employer] OPERATION MANUAL( AUTOMATED BLOOD COUNTS AND DIFF.) APPENDIX B-3 HGB 10.8 g/dL 12.0-18.0 Below low normal [facility] ( [facility] NORMAL RANGES Age WBC RBC HGB HCT [...] AUTOMATED BLOOD COUNTS AND DIFF.) APPENDIX B-3 HCT 33.5 % 37.0-51.0 Below low normal [facility] ( [facility] NORMAL RANGES Age WBC RBC HGB HCT [...] AUTOMATED BLOOD COUNTS AND DIFF.) APPENDIX B-3 MCV 88.6 fL 80.0-97.0 [facility] ([facility] NORMAL RANGES Age WBC RBC HGB HCT [...] HCT IS 5% LESS SOURCE FOR DATA: [employer] 1800 OPERATION MANUAL( AUTOMATED BLOOD COUNTS AND DIFF.) APPENDIX B-3 MCH 28.6 pg 26.0-32.0 [facility] ([facility] NORMAL RANGES Age WBC RBC HGB HCT [...] HCT IS 5% LESS SOURCE FOR DATA: [employer] 1800 OPERATION MANUAL( AUTOMATED BLOOD COUNTS AND DIFF.) APPENDIX B-3 MCHC 32.2 g/dL 31.0-36.0 [facility] NORMAL RANGES Age WBC RBC HGB HCT [...] HCT IS 5% LESS SOURCE FOR DATA: [place] 1800 OPERATION MANUAL( AUTOMATED BLOOD COUNTS AND DIFF.) APPENDIX B-3 PLT 139 10E3/uL 140-440 Below low normal [facility] ([facility] NORMAL RANGES Age WBC RBC HGB HCT [...] HCT IS 5% LESS SOURCE FOR DATA: [place] 1800 OPERATION MANUAL( AUTOMATED BLOOD COUNTS AND DIFF.) APPENDIX B-3 RDW-CV 12.9 % 11.5-14.5 [facility] ([facility] NORMAL RANGES Age WBC RBC HGB HCT MCV PLT Adult M 4.1-10.9 4.20-6.30 12.0-18.0 37.0-51.0 80- 140-440 Adult F 4.1-10.9 4.04-5.48 12.0-18.0 37.0-51.0 80- 140-440 0 -1 Yr 5.0-20.0 3.9-5.9 15-18 [...] AUTOMATED BLOOD COUNTS AND DIFF.) APPENDIX B-3 Lym% 23.9 % 10.0-58.5 [facility] ([facility] NORMAL RANGES Age WBC RBC HGB HCT [...] AUTOMATED BLOOD COUNTS AND DIFF.) APPENDIX B-3 Neut% 68.5 % 37.0-92.0 [facility] ([facility] NORMAL RANGES Age WBC RBC HGB HCT [...] HCT IS 5% LESS SOURCE FOR DATA: [place] 1800 OPERATION MANUAL( AUTOMATED BLOOD COUNTS AND DIFF.) APPENDIX B-3 MXD% 7.6 % 0.1-24.0 [facility] ([facility] NORMAL RANGES Age WBC RBC HGB HCT [...] HCT IS 5% LESS SOURCE FOR DATA: [place] 1800 OPERATION MANUAL( AUTOMATED BLOOD COUNTS AND DIFF.) APPENDIX B-3 Neut# 2.4 % 2.0-7.8 [facility] ([facility] NORMAL RANGES Age WBC RBC HGB HCT MCV PLT Adult M 4.1-10.9 4.20-6.30 12.0-18.0 37.0-51.0 80- 140-440 Adult F 4.1-10.9 4.04-5.48 12.0-18.0 37.0-51.0 80 140-440 0 -1 Yr 5.0-20.0 3.9-5.9 15-18 [...] HCT IS 5% LESS SOURCE FOR DATA: [place] 1800 OPERATION MANUAL( AUTOMATED BLOOD COUNTS AND DIFF.) APPENDIX B-3 Lym# 0.8 10E3/uL 0.6-4.1 [facility] ([facility] NORMAL RANGES Age WBC RBC HGB HCT MCV PLT Adult M 4.1-10.9 4.20-6.30 12.0-18.0 37.0-51.0 80 140-440 Adult F 4.1-10.9 4.04-5.48 12.0-18.0 37.0-51.0 [...] HCT IS 5% LESS SOURCE FOR DATA: [place] 1800 OPERATION MANUAL( AUTOMATED BLOOD COUNTS AND DIFF.) APPENDIX B-3 MXD# 0.3 10E3/uL 0.0-1.8 [facility] ([facility] NORMAL RANGES Age WBC RBC HGB HCT [...] IS 5% LESS SOURCE FOR DATA: FITO fl3ur 1800 OPERATION MANUAL( AUTOMATED BLOOD COUNTS AND DIFF.) APPENDIX B-3 MPV 10.3 fL 9.0-13.0 [facility] ([facility] NORMAL RANGES Age WBC RBC HGB HCT [...] AUTOMATED BLOOD COUNTS AND DIFF.) APPENDIX B-3 ID Date Data Source [id number] 01/18/2020 11:24:00 AM EST [facility] ([facility] Name Value Range Interpretation Code Description Data Michelle rce(s) Supporting Document(s) RBC 3.69 10E6/uL 4.20-6.30 Below low normal [facility] ([facility] NORMAL RANGES Age WBC RBC HGB HCT [...] DESIRABLE: <130 MG/DL <110 MG/DL BORDERLINE-HIGH RISK: 130- 159 MG/DL 110-129 MG/DL HIGH RISK: >160 MG/DL >130 MG/DL *CHILDREN AND ADOLESCENTS REPRESENTS INDIVIDUALA AGED 2-19 YEARS EXCLUSIVE. WBC 4.7 10E3/uL 4.1-10.9 [facility] ([facility] NORMAL RANGES Age WBC RBC HGB HCT [...] HCT IS 5% LESS SOURCE FOR DATA: [place] 1800 OPERATION MANUAL( AUTOMATED BLOOD COUNTS AND [...] DESIRABLE: <130 MG/DL <110 MG/DL BORDERLINE-HIGH RISK: 130- 159 MG/DL 110-129 MG/DL HIGH RISK: >160 MG/DL >130 MG/DL *CHILDREN AND ADOLESCENTS REPRESENTS INDIVIDUALA AGED 2-19 YEARS EXCLUSIVE. MCV 89.4 fL 80.0-97.0 [facility] ([facility] NORMAL RANGES Age WBC RBC HGB HCT [...] HCT IS 5% LESS SOURCE FOR DATA: [place] 1800 OPERATION MANUAL( AUTOMATED BLOOD COUNTS AND [...] DESIRABLE: <130 MG/DL <110 MG/DL BORDERLINE-HIGH RISK: 130- 159 MG/DL 110-129 MG/DL HIGH RISK: >160 MG/DL >130 MG/DL *CHILDREN AND ADOLESCENTS REPRESENTS INDIVIDUALA AGED 2-19 YEARS EXCLUSIVE. HCT 33.0 % 37.0-51.0 Below low normal [facility] ( [facility] NORMAL RANGES Age WBC RBC HGB HCT [...] DESIRABLE: <130 MG/DL <110 MG/DL BORDERLINE-HIGH RISK: 130- 159 MG/DL 110-129 MG/DL HIGH RISK: >160 MG/DL >130 MG/DL *CHILDREN AND ADOLESCENTS REPRESENTS INDIVIDUALA AGED 2-19 YEARS EXCLUSIVE. HGB 10.8 g/dL 12.0-18.0 Below low normal [facility] ( [facility] NORMAL RANGES Age WBC RBC HGB HCT [...] HCT IS 5% LESS SOURCE FOR DATA: [place] 1800 OPERATION MANUAL( AUTOMATED BLOOD COUNTS AND [...] DESIRABLE: <130 MG/DL <110 MG/DL BORDERLINE-HIGH RISK: 130- 159 MG/DL 110-129 MG/DL HIGH RISK: >160 MG/DL >130 MG/DL *CHILDREN AND ADOLESCENTS REPRESENTS INDIVIDUALA AGED 2-19 YEARS EXCLUSIVE. MCH 29.3 pg 26.0-32.0 [facility] ([facility] NORMAL RANGES Age WBC RBC HGB HCT [...] HCT IS 5% LESS SOURCE FOR DATA: [place] 1800 OPERATION MANUAL( AUTOMATED BLOOD COUNTS AND [...] DESIRABLE: <130 MG/DL <110 MG/DL BORDERLINE-HIGH RISK: 130- 159 MG/DL 110-129 MG/DL HIGH RISK: >160 MG/DL >130 MG/DL *CHILDREN AND ADOLESCENTS REPRESENTS INDIVIDUALA AGED 2-19 YEARS EXCLUSIVE. MCHC 32.7 g/dL 31.0-36.0 [facility] ([facility] NORMAL RANGES Age WBC RBC HGB HCT [...] HCT IS 5% LESS SOURCE FOR DATA: [place] DYN 1800 OPERATION MANUAL( AUTOMATED BLOOD COUNTS [...] DESIRABLE: <130 MG/DL <110 MG/DL BORDERLINE-HIGH RISK: 130- 159 MG/DL 110-129 MG/DL HIGH RISK: >160 MG/DL >130 MG/DL *CHILDREN AND ADOLESCENTS REPRESENTS INDIVIDUALA AGED 2-19 YEARS EXCLUSIVE. PLT 135 10E3/uL 140-440 Below low normal [facility] ([facility] NORMAL RANGES Age WBC RBC HGB HCT [...] HCT IS 5% LESS SOURCE FOR DATA: [place] 1800 OPERATION MANUAL( AUTOMATED BLOOD COUNTS AND [...] DESIRABLE: <130 MG/DL <110 MG/DL BORDERLINE-HIGH RISK: 130- 159 MG/DL 110-129 MG/DL HIGH RISK: >160 MG/DL >130 MG/DL *CHILDREN AND ADOLESCENTS REPRESENTS INDIVIDUALA AGED 2-19 YEARS EXCLUSIVE. RDW-CV 12.9 % 11.5-14.5 [facility] ([facility] NORMAL RANGES Age WBC RBC HGB HCT [...] HCT IS 5% LESS SOURCE FOR DATA: [place] 1800 OPERATION MANUAL( AUTOMATED BLOOD COUNTS AND [...] DESIRABLE: <130 MG/DL <110 MG/DL BORDERLINE-HIGH RISK: 130- 159 MG/DL 110-129 MG/DL HIGH RISK: >160 MG/DL >130 MG/DL *CHILDREN AND ADOLESCENTS REPRESENTS INDIVIDUALA AGED 2-19 YEARS EXCLUSIVE. Lym% 25.6 % 10.0-58.5 [facility] ([facility] NORMAL RANGES Age WBC RBC HGB HCT [...] HCT IS 5% LESS SOURCE FOR DATA: [place] 1800 OPERATION MANUAL( AUTOMATED BLOOD COUNTS AND [...] DESIRABLE: <130 MG/DL <110 MG/DL BORDERLINE-HIGH RISK: 130- 159 MG/DL 110-129 MG/DL HIGH RISK: >160 MG/DL >130 MG/DL *CHILDREN AND ADOLESCENTS REPRESENTS INDIVIDUALA AGED 2-19 YEARS EXCLUSIVE. Neut% 66.1 % 37.0-92.0 [facility] ([facility] NORMAL RANGES Age WBC RBC HGB HCT [...] HCT IS 5% LESS SOURCE FOR DATA: [place] 1800 OPERATION MANUAL( AUTOMATED BLOOD COUNTS AND [...] DESIRABLE: <130 MG/DL <110 MG/DL BORDERLINE-HIGH RISK: 130- 159 MG/DL 110-129 MG/DL HIGH RISK: >160 MG/DL >130 MG/DL *CHILDREN AND ADOLESCENTS REPRESENTS INDIVIDUALA AGED 2-19 YEARS EXCLUSIVE. MXD% 8.3 % 0.1-24.0 [facility] ([facility] NORMAL RANGES Age WBC RBC HGB HCT [...] HCT IS 5% LESS SOURCE FOR DATA: [place] 1800 OPERATION MANUAL( AUTOMATED BLOOD COUNTS AND [...] DESIRABLE: <130 MG/DL <110 MG/DL BORDERLINE-HIGH RISK: 130- 159 MG/DL 110-129 MG/DL HIGH RISK: >160 MG/DL >130 MG/DL *CHILDREN AND ADOLESCENTS REPRESENTS INDIVIDUALA AGED 2-19 YEARS EXCLUSIVE. Lym# 1.2 10E3/uL 0.6-4.1 [facility] ([facility] NORMAL RANGES Age WBC RBC HGB HCT [...] HCT IS 5% LESS SOURCE FOR DATA: [place] 1800 OPERATION MANUAL( AUTOMATED BLOOD COUNTS AND [...] DESIRABLE: <130 MG/DL <110 MG/DL BORDERLINE-HIGH RISK: 130- 159 MG/DL 110-129 MG/DL HIGH RISK: >160 MG/DL >130 MG/DL *CHILDREN AND ADOLESCENTS REPRESENTS INDIVIDUALA AGED 2-19 YEARS EXCLUSIVE. MXD# 0.4 10E3/uL 0.0-1.8 [facility] ([facility] NORMAL RANGES Age WBC RBC HGB HCT [...] HCT IS 5% LESS SOURCE FOR DATA: [place] 1800 OPERATION MANUAL( AUTOMATED BLOOD COUNTS AND [...] DESIRABLE: <130 MG/DL <110 MG/DL BORDERLINE-HIGH RISK: 130- 159 MG/DL 110-129 MG/DL HIGH RISK: >160 MG/DL >130 MG/DL *CHILDREN AND ADOLESCENTS REPRESENTS INDIVIDUALA AGED 2-19 YEARS EXCLUSIVE. Neut# 3.1 % 2.0-7.8 [facility] ([facility] NORMAL RANGES Age WBC RBC HGB HCT [...] HCT IS 5% LESS SOURCE FOR DATA: [place] 1800 OPERATION MANUAL( AUTOMATED BLOOD COUNTS AND [...] DESIRABLE: <130 MG/DL <110 MG/DL BORDERLINE-HIGH RISK: 130- 159 MG/DL 110-129 MG/DL HIGH RISK: >160 MG/DL >130 MG/DL *CHILDREN AND ADOLESCENTS REPRESENTS INDIVIDUALA AGED 2-19 YEARS EXCLUSIVE. MPV 10.8 fL 9.0-13.0 [facility] ([facility] NORMAL RANGES Age WBC RBC HGB HCT [...] HCT IS 5% LESS SOURCE FOR DATA: [place] 1800 OPERATION MANUAL( AUTOMATED BLOOD COUNTS AND [...] DESIRABLE: <130 MG/DL <110 MG/DL BORDERLINE-HIGH RISK: 130- 159 MG/DL 110-129 MG/DL HIGH RISK: >160 MG/DL >130 MG/DL *CHILDREN AND ADOLESCENTS REPRESENTS INDIVIDUALA AGED 2-19 YEARS EXCLUSIVE. ID Date Data Source [id number] 01/18/2020 11:24:00 AM EST [facility] ([facility] Name Value Range Interpretation Code Description Data Michelle rce(s) Supporting Document(s) Chol 117 mg/dL 0-200 [facility] ([facility] NORMAL RANGES Age WBC RBC HGB HCT [...] HCT IS 5% LESS SOURCE FOR DATA: [place] 1800 OPERATION MANUAL( AUTOMATED BLOOD COUNTS AND [...] DESIRABLE: <130 MG/DL <110 MG/DL BORDERLINE-HIGH RISK: 130- 159 MG/DL 110-129 MG/DL HIGH RISK: >160 MG/DL >130 MG/DL *CHILDREN AND ADOLESCENTS REPRESENTS INDIVIDUALA AGED 2-19 YEARS EXCLUSIVE. Trig 52 mg/dL 35-200 [facility] NORMAL RANGES Age WBC RBC HGB HCT [...] HCT IS 5% LESS SOURCE FOR DATA: [employer] DYN 1800 OPERATION MANUAL( AUTOMATED BLOOD COUNTS [...] DESIRABLE: <130 MG/DL <110 MG/DL BORDERLINE-HIGH RISK: 130- 159 MG/DL 110-129 MG/DL HIGH RISK: >160 MG/DL >130 MG/DL *CHILDREN AND ADOLESCENTS REPRESENTS INDIVIDUALA AGED 2-19 YEARS EXCLUSIVE. Cholesterol in HDL [Mass/volume] in Serum or Plasma 53 mg/dL 35-55 [facility] ([facility] NORMAL RANGES Age WBC RBC HGB HCT [...] HCT IS 5% LESS SOURCE FOR DATA: [place] 1800 OPERATION MANUAL( AUTOMATED BLOOD COUNTS AND [...] DESIRABLE: <130 MG/DL <110 MG/DL BORDERLINE-HIGH RISK: 130- 159 MG/DL 110-129 MG/DL HIGH RISK: >160 MG/DL >130 MG/DL *CHILDREN AND ADOLESCENTS REPRESENTS INDIVIDUALA AGED 2-19 YEARS EXCLUSIVE. Cho/HDL Ratio 2.2 CALC [facility] ([facility] NORMAL RANGES Age WBC RBC HGB HCT [...] HCT IS 5% LESS SOURCE FOR DATA: [place] DYN 1800 OPERATION MANUAL( AUTOMATED BLOOD COUNTS [...] DESIRABLE: <130 MG/DL <110 MG/DL BORDERLINE-HIGH RISK: 130- 159 MG/DL 110-129 MG/DL HIGH RISK: >160 MG/DL >130 MG/DL *CHILDREN AND ADOLESCENTS REPRESENTS INDIVIDUALA AGED 2-19 YEARS EXCLUSIVE. LDL_C 54 Calc 75-129 Below low normal [facility] ( [facility] NORMAL RANGES Age WBC RBC HGB HCT [...] HCT IS 5% LESS SOURCE FOR DATA: [place] 1800 OPERATION MANUAL( AUTOMATED BLOOD COUNTS AND [...] DESIRABLE: <130 MG/DL <110 MG/DL BORDERLINE-HIGH RISK: 130- 159 MG/DL 110-129 MG/DL HIGH RISK: >160 MG/DL >130 MG/DL *CHILDREN AND ADOLESCENTS REPRESENTS INDIVIDUALA AGED 2-19 YEARS EXCLUSIVE. ID Date Data Source [id number] 01/18/2020 11:24:00 AM EST [facility] ([facility] Name Value Range Interpretation Code Description Data Michelle rce(s) Supporting Document(s) Glu 101 mg/dL 70-110 [facility] ([facility] NORMAL RANGES Age WBC RBC HGB HCT [...] HCT IS 5% LESS SOURCE FOR DATA: [place] 1800 OPERATION MANUAL( AUTOMATED BLOOD COUNTS AND [...] DESIRABLE: <130 MG/DL <110 MG/DL BORDERLINE-HIGH RISK: 130- 159 MG/DL 110-129 MG/DL HIGH RISK: >160 MG/DL >130 MG/DL *CHILDREN AND ADOLESCENTS REPRESENTS INDIVIDUALA AGED 2-19 YEARS EXCLUSIVE. Creat 1.0 mg/dL 0.7-1.2 [facility] ([facility] NORMAL RANGES Age WBC RBC HGB HCT [...] HCT IS 5% LESS SOURCE FOR DATA: [place] 1800 OPERATION MANUAL( AUTOMATED BLOOD COUNTS AND [...] DESIRABLE: <130 MG/DL <110 MG/DL BORDERLINE-HIGH RISK: 130- 159 MG/DL 110-129 MG/DL HIGH RISK: >160 MG/DL >130 MG/DL *CHILDREN AND ADOLESCENTS REPRESENTS INDIVIDUALA AGED 2-19 YEARS EXCLUSIVE. BUN 22 mg/dL 8- [facility] ([facility] NORMAL RANGES Age WBC RBC HGB HCT [...] HCT IS 5% LESS SOURCE FOR DATA: [place] 1800 OPERATION MANUAL( AUTOMATED BLOOD COUNTS AND [...] DESIRABLE: <130 MG/DL <110 MG/DL BORDERLINE-HIGH RISK: 130- 159 MG/DL 110-129 MG/DL HIGH RISK: >160 MG/DL >130 MG/DL *CHILDREN AND ADOLESCENTS REPRESENTS INDIVIDUALA AGED 2-19 YEARS EXCLUSIVE. BUN/Creatinine Ratio 22.1 CALC [facility] ([facility] NORMAL RANGES Age WBC RBC HGB HCT [...] HCT IS 5% LESS SOURCE FOR DATA: [place] 1800 OPERATION MANUAL( AUTOMATED BLOOD COUNTS AND [...] DESIRABLE: <130 MG/DL <110 MG/DL BORDERLINE-HIGH RISK: 130- 159 MG/DL 110-129 MG/DL HIGH RISK: >160 MG/DL >130 MG/DL *CHILDREN AND ADOLESCENTS REPRESENTS INDIVIDUALA AGED 2-19 YEARS EXCLUSIVE. Na 136 mmol/L 136-145 [facility] ([facility] NORMAL RANGES Age WBC RBC HGB HCT [...] HCT IS 5% LESS SOURCE FOR DATA: [place] 1800 OPERATION MANUAL( AUTOMATED BLOOD COUNTS AND [...] DESIRABLE: <130 MG/DL <110 MG/DL BORDERLINE-HIGH RISK: 130- 159 MG/DL 110-129 MG/DL HIGH RISK: >160 MG/DL >130 MG/DL *CHILDREN AND ADOLESCENTS REPRESENTS INDIVIDUALA AGED 2-19 YEARS EXCLUSIVE. K 4.1 mmol/L 3.5-5.1 [facility] ([facility] NORMAL RANGES Age WBC RBC HGB HCT [...] HCT IS 5% LESS SOURCE FOR DATA: [place] 1800 OPERATION MANUAL( AUTOMATED BLOOD COUNTS AND [...] DESIRABLE: <130 MG/DL <110 MG/DL BORDERLINE-HIGH RISK: 130- 159 MG/DL 110-129 MG/DL HIGH RISK: >160 MG/DL >130 MG/DL *CHILDREN AND ADOLESCENTS REPRESENTS INDIVIDUALA AGED 2-19 YEARS EXCLUSIVE. CL 102.8 mmol/L 98.0-107.0 [facility] ([facility] NORMAL RANGES Age WBC RBC HGB HCT [...] HCT IS 5% LESS SOURCE FOR DATA: [place] 1800 OPERATION MANUAL( AUTOMATED BLOOD COUNTS AND [...] DESIRABLE: <130 MG/DL <110 MG/DL BORDERLINE-HIGH RISK: 130- 159 MG/DL 110-129 MG/DL HIGH RISK: >160 MG/DL >130 MG/DL *CHILDREN AND ADOLESCENTS REPRESENTS INDIVIDUALA AGED 2-19 YEARS EXCLUSIVE. Co2 24.4 mmol/L 22.0-29.0 [facility] ([facility] NORMAL RANGES Age WBC RBC HGB HCT [...] HCT IS 5% LESS SOURCE FOR DATA: [place] 1800 OPERATION MANUAL( AUTOMATED BLOOD COUNTS AND [...] DESIRABLE: <130 MG/DL <110 MG/DL BORDERLINE-HIGH RISK: 130- 159 MG/DL 110-129 MG/DL HIGH RISK: >160 MG/DL >130 MG/DL *CHILDREN AND ADOLESCENTS REPRESENTS INDIVIDUALA AGED 2-19 YEARS EXCLUSIVE. CA 8.7 mg/dL 8.6-10.2 [facility] ([facility] NORMAL RANGES Age WBC RBC HGB HCT [...] HCT IS 5% LESS SOURCE FOR DATA: [place] 1800 OPERATION MANUAL( AUTOMATED BLOOD COUNTS AND [...] DESIRABLE: <130 MG/DL <110 MG/DL BORDERLINE-HIGH RISK: 130- 159 MG/DL 110-129 MG/DL HIGH RISK: >160 MG/DL >130 MG/DL *CHILDREN AND ADOLESCENTS REPRESENTS INDIVIDUALA AGED 2-19 YEARS EXCLUSIVE. TP 5.7 g/dL 6.6-8.7 Below low normal [facility] ( [facility] NORMAL RANGES Age WBC RBC HGB HCT [...] HCT IS 5% LESS SOURCE FOR DATA: [place] 1800 OPERATION MANUAL( AUTOMATED BLOOD COUNTS AND [...] DESIRABLE: <130 MG/DL <110 MG/DL BORDERLINE-HIGH RISK: 130- 159 MG/DL 110-129 MG/DL HIGH RISK: >160 MG/DL >130 MG/DL *CHILDREN AND ADOLESCENTS REPRESENTS INDIVIDUALA AGED 2-19 YEARS EXCLUSIVE. Alb 4.0 g/dL 3.5-5.2 [facility] NORMAL RANGES Age WBC RBC HGB HCT [...] HCT IS 5% LESS SOURCE FOR DATA: [place] DYN 1800 OPERATION MANUAL( AUTOMATED BLOOD COUNTS [...] DESIRABLE: <130 MG/DL <110 MG/DL BORDERLINE-HIGH RISK: 130- 159 MG/DL 110-129 MG/DL HIGH RISK: >160 MG/DL >130 MG/DL *CHILDREN AND ADOLESCENTS REPRESENTS INDIVIDUALA AGED 2-19 YEARS EXCLUSIVE. A/G Ratio 2.3 CALC [facility] ([facility] NORMAL RANGES Age WBC RBC HGB HCT [...] HCT IS 5% LESS SOURCE FOR DATA: [place] 1800 OPERATION MANUAL( AUTOMATED BLOOD COUNTS AND [...] DESIRABLE: <130 MG/DL <110 MG/DL BORDERLINE-HIGH RISK: 130- 159 MG/DL 110-129 MG/DL HIGH RISK: >160 MG/DL >130 MG/DL *CHILDREN AND ADOLESCENTS REPRESENTS INDIVIDUALA AGED 2-19 YEARS EXCLUSIVE. Globulin 1.7 CALC [facility] ([facility] NORMAL RANGES Age WBC RBC HGB HCT [...] HCT IS 5% LESS SOURCE FOR DATA: [place] 1800 OPERATION MANUAL( AUTOMATED BLOOD COUNTS AND [...] DESIRABLE: <130 MG/DL <110 MG/DL BORDERLINE-HIGH RISK: 130- 159 MG/DL 110-129 MG/DL HIGH RISK: >160 MG/DL >130 MG/DL *CHILDREN AND ADOLESCENTS REPRESENTS INDIVIDUALA AGED 2-19 YEARS EXCLUSIVE. Alt (SGPT) 14 U/L 0-41 [facility] ([facility] NORMAL RANGES Age WBC RBC HGB HCT [...] HCT IS 5% LESS SOURCE FOR DATA: [place] 1800 OPERATION MANUAL( AUTOMATED BLOOD COUNTS AND [...] DESIRABLE: <130 MG/DL <110 MG/DL BORDERLINE-HIGH RISK: 130- 159 MG/DL 110-129 MG/DL HIGH RISK: >160 MG/DL >130 MG/DL *CHILDREN AND ADOLESCENTS REPRESENTS INDIVIDUALA AGED 2-19 YEARS EXCLUSIVE. Alp 71.9 U/L 40-129 [facility] ([facility] NORMAL RANGES Age WBC RBC HGB HCT [...] HCT IS 5% LESS SOURCE FOR DATA: [place] 1800 OPERATION MANUAL( AUTOMATED BLOOD COUNTS AND [...] DESIRABLE: <130 MG/DL <110 MG/DL BORDERLINE-HIGH RISK: 130- 159 MG/DL 110-129 MG/DL HIGH RISK: >160 MG/DL >130 MG/DL *CHILDREN AND ADOLESCENTS REPRESENTS INDIVIDUALA AGED 2-19 YEARS EXCLUSIVE. Tbili 0.94 mg/dL 0.0-1.2 [facility] ([facility] NORMAL RANGES Age WBC RBC HGB HCT [...] HCT IS 5% LESS SOURCE FOR DATA: [place] 1800 OPERATION MANUAL( AUTOMATED BLOOD COUNTS AND [...] DESIRABLE: <130 MG/DL <110 MG/DL BORDERLINE-HIGH RISK: 130- 159 MG/DL 110-129 MG/DL HIGH RISK: >160 MG/DL >130 MG/DL *CHILDREN AND ADOLESCENTS REPRESENTS INDIVIDUALA AGED 2-19 YEARS EXCLUSIVE. Ast (Sgot) 24 U/L 0-40 [facility] ([facility] NORMAL RANGES Age WBC RBC HGB HCT [...] HCT IS 5% LESS SOURCE FOR DATA: Algol[facility] DYN 1800 OPERATION MANUAL( AUTOMATED BLOOD COUNTS [...] DESIRABLE: <130 MG/DL <110 MG/DL BORDERLINE-HIGH RISK: 130- 159 MG/DL 110-129 MG/DL HIGH RISK: >160 MG/DL >130 MG/DL *CHILDREN AND ADOLESCENTS REPRESENTS INDIVIDUALA AGED 2-19 YEARS EXCLUSIVE. Osmolality-Calculated 276.2 CALC [facility] ([facility] NORMAL RANGES Age WBC RBC HGB HCT [...] HCT IS 5% LESS SOURCE FOR DATA: [place] 1800 OPERATION MANUAL( AUTOMATED BLOOD COUNTS AND [...] DESIRABLE: <130 MG/DL <110 MG/DL BORDERLINE-HIGH RISK: 130- 159 MG/DL 110-129 MG/DL HIGH RISK: >160 MG/DL >130 MG/DL *CHILDREN AND ADOLESCENTS REPRESENTS INDIVIDUALA AGED 2-19 YEARS EXCLUSIVE. eGFR 79 # [facility] ( [facility] NORMAL RANGES Age WBC RBC HGB HCT [...] HCT IS 5% LESS SOURCE FOR DATA: Algolux DYN 1800 OPERATION MANUAL( AUTOMATED BLOOD COUNTS [...] DESIRABLE: <130 MG/DL <110 MG/DL BORDERLINE-HIGH RISK: 130- 159 MG/DL 110-129 MG/DL HIGH RISK: >160 MG/DL >130 MG/DL *CHILDREN AND ADOLESCENTS REPRESENTS INDIVIDUALA AGED 2-19 YEARS EXCLUSIVE. Anion Gap 13 mmol/L [facility] NORMAL RANGES Age WBC RBC HGB HCT [...] HCT IS 5% LESS SOURCE FOR DATA: [facility]gol[facility] DYN 1800 OPERATION MANUAL( AUTOMATED BLOOD COUNTS [...] DESIRABLE: <130 MG/DL <110 MG/DL BORDERLINE-HIGH RISK: 130- 159 MG/DL 110-129 MG/DL HIGH RISK: >160 MG/DL >130 MG/DL *CHILDREN AND ADOLESCENTS REPRESENTS INDIVIDUALA AGED 2-19 YEARS EXCLUSIVE. eGFR Non-Afr. Ghanaian 68 # [facility] ([facility] NORMAL RANGES Age WBC RBC HGB HCT [...] HCT IS 5% LESS SOURCE FOR DATA: [place] 1800 OPERATION MANUAL( AUTOMATED BLOOD COUNTS AND [...] DESIRABLE: <130 MG/DL <110 MG/DL BORDERLINE-HIGH RISK: 130- 159 MG/DL 110-129 MG/DL HIGH RISK: >160 MG/DL >130 MG/DL *CHILDREN AND ADOLESCENTS REPRESENTS INDIVIDUALA AGED 2-19 YEARS EXCLUSIVE. ID Date Data Source [id number] 06/08/2019 09:08:00 AM [facility] ([facility] Name Value Range Interpretation Code Description Data Michelle rce(s) Supporting Document(s) Chol 109 mg/dL 0-200 [facility] ([facility] CLASSIFICATION CHOLESTEROL FO R ADULTS CHILDREN/ADOLESCENTS* DESIRABLE: <200 MG/DL <170 MG/DL BORDER-LINE HIGH RISK: 200-239 MG/DL 170-199 MG/DL HIGH RISK: >240 MG/DL >200 MG/DL CLASS. FOR PRIMARY LDL CHOL PREVENTION: LDL CHOL-CHILD/ADOLESCENTS* DESIRABLE: <130 MG/DL <110 MG/DL BORDERLINE-HIGH RISK: 130-159 MG/DL 110-129 MG/DL HIGH RISK: >160 MG/DL >130 MG/DL *CHILDREN AND ADOLESCENTS REPRESENTS INDIVIDUALA AGED 2-19 YEARS EXCLUSIVE. CHRONIC KIDNEY DISEASE STAGING PER NKF: MALE [...] mL/min Normal 80 and above >32 mL/min Normal Trig 71 mg/dL 35-200 [facility] ([facility] CLASSIFICATION CHOLESTEROL FO R ADULTS CHILDREN/ADOLESCENTS* DESIRABLE: <200 MG/DL <170 MG/DL BORDER-LINE HIGH RISK: 200-239 MG/DL 170-199 MG/DL HIGH RISK: >240 MG/DL >200 MG/DL CLASS. FOR PRIMARY LDL CHOL PREVENTION: LDL CHOL-CHILD/ADOLESCENTS* DESIRABLE: <130 MG/DL <110 MG/DL BORDERLINE-HIGH RISK: 130-159 MG/DL 110-129 MG/DL HIGH RISK: >160 MG/DL >130 MG/DL *CHILDREN AND ADOLESCENTS REPRESENTS INDIVIDUALA AGED 2-19 YEARS EXCLUSIVE. CHRONIC KIDNEY DISEASE STAGING PER NKF: MALE [...] mL/min Normal 80 and above >32 mL/min Normal LDL_C 52 Calc 75-129 Below low normal [facility] ( [facility] CLASSIFICATION CHOLESTEROL FO R ADULTS CHILDREN/ADOLESCENTS* DESIRABLE: <200 MG/DL <170 MG/DL BORDER-LINE HIGH RISK: 200-239 MG/DL 170-199 MG/DL HIGH RISK: >240 MG/DL >200 MG/DL CLASS. FOR PRIMARY LDL CHOL PREVENTION: LDL CHOL-CHILD/ADOLESCENTS* DESIRABLE: <130 MG/DL <110 MG/DL BORDERLINE-HIGH RISK: 130-159 MG/DL 110-129 MG/DL HIGH RISK: >160 MG/DL >130 MG/DL *CHILDREN AND ADOLESCENTS REPRESENTS INDIVIDUALA AGED 2-19 YEARS EXCLUSIVE. CHRONIC KIDNEY DISEASE STAGING PER NKF: MALE [...] mL/min Normal 80 and above >32 mL/min Normal Cholesterol in HDL [Mass/volume] in Serum or Plasma 42 mg/dL 35-55 [facility] ([facility] CLASSIFICATION CHOLESTEROL FO R ADULTS CHILDREN/ADOLESCENTS* DESIRABLE: <200 MG/DL <170 MG/DL BORDER-LINE HIGH RISK: 200-239 MG/DL 170-199 MG/DL HIGH RISK: >240 MG/DL >200 MG/DL CLASS. FOR PRIMARY LDL CHOL PREVENTION: LDL CHOL-CHILD/ADOLESCENTS* DESIRABLE: <130 MG/DL <110 MG/DL BORDERLINE-HIGH RISK: 130-159 MG/DL 110-129 MG/DL HIGH RISK: >160 MG/DL >130 MG/DL *CHILDREN AND ADOLESCENTS REPRESENTS INDIVIDUALA AGED 2-19 YEARS EXCLUSIVE. CHRONIC KIDNEY DISEASE STAGING PER NKF: MALE [...] mL/min Normal 80 and above >32 mL/min Normal Cho/HDL Ratio 2.6 CALC [facility] ([facility] CLASSIFICATION CHOLESTEROL FO R ADULTS CHILDREN/ADOLESCENTS* DESIRABLE: <200 MG/DL <170 MG/DL BORDER-LINE HIGH RISK: 200-239 MG/DL 170-199 MG/DL HIGH RISK: >240 MG/DL >200 MG/DL CLASS. FOR PRIMARY LDL CHOL PREVENTION: LDL CHOL-CHILD/ADOLESCENTS* DESIRABLE: <130 MG/DL <110 MG/DL BORDERLINE-HIGH RISK: 130-159 MG/DL 110-129 MG/DL HIGH RISK: >160 MG/DL >130 MG/DL *CHILDREN AND ADOLESCENTS REPRESENTS INDIVIDUALA AGED 2-19 YEARS EXCLUSIVE. CHRONIC KIDNEY DISEASE STAGING PER NKF: MALE [...] mL/min Normal 80 and above >32 mL/min Normal ID Date Data Source [id number] 06/08/2019 09:08:00 AM EDT [facility] ([facility] Name Value Range Interpretation Code Description Data Michelle rce(s) Supporting Document(s) Glu 96 mg/dL 70-110 [facility] ([facility] CLASSIFICATION CHOLESTEROL FO R ADULTS CHILDREN/ADOLESCENTS* DESIRABLE: <200 MG/DL <170 MG/DL BORDER-LINE HIGH RISK: 200-239 MG/DL 170-199 MG/DL HIGH RISK: >240 MG/DL >200 MG/DL CLASS. FOR PRIMARY LDL CHOL PREVENTION: LDL CHOL-CHILD/ADOLESCENTS* DESIRABLE: <130 MG/DL <110 MG/DL BORDERLINE-HIGH RISK: 130-159 MG/DL 110-129 MG/DL HIGH RISK: >160 MG/DL >130 MG/DL *CHILDREN AND ADOLESCENTS REPRESENTS INDIVIDUALA AGED 2-19 YEARS EXCLUSIVE. CHRONIC KIDNEY DISEASE STAGING PER NKF: MALE [...] mL/min Normal 80 and above >32 mL/min Normal BUN 33 mg/dL 8-23 Above high normal [facility] ([facility] CLASSIFICATION CHOLESTEROL FO R ADULTS CHILDREN/ADOLESCENTS* DESIRABLE: <200 MG/DL <170 MG/DL BORDER-LINE HIGH RISK: 200-239 MG/DL 170-199 MG/DL HIGH RISK: >240 MG/DL >200 MG/DL CLASS. FOR PRIMARY LDL CHOL PREVENTION: LDL CHOL-CHILD/ADOLESCENTS* DESIRABLE: <130 MG/DL <110 MG/DL BORDERLINE-HIGH RISK: 130-159 MG/DL 110-129 MG/DL HIGH RISK: >160 MG/DL >130 MG/DL *CHILDREN AND ADOLESCENTS REPRESENTS INDIVIDUALA AGED 2-19 YEARS EXCLUSIVE. CHRONIC KIDNEY DISEASE STAGING PER NKF: MALE [...] mL/min Normal 80 and above >32 mL/min Normal Na 141 mmol/L 136-145 [facility] ([facility] CLASSIFICATION CHOLESTEROL FO R ADULTS CHILDREN/ADOLESCENTS* DESIRABLE: <200 MG/DL <170 MG/DL BORDER-LINE HIGH RISK: 200-239 MG/DL 170-199 MG/DL HIGH RISK: >240 MG/DL >200 MG/DL CLASS. FOR PRIMARY LDL CHOL PREVENTION: LDL CHOL-CHILD/ADOLESCENTS* DESIRABLE: <130 MG/DL <110 MG/DL BORDERLINE-HIGH RISK: 130-159 MG/DL 110-129 MG/DL HIGH RISK: >160 MG/DL >130 MG/DL *CHILDREN AND ADOLESCENTS REPRESENTS INDIVIDUALA AGED 2-19 YEARS EXCLUSIVE. CHRONIC KIDNEY DISEASE STAGING PER NKF: MALE [...] mL/min Normal 80 and above >32 mL/min Normal Creat 1.2 mg/dL 0.7-1.2 [facility] ([facility] CLASSIFICATION CHOLESTEROL FO R ADULTS CHILDREN/ADOLESCENTS* DESIRABLE: <200 MG/DL <170 MG/DL BORDER-LINE HIGH RISK: 200-239 MG/DL 170-199 MG/DL HIGH RISK: >240 MG/DL >200 MG/DL CLASS. FOR PRIMARY LDL CHOL PREVENTION: LDL CHOL-CHILD/ADOLESCENTS* DESIRABLE: <130 MG/DL <110 MG/DL BORDERLINE-HIGH RISK: 130-159 MG/DL 110-129 MG/DL HIGH RISK: >160 MG/DL >130 MG/DL *CHILDREN AND ADOLESCENTS REPRESENTS INDIVIDUALA AGED 2-19 YEARS EXCLUSIVE. CHRONIC KIDNEY DISEASE STAGING PER NKF: MALE [...] mL/min Normal 80 and above >32 mL/min Normal BUN/Creatinine Ratio 27.5 CALC [facility] ([facility] CLASSIFICATION CHOLESTEROL FO R ADULTS CHILDREN/ADOLESCENTS* DESIRABLE: <200 MG/DL <170 MG/DL BORDER-LINE HIGH RISK: 200-239 MG/DL 170-199 MG/DL HIGH RISK: >240 MG/DL >200 MG/DL CLASS. FOR PRIMARY LDL CHOL PREVENTION: LDL CHOL-CHILD/ADOLESCENTS* DESIRABLE: <130 MG/DL <110 MG/DL BORDERLINE-HIGH RISK: 130-159 MG/DL 110-129 MG/DL HIGH RISK: >160 MG/DL >130 MG/DL *CHILDREN AND ADOLESCENTS REPRESENTS INDIVIDUALA AGED 2-19 YEARS EXCLUSIVE. CHRONIC KIDNEY DISEASE STAGING PER NKF: MALE [...] mL/min Normal 80 and above >32 mL/min Normal K 4.1 mmol/L 3.5-5.1 [facility] ([facility] CLASSIFICATION CHOLESTEROL FO R ADULTS CHILDREN/ADOLESCENTS* DESIRABLE: <200 MG/DL <170 MG/DL BORDER-LINE HIGH RISK: 200-239 MG/DL 170-199 MG/DL HIGH RISK: >240 MG/DL >200 MG/DL CLASS. FOR PRIMARY LDL CHOL PREVENTION: LDL CHOL-CHILD/ADOLESCENTS* DESIRABLE: <130 MG/DL <110 MG/DL BORDERLINE-HIGH RISK: 130-159 MG/DL 110-129 MG/DL HIGH RISK: >160 MG/DL >130 MG/DL *CHILDREN AND ADOLESCENTS REPRESENTS INDIVIDUALA AGED 2-19 YEARS EXCLUSIVE. CHRONIC KIDNEY DISEASE STAGING PER NKF: MALE [...] mL/min Normal 80 and above >32 mL/min Normal Co2 23.8 mmol/L 22.0-29.0 [facility] ([facility] CLASSIFICATION CHOLESTEROL FO R ADULTS CHILDREN/ADOLESCENTS* DESIRABLE: <200 MG/DL <170 MG/DL BORDER-LINE HIGH RISK: 200-239 MG/DL 170-199 MG/DL HIGH RISK: >240 MG/DL >200 MG/DL CLASS. FOR PRIMARY LDL CHOL PREVENTION: LDL CHOL-CHILD/ADOLESCENTS* DESIRABLE: <130 MG/DL <110 MG/DL BORDERLINE-HIGH RISK: 130-159 MG/DL 110-129 MG/DL HIGH RISK: >160 MG/DL >130 MG/DL *CHILDREN AND ADOLESCENTS REPRESENTS INDIVIDUALA AGED 2-19 YEARS EXCLUSIVE. CHRONIC KIDNEY DISEASE STAGING PER NKF: MALE [...] mL/min Normal 80 and above >32 mL/min Normal CL 103.8 mmol/L 98.0-107.0 [facility] CLASSIFICATION CHOLESTEROL FO R ADULTS CHILDREN/ADOLESCENTS* DESIRABLE: <200 MG/DL <170 MG/DL BORDER-LINE HIGH RISK: 200-239 MG/DL 170-199 MG/DL HIGH RISK: >240 MG/DL >200 MG/DL CLASS. FOR PRIMARY LDL CHOL PREVENTION: LDL CHOL-CHILD/ADOLESCENTS* DESIRABLE: <130 MG/DL <110 MG/DL BORDERLINE-HIGH RISK: 130-159 MG/DL 110-129 MG/DL HIGH RISK: >160 MG/DL >130 MG/DL *CHILDREN AND ADOLESCENTS REPRESENTS INDIVIDUALA AGED 2-19 YEARS EXCLUSIVE. CHRONIC KIDNEY DISEASE STAGING PER NKF: MALE [...] mL/min Normal 80 and above >32 mL/min Normal Alb 4.2 g/dL 3.5-5.2 [facility] ([facility] CLASSIFICATION CHOLESTEROL FO R ADULTS CHILDREN/ADOLESCENTS* DESIRABLE: <200 MG/DL <170 MG/DL BORDER-LINE HIGH RISK: 200-239 MG/DL 170-199 MG/DL HIGH RISK: >240 MG/DL >200 MG/DL CLASS. FOR PRIMARY LDL CHOL PREVENTION: LDL CHOL-CHILD/ADOLESCENTS* DESIRABLE: <130 MG/DL <110 MG/DL BORDERLINE-HIGH RISK: 130-159 MG/DL 110-129 MG/DL HIGH RISK: >160 MG/DL >130 MG/DL *CHILDREN AND ADOLESCENTS REPRESENTS INDIVIDUALA AGED 2-19 YEARS EXCLUSIVE. CHRONIC KIDNEY DISEASE STAGING PER NKF: MALE [...] mL/min Normal 80 and above >32 mL/min Normal CA 9.1 mg/dL 8.6-10.2 [facility] ([facility] CLASSIFICATION CHOLESTEROL FO R ADULTS CHILDREN/ADOLESCENTS* DESIRABLE: <200 MG/DL <170 MG/DL BORDER-LINE HIGH RISK: 200-239 MG/DL 170-199 MG/DL HIGH RISK: >240 MG/DL >200 MG/DL CLASS. FOR PRIMARY LDL CHOL PREVENTION: LDL CHOL-CHILD/ADOLESCENTS* DESIRABLE: <130 MG/DL <110 MG/DL BORDERLINE-HIGH RISK: 130-159 MG/DL 110-129 MG/DL HIGH RISK: >160 MG/DL >130 MG/DL *CHILDREN AND ADOLESCENTS REPRESENTS INDIVIDUALA AGED 2-19 YEARS EXCLUSIVE. CHRONIC KIDNEY DISEASE STAGING PER NKF: MALE [...] mL/min Normal 80 and above >32 mL/min Normal TP 6.0 g/dL 6.6-8.7 Below low normal [facility] ( [facility] CLASSIFICATION CHOLESTEROL FO R ADULTS CHILDREN/ADOLESCENTS* DESIRABLE: <200 MG/DL <170 MG/DL BORDER-LINE HIGH RISK: 200-239 MG/DL 170-199 MG/DL HIGH RISK: >240 MG/DL >200 MG/DL CLASS. FOR PRIMARY LDL CHOL PREVENTION: LDL CHOL-CHILD/ADOLESCENTS* DESIRABLE: <130 MG/DL <110 MG/DL BORDERLINE-HIGH RISK: 130-159 MG/DL 110-129 MG/DL HIGH RISK: >160 MG/DL >130 MG/DL *CHILDREN AND ADOLESCENTS REPRESENTS INDIVIDUALA AGED 2-19 YEARS EXCLUSIVE. CHRONIC KIDNEY DISEASE STAGING PER NKF: MALE [...] mL/min Normal 80 and above >32 mL/min Normal A/G Ratio 2.3 CALC [facility] ([facility] CLASSIFICATION CHOLESTEROL FO R ADULTS CHILDREN/ADOLESCENTS* DESIRABLE: <200 MG/DL <170 MG/DL BORDER-LINE HIGH RISK: 200-239 MG/DL 170-199 MG/DL HIGH RISK: >240 MG/DL >200 MG/DL CLASS. FOR PRIMARY LDL CHOL PREVENTION: LDL CHOL-CHILD/ADOLESCENTS* DESIRABLE: <130 MG/DL <110 MG/DL BORDERLINE-HIGH RISK: 130-159 MG/DL 110-129 MG/DL HIGH RISK: >160 MG/DL >130 MG/DL *CHILDREN AND ADOLESCENTS REPRESENTS INDIVIDUALA AGED 2-19 YEARS EXCLUSIVE. CHRONIC KIDNEY DISEASE STAGING PER NKF: MALE [...] mL/min Normal 80 and above >32 mL/min Normal Globulin 1.8 CALC [facility] ([facility] CLASSIFICATION CHOLESTEROL FO R ADULTS CHILDREN/ADOLESCENTS* DESIRABLE: <200 MG/DL <170 MG/DL BORDER-LINE HIGH RISK: 200-239 MG/DL 170-199 MG/DL HIGH RISK: >240 MG/DL >200 MG/DL CLASS. FOR PRIMARY LDL CHOL PREVENTION: LDL CHOL-CHILD/ADOLESCENTS* DESIRABLE: <130 MG/DL <110 MG/DL BORDERLINE-HIGH RISK: 130-159 MG/DL 110-129 MG/DL HIGH RISK: >160 MG/DL >130 MG/DL *CHILDREN AND ADOLESCENTS REPRESENTS INDIVIDUALA AGED 2-19 YEARS EXCLUSIVE. CHRONIC KIDNEY DISEASE STAGING PER NKF: MALE [...] mL/min Normal 80 and above >32 mL/min Normal Alp 73.5 U/L 40-129 [facility] ([facility] CLASSIFICATION CHOLESTEROL FO R ADULTS CHILDREN/ADOLESCENTS* DESIRABLE: <200 MG/DL <170 MG/DL BORDER-LINE HIGH RISK: 200-239 MG/DL 170-199 MG/DL HIGH RISK: >240 MG/DL >200 MG/DL CLASS. FOR PRIMARY LDL CHOL PREVENTION: LDL CHOL-CHILD/ADOLESCENTS* DESIRABLE: <130 MG/DL <110 MG/DL BORDERLINE-HIGH RISK: 130-159 MG/DL 110-129 MG/DL HIGH RISK: >160 MG/DL >130 MG/DL *CHILDREN AND ADOLESCENTS REPRESENTS INDIVIDUALA AGED 2-19 YEARS EXCLUSIVE. CHRONIC KIDNEY DISEASE STAGING PER NKF: MALE [...] mL/min Normal 80 and above >32 mL/min Normal Ast (Sgot) 19 U/L 0-40 [facility] ([facility] CLASSIFICATION CHOLESTEROL FO R ADULTS CHILDREN/ADOLESCENTS* DESIRABLE: <200 MG/DL <170 MG/DL BORDER-LINE HIGH RISK: 200-239 MG/DL 170-199 MG/DL HIGH RISK: >240 MG/DL >200 MG/DL CLASS. FOR PRIMARY LDL CHOL PREVENTION: LDL CHOL-CHILD/ADOLESCENTS* DESIRABLE: <130 MG/DL <110 MG/DL BORDERLINE-HIGH RISK: 130-159 MG/DL 110-129 MG/DL HIGH RISK: >160 MG/DL >130 MG/DL *CHILDREN AND ADOLESCENTS REPRESENTS INDIVIDUALA AGED 2-19 YEARS EXCLUSIVE. CHRONIC KIDNEY DISEASE STAGING PER NKF: MALE [...] mL/min Normal 80 and above >32 mL/min Normal Tbili 0.67 mg/dL 0.0-1.2 [facility] CLASSIFICATION CHOLESTEROL FO R ADULTS CHILDREN/ADOLESCENTS* DESIRABLE: <200 MG/DL <170 MG/DL BORDER-LINE HIGH RISK: 200-239 MG/DL 170-199 MG/DL HIGH RISK: >240 MG/DL >200 MG/DL CLASS. FOR PRIMARY LDL CHOL PREVENTION: LDL CHOL-CHILD/ADOLESCENTS* DESIRABLE: <130 MG/DL <110 MG/DL BORDERLINE-HIGH RISK: 130-159 MG/DL 110-129 MG/DL HIGH RISK: >160 MG/DL >130 MG/DL *CHILDREN AND ADOLESCENTS REPRESENTS INDIVIDUALA AGED 2-19 YEARS EXCLUSIVE. CHRONIC KIDNEY DISEASE STAGING PER NKF: MALE [...] mL/min Normal 80 and above >32 mL/min Normal Alt (SGPT) 12 U/L 0-41 [facility] ([facility] CLASSIFICATION CHOLESTEROL FO R ADULTS CHILDREN/ADOLESCENTS* DESIRABLE: <200 MG/DL <170 MG/DL BORDER-LINE HIGH RISK: 200-239 MG/DL 170-199 MG/DL HIGH RISK: >240 MG/DL >200 MG/DL CLASS. FOR PRIMARY LDL CHOL PREVENTION: LDL CHOL-CHILD/ADOLESCENTS* DESIRABLE: <130 MG/DL <110 MG/DL BORDERLINE-HIGH RISK: 130-159 MG/DL 110-129 MG/DL HIGH RISK: >160 MG/DL >130 MG/DL *CHILDREN AND ADOLESCENTS REPRESENTS INDIVIDUALA AGED 2-19 YEARS EXCLUSIVE. CHRONIC KIDNEY DISEASE STAGING PER NKF: MALE [...] mL/min Normal 80 and above >32 mL/min Normal eGFR 63 # [facility] ( [facility] CLASSIFICATION CHOLESTEROL FO R ADULTS CHILDREN/ADOLESCENTS* DESIRABLE: <200 MG/DL <170 MG/DL BORDER-LINE HIGH RISK: 200-239 MG/DL 170-199 MG/DL HIGH RISK: >240 MG/DL >200 MG/DL CLASS. FOR PRIMARY LDL CHOL PREVENTION: LDL CHOL-CHILD/ADOLESCENTS* DESIRABLE: <130 MG/DL <110 MG/DL BORDERLINE-HIGH RISK: 130-159 MG/DL 110-129 MG/DL HIGH RISK: >160 MG/DL >130 MG/DL *CHILDREN AND ADOLESCENTS REPRESENTS INDIVIDUALA AGED 2-19 YEARS EXCLUSIVE. CHRONIC KIDNEY DISEASE STAGING PER NKF: MALE [...] mL/min Normal 80 and above >32 mL/min Normal Anion Gap 17 mmol/L [facility] CLASSIFICATION CHOLESTEROL FO R ADULTS CHILDREN/ADOLESCENTS* DESIRABLE: <200 MG/DL <170 MG/DL BORDER-LINE HIGH RISK: 200-239 MG/DL 170-199 MG/DL HIGH RISK: >240 MG/DL >200 MG/DL CLASS. FOR PRIMARY LDL CHOL PREVENTION: LDL CHOL-CHILD/ADOLESCENTS* DESIRABLE: <130 MG/DL <110 MG/DL BORDERLINE-HIGH RISK: 130-159 MG/DL 110-129 MG/DL HIGH RISK: >160 MG/DL >130 MG/DL *CHILDREN AND ADOLESCENTS REPRESENTS INDIVIDUALA AGED 2-19 YEARS EXCLUSIVE. CHRONIC KIDNEY DISEASE STAGING PER NKF: MALE [...] mL/min Normal 80 and above >32 mL/min Normal Osmolality-Calculated 287.7 CALC [facility] ([facility] CLASSIFICATION CHOLESTEROL FO R ADULTS CHILDREN/ADOLESCENTS* DESIRABLE: <200 MG/DL <170 MG/DL BORDER-LINE HIGH RISK: 200-239 MG/DL 170-199 MG/DL HIGH RISK: >240 MG/DL >200 MG/DL CLASS. FOR PRIMARY LDL CHOL PREVENTION: LDL CHOL-CHILD/ADOLESCENTS* DESIRABLE: <130 MG/DL <110 MG/DL BORDERLINE-HIGH RISK: 130-159 MG/DL 110-129 MG/DL HIGH RISK: >160 MG/DL >130 MG/DL *CHILDREN AND ADOLESCENTS REPRESENTS INDIVIDUALA AGED 2-19 YEARS EXCLUSIVE. CHRONIC KIDNEY DISEASE STAGING PER NKF: MALE [...] mL/min Normal 80 and above >32 mL/min Normal eGFR Non-Afr. Ghanaian 54 # [facility] ([facility] CLASSIFICATION CHOLESTEROL FO R ADULTS CHILDREN/ADOLESCENTS* DESIRABLE: <200 MG/DL <170 MG/DL BORDER-LINE HIGH RISK: 200-239 MG/DL 170-199 MG/DL HIGH RISK: >240 MG/DL >200 MG/DL CLASS. FOR PRIMARY LDL CHOL PREVENTION: LDL CHOL-CHILD/ADOLESCENTS* DESIRABLE: <130 MG/DL <110 MG/DL BORDERLINE-HIGH RISK: 130-159 MG/DL 110-129 MG/DL HIGH RISK: >160 MG/DL >130 MG/DL *CHILDREN AND ADOLESCENTS REPRESENTS INDIVIDUALA AGED 2-19 YEARS EXCLUSIVE. CHRONIC KIDNEY DISEASE STAGING PER NKF: MALE [...] mL/min Normal 80 and above >32 mL/min Normal ID Date Data Source [id number] 02/14/2019 01:35:00 PM EST GILLIAN ([facility] Name Value Range Interpretation Code Description Data Michelle rce(s) Supporting Document(s) Thyrotropin [Units/volume] in Serum or Plasma 2.394 ulU/mL 0.60-4.8 [facility] ([facility] CLASSIFICATION CHOLESTEROL FO R ADULTS CHILDREN/ADOLESCENTS* DESIRABLE: <200 MG/DL <170 MG/DL BORDER-LINE HIGH RISK: 200-239 MG/DL 170-199 MG/DL HIGH RISK: >240 MG/DL >200 MG/DL CLASS. FOR PRIMARY LDL CHOL PREVENTION: LDL CHOL-CHILD/ADOLESCENTS* DESIRABLE: <130 MG/DL <110 MG/DL BORDERLINE-HIGH RISK: 130-159 MG/DL 110-129 MG/DL HIGH RISK: >160 MG/DL >130 MG/DL *CHILDREN AND ADOLESCENTS REPRESENTS INDIVIDUALA AGED 2-19 YEARS EXCLUSIVE. CHRONIC KIDNEY DISEASE STAGING PER NKF: MALE [...] mL/min Normal 80 and above >32 mL/min Normal ID Date Data Source [id number] 02/14/2019 01:35:00 PM EST [facility] ([facility] Name Value Range Interpretation Code Description Data Michelle rce(s) Supporting Document(s) RBC 4.04 10E6/uL 4.20-6.30 Below low normal [facility] ([facility] CLASSIFICATION CHOLESTEROL FO R ADULTS CHILDREN/ADOLESCENTS* DESIRABLE: <200 MG/DL <170 MG/DL BORDER-LINE HIGH RISK: 200-239 MG/DL 170-199 MG/DL HIGH RISK: >240 MG/DL >200 MG/DL CLASS. FOR PRIMARY LDL CHOL PREVENTION: LDL CHOL-CHILD/ADOLESCENTS* DESIRABLE: <130 MG/DL <110 MG/DL BORDERLINE-HIGH RISK: 130-159 MG/DL 110-129 MG/DL HIGH RISK: >160 MG/DL >130 MG/DL *CHILDREN AND ADOLESCENTS REPRESENTS INDIVIDUALA AGED 2-19 YEARS EXCLUSIVE. CHRONIC KIDNEY DISEASE STAGING PER NKF: MALE [...] mL/min Normal 80 and above >32 mL/min Normal WBC 6.3 10E3/uL 4.1-10.9 [facility] ([facility] CLASSIFICATION CHOLESTEROL FO R ADULTS CHILDREN/ADOLESCENTS* DESIRABLE: <200 MG/DL <170 MG/DL BORDER-LINE HIGH RISK: 200-239 MG/DL 170-199 MG/DL HIGH RISK: >240 MG/DL >200 MG/DL CLASS. FOR PRIMARY LDL CHOL PREVENTION: LDL CHOL-CHILD/ADOLESCENTS* DESIRABLE: <130 MG/DL <110 MG/DL BORDERLINE-HIGH RISK: 130-159 MG/DL 110-129 MG/DL HIGH RISK: >160 MG/DL >130 MG/DL *CHILDREN AND ADOLESCENTS REPRESENTS INDIVIDUALA AGED 2-19 YEARS EXCLUSIVE. CHRONIC KIDNEY DISEASE STAGING PER NKF: MALE [...] mL/min Normal 80 and above >32 mL/min Normal HGB 12.1 g/dL 12.0-18.0 [facility] ([facility] CLASSIFICATION CHOLESTEROL FO R ADULTS CHILDREN/ADOLESCENTS* DESIRABLE: <200 MG/DL <170 MG/DL BORDER-LINE HIGH RISK: 200-239 MG/DL 170-199 MG/DL HIGH RISK: >240 MG/DL >200 MG/DL CLASS. FOR PRIMARY LDL CHOL PREVENTION: LDL CHOL-CHILD/ADOLESCENTS* DESIRABLE: <130 MG/DL <110 MG/DL BORDERLINE-HIGH RISK: 130-159 MG/DL 110-129 MG/DL HIGH RISK: >160 MG/DL >130 MG/DL *CHILDREN AND ADOLESCENTS REPRESENTS INDIVIDUALA AGED 2-19 YEARS EXCLUSIVE. CHRONIC KIDNEY DISEASE STAGING PER NKF: MALE [...] mL/min Normal 80 and above >32 mL/min Normal HCT 36.2 % 37.0-51.0 Below low normal [facility] ( [facility] CLASSIFICATION CHOLESTEROL FO R ADULTS CHILDREN/ADOLESCENTS* DESIRABLE: <200 MG/DL <170 MG/DL BORDER-LINE HIGH RISK: 200-239 MG/DL 170-199 MG/DL HIGH RISK: >240 MG/DL >200 MG/DL CLASS. FOR PRIMARY LDL CHOL PREVENTION: LDL CHOL-CHILD/ADOLESCENTS* DESIRABLE: <130 MG/DL <110 MG/DL BORDERLINE-HIGH RISK: 130-159 MG/DL 110-129 MG/DL HIGH RISK: >160 MG/DL >130 MG/DL *CHILDREN AND ADOLESCENTS REPRESENTS INDIVIDUALA AGED 2-19 YEARS EXCLUSIVE. CHRONIC KIDNEY DISEASE STAGING PER NKF: MALE [...] mL/min Normal 80 and above >32 mL/min Normal MCV 89.6 fL 80.0-97.0 [facility] ([facility] CLASSIFICATION CHOLESTEROL FO R ADULTS CHILDREN/ADOLESCENTS* DESIRABLE: <200 MG/DL <170 MG/DL BORDER-LINE HIGH RISK: 200-239 MG/DL 170-199 MG/DL HIGH RISK: >240 MG/DL >200 MG/DL CLASS. FOR PRIMARY LDL CHOL PREVENTION: LDL CHOL-CHILD/ADOLESCENTS* DESIRABLE: <130 MG/DL <110 MG/DL BORDERLINE-HIGH RISK: 130-159 MG/DL 110-129 MG/DL HIGH RISK: >160 MG/DL >130 MG/DL *CHILDREN AND ADOLESCENTS REPRESENTS INDIVIDUALA AGED 2-19 YEARS EXCLUSIVE. CHRONIC KIDNEY DISEASE STAGING PER NKF: MALE [...] mL/min Normal 80 and above >32 mL/min Normal MCH 30.0 pg 26.0-32.0 [facility] ([facility] CLASSIFICATION CHOLESTEROL FO R ADULTS CHILDREN/ADOLESCENTS* DESIRABLE: <200 MG/DL <170 MG/DL BORDER-LINE HIGH RISK: 200-239 MG/DL 170-199 MG/DL HIGH RISK: >240 MG/DL >200 MG/DL CLASS. FOR PRIMARY LDL CHOL PREVENTION: LDL CHOL-CHILD/ADOLESCENTS* DESIRABLE: <130 MG/DL <110 MG/DL BORDERLINE-HIGH RISK: 130-159 MG/DL 110-129 MG/DL HIGH RISK: >160 MG/DL >130 MG/DL *CHILDREN AND ADOLESCENTS REPRESENTS INDIVIDUALA AGED 2-19 YEARS EXCLUSIVE. CHRONIC KIDNEY DISEASE STAGING PER NKF: MALE [...] mL/min Normal 80 and above >32 mL/min Normal MCHC 33.4 g/dL 31.0-36.0 [facility] ([facility] CLASSIFICATION CHOLESTEROL FO R ADULTS CHILDREN/ADOLESCENTS* DESIRABLE: <200 MG/DL <170 MG/DL BORDER-LINE HIGH RISK: 200-239 MG/DL 170-199 MG/DL HIGH RISK: >240 MG/DL >200 MG/DL CLASS. FOR PRIMARY LDL CHOL PREVENTION: LDL CHOL-CHILD/ADOLESCENTS* DESIRABLE: <130 MG/DL <110 MG/DL BORDERLINE-HIGH RISK: 130-159 MG/DL 110-129 MG/DL HIGH RISK: >160 MG/DL >130 MG/DL *CHILDREN AND ADOLESCENTS REPRESENTS INDIVIDUALA AGED 2-19 YEARS EXCLUSIVE. CHRONIC KIDNEY DISEASE STAGING PER NKF: MALE [...] mL/min Normal 80 and above >32 mL/min Normal RDW-CV 12.9 % 11.5-14.5 [facility] ([facility] CLASSIFICATION CHOLESTEROL FO R ADULTS CHILDREN/ADOLESCENTS* DESIRABLE: <200 MG/DL <170 MG/DL BORDER-LINE HIGH RISK: 200-239 MG/DL 170-199 MG/DL HIGH RISK: >240 MG/DL >200 MG/DL CLASS. FOR PRIMARY LDL CHOL PREVENTION: LDL CHOL-CHILD/ADOLESCENTS* DESIRABLE: <130 MG/DL <110 MG/DL BORDERLINE-HIGH RISK: 130-159 MG/DL 110-129 MG/DL HIGH RISK: >160 MG/DL >130 MG/DL *CHILDREN AND ADOLESCENTS REPRESENTS INDIVIDUALA AGED 2-19 YEARS EXCLUSIVE. CHRONIC KIDNEY DISEASE STAGING PER NKF: MALE [...] mL/min Normal 80 and above >32 mL/min Normal PLT 151 10E3/uL 140-440 [facility] ([facility] CLASSIFICATION CHOLESTEROL FO R ADULTS CHILDREN/ADOLESCENTS* DESIRABLE: <200 MG/DL <170 MG/DL BORDER-LINE HIGH RISK: 200-239 MG/DL 170-199 MG/DL HIGH RISK: >240 MG/DL >200 MG/DL CLASS. FOR PRIMARY LDL CHOL PREVENTION: LDL CHOL-CHILD/ADOLESCENTS* DESIRABLE: <130 MG/DL <110 MG/DL BORDERLINE-HIGH RISK: 130-159 MG/DL 110-129 MG/DL HIGH RISK: >160 MG/DL >130 MG/DL *CHILDREN AND ADOLESCENTS REPRESENTS INDIVIDUALA AGED 2-19 YEARS EXCLUSIVE. CHRONIC KIDNEY DISEASE STAGING PER NKF: MALE [...] mL/min Normal 80 and above >32 mL/min Normal Neut% 71.5 % 37.0-92.0 [facility] ([facility] CLASSIFICATION CHOLESTEROL FO R ADULTS CHILDREN/ADOLESCENTS* DESIRABLE: <200 MG/DL <170 MG/DL BORDER-LINE HIGH RISK: 200-239 MG/DL 170-199 MG/DL HIGH RISK: >240 MG/DL >200 MG/DL CLASS. FOR PRIMARY LDL CHOL PREVENTION: LDL CHOL-CHILD/ADOLESCENTS* DESIRABLE: <130 MG/DL <110 MG/DL BORDERLINE-HIGH RISK: 130-159 MG/DL 110-129 MG/DL HIGH RISK: >160 MG/DL >130 MG/DL *CHILDREN AND ADOLESCENTS REPRESENTS INDIVIDUALA AGED 2-19 YEARS EXCLUSIVE. CHRONIC KIDNEY DISEASE STAGING PER NKF: MALE [...] mL/min Normal 80 and above >32 mL/min Normal MXD% 8.7 % 0.1-24.0 [facility] ([facility] CLASSIFICATION CHOLESTEROL FO R ADULTS CHILDREN/ADOLESCENTS* DESIRABLE: <200 MG/DL <170 MG/DL BORDER-LINE HIGH RISK: 200-239 MG/DL 170-199 MG/DL HIGH RISK: >240 MG/DL >200 MG/DL CLASS. FOR PRIMARY LDL CHOL PREVENTION: LDL CHOL-CHILD/ADOLESCENTS* DESIRABLE: <130 MG/DL <110 MG/DL BORDERLINE-HIGH RISK: 130-159 MG/DL 110-129 MG/DL HIGH RISK: >160 MG/DL >130 MG/DL *CHILDREN AND ADOLESCENTS REPRESENTS INDIVIDUALA AGED 2-19 YEARS EXCLUSIVE. CHRONIC KIDNEY DISEASE STAGING PER NKF: MALE [...] mL/min Normal 80 and above >32 mL/min Normal Lym% 19.8 % 10.0-58.5 [facility] ([facility] CLASSIFICATION CHOLESTEROL FO R ADULTS CHILDREN/ADOLESCENTS* DESIRABLE: <200 MG/DL <170 MG/DL BORDER-LINE HIGH RISK: 200-239 MG/DL 170-199 MG/DL HIGH RISK: >240 MG/DL >200 MG/DL CLASS. FOR PRIMARY LDL CHOL PREVENTION: LDL CHOL-CHILD/ADOLESCENTS* DESIRABLE: <130 MG/DL <110 MG/DL BORDERLINE-HIGH RISK: 130-159 MG/DL 110-129 MG/DL HIGH RISK: >160 MG/DL >130 MG/DL *CHILDREN AND ADOLESCENTS REPRESENTS INDIVIDUALA AGED 2-19 YEARS EXCLUSIVE. CHRONIC KIDNEY DISEASE STAGING PER NKF: MALE [...] mL/min Normal 80 and above >32 mL/min Normal Neut# 4.6 % 2.0-7.8 [facility] CLASSIFICATION CHOLESTEROL FO R ADULTS CHILDREN/ADOLESCENTS* DESIRABLE: <200 MG/DL <170 MG/DL BORDER-LINE HIGH RISK: 200-239 MG/DL 170-199 MG/DL HIGH RISK: >240 MG/DL >200 MG/DL CLASS. FOR PRIMARY LDL CHOL PREVENTION: LDL CHOL-CHILD/ADOLESCENTS* DESIRABLE: <130 MG/DL <110 MG/DL BORDERLINE-HIGH RISK: 130-159 MG/DL 110-129 MG/DL HIGH RISK: >160 MG/DL >130 MG/DL *CHILDREN AND ADOLESCENTS REPRESENTS INDIVIDUALA AGED 2-19 YEARS EXCLUSIVE. CHRONIC KIDNEY DISEASE STAGING PER NKF: MALE [...] mL/min Normal 80 and above >32 mL/min Normal Lym# 1.2 10E3/uL 0.6-4.1 [facility] ([facility] CLASSIFICATION CHOLESTEROL FO R ADULTS CHILDREN/ADOLESCENTS* DESIRABLE: <200 MG/DL <170 MG/DL BORDER-LINE HIGH RISK: 200-239 MG/DL 170-199 MG/DL HIGH RISK: >240 MG/DL >200 MG/DL CLASS. FOR PRIMARY LDL CHOL PREVENTION: LDL CHOL-CHILD/ADOLESCENTS* DESIRABLE: <130 MG/DL <110 MG/DL BORDERLINE-HIGH RISK: 130-159 MG/DL 110-129 MG/DL HIGH RISK: >160 MG/DL >130 MG/DL *CHILDREN AND ADOLESCENTS REPRESENTS INDIVIDUALA AGED 2-19 YEARS EXCLUSIVE. CHRONIC KIDNEY DISEASE STAGING PER NKF: MALE [...] mL/min Normal 80 and above >32 mL/min Normal MPV 10.7 fL 9.0-13.0 [facility] ([facility] CLASSIFICATION CHOLESTEROL FO R ADULTS CHILDREN/ADOLESCENTS* DESIRABLE: <200 MG/DL <170 MG/DL BORDER-LINE HIGH RISK: 200-239 MG/DL 170-199 MG/DL HIGH RISK: >240 MG/DL >200 MG/DL CLASS. FOR PRIMARY LDL CHOL PREVENTION: LDL CHOL-CHILD/ADOLESCENTS* DESIRABLE: <130 MG/DL <110 MG/DL BORDERLINE-HIGH RISK: 130-159 MG/DL 110-129 MG/DL HIGH RISK: >160 MG/DL >130 MG/DL *CHILDREN AND ADOLESCENTS REPRESENTS INDIVIDUALA AGED 2-19 YEARS EXCLUSIVE. CHRONIC KIDNEY DISEASE STAGING PER NKF: MALE [...] mL/min Normal 80 and above >32 mL/min Normal MXD# 0.5 10E3/uL 0.0-1.8 [facility] ([facility] CLASSIFICATION CHOLESTEROL FO R ADULTS CHILDREN/ADOLESCENTS* DESIRABLE: <200 MG/DL <170 MG/DL BORDER-LINE HIGH RISK: 200-239 MG/DL 170-199 MG/DL HIGH RISK: >240 MG/DL >200 MG/DL CLASS. FOR PRIMARY LDL CHOL PREVENTION: LDL CHOL-CHILD/ADOLESCENTS* DESIRABLE: <130 MG/DL <110 MG/DL BORDERLINE-HIGH RISK: 130-159 MG/DL 110-129 MG/DL HIGH RISK: >160 MG/DL >130 MG/DL *CHILDREN AND ADOLESCENTS REPRESENTS INDIVIDUALA AGED 2-19 YEARS EXCLUSIVE. CHRONIC KIDNEY DISEASE STAGING PER NKF: MALE [...] mL/min Normal 80 and above >32 mL/min Normal ID Date Data Source [id number] 02/14/2019 01:35:00 PM EST [facility] ([facility] Name Value Range Interpretation Code Description Data Michelle rce(s) Supporting Document(s) Glu 127 mg/dL 70-110 Above high normal [facility] ([facility] CLASSIFICATION CHOLESTEROL FO R ADULTS CHILDREN/ADOLESCENTS* DESIRABLE: <200 MG/DL <170 MG/DL BORDER-LINE HIGH RISK: 200-239 MG/DL 170-199 MG/DL HIGH RISK: >240 MG/DL >200 MG/DL CLASS. FOR PRIMARY LDL CHOL PREVENTION: LDL CHOL-CHILD/ADOLESCENTS* DESIRABLE: <130 MG/DL <110 MG/DL BORDERLINE-HIGH RISK: 130-159 MG/DL 110-129 MG/DL HIGH RISK: >160 MG/DL >130 MG/DL *CHILDREN AND ADOLESCENTS REPRESENTS INDIVIDUALA AGED 2-19 YEARS EXCLUSIVE. CHRONIC KIDNEY DISEASE STAGING PER NKF: MALE [...] mL/min Normal 80 and above >32 mL/min Normal BUN/Creatinine Ratio 23.7 Calc [facility] ([facility] CLASSIFICATION CHOLESTEROL FO R ADULTS CHILDREN/ADOLESCENTS* DESIRABLE: <200 MG/DL <170 MG/DL BORDER-LINE HIGH RISK: 200-239 MG/DL 170-199 MG/DL HIGH RISK: >240 MG/DL >200 MG/DL CLASS. FOR PRIMARY LDL CHOL PREVENTION: LDL CHOL-CHILD/ADOLESCENTS* DESIRABLE: <130 MG/DL <110 MG/DL BORDERLINE-HIGH RISK: 130-159 MG/DL 110-129 MG/DL HIGH RISK: >160 MG/DL >130 MG/DL *CHILDREN AND ADOLESCENTS REPRESENTS INDIVIDUALA AGED 2-19 YEARS EXCLUSIVE. CHRONIC KIDNEY DISEASE STAGING PER NKF: MALE [...] mL/min Normal 80 and above >32 mL/min Normal BUN 29 mg/dL 8-23 Above high normal [facility] ([facility] CLASSIFICATION CHOLESTEROL FO R ADULTS CHILDREN/ADOLESCENTS* DESIRABLE: <200 MG/DL <170 MG/DL BORDER-LINE HIGH RISK: 200-239 MG/DL 170-199 MG/DL HIGH RISK: >240 MG/DL >200 MG/DL CLASS. FOR PRIMARY LDL CHOL PREVENTION: LDL CHOL-CHILD/ADOLESCENTS* DESIRABLE: <130 MG/DL <110 MG/DL BORDERLINE-HIGH RISK: 130-159 MG/DL 110-129 MG/DL HIGH RISK: >160 MG/DL >130 MG/DL *CHILDREN AND ADOLESCENTS REPRESENTS INDIVIDUALA AGED 2-19 YEARS EXCLUSIVE. CHRONIC KIDNEY DISEASE STAGING PER NKF: MALE [...] mL/min Normal 80 and above >32 mL/min Normal Creat 1.2 mg/dL 0.7-1.2 [facility] ([facility] CLASSIFICATION CHOLESTEROL FO R ADULTS CHILDREN/ADOLESCENTS* DESIRABLE: <200 MG/DL <170 MG/DL BORDER-LINE HIGH RISK: 200-239 MG/DL 170-199 MG/DL HIGH RISK: >240 MG/DL >200 MG/DL CLASS. FOR PRIMARY LDL CHOL PREVENTION: LDL CHOL-CHILD/ADOLESCENTS* DESIRABLE: <130 MG/DL <110 MG/DL BORDERLINE-HIGH RISK: 130-159 MG/DL 110-129 MG/DL HIGH RISK: >160 MG/DL >130 MG/DL *CHILDREN AND ADOLESCENTS REPRESENTS INDIVIDUALA AGED 2-19 YEARS EXCLUSIVE. CHRONIC KIDNEY DISEASE STAGING PER NKF: MALE [...] mL/min Normal 80 and above >32 mL/min Normal Co2 21.8 mmol/L 22.0-29.0 Below low normal [facility] ([facility] CLASSIFICATION CHOLESTEROL FO R ADULTS CHILDREN/ADOLESCENTS* DESIRABLE: <200 MG/DL <170 MG/DL BORDER-LINE HIGH RISK: 200-239 MG/DL 170-199 MG/DL HIGH RISK: >240 MG/DL >200 MG/DL CLASS. FOR PRIMARY LDL CHOL PREVENTION: LDL CHOL-CHILD/ADOLESCENTS* DESIRABLE: <130 MG/DL <110 MG/DL BORDERLINE-HIGH RISK: 130-159 MG/DL 110-129 MG/DL HIGH RISK: >160 MG/DL >130 MG/DL *CHILDREN AND ADOLESCENTS REPRESENTS INDIVIDUALA AGED 2-19 YEARS EXCLUSIVE. CHRONIC KIDNEY DISEASE STAGING PER NKF: MALE [...] mL/min Normal 80 and above >32 mL/min Normal CA 9.5 mg/dL 8.6-10.2 [facility] ([facility] CLASSIFICATION CHOLESTEROL FO R ADULTS CHILDREN/ADOLESCENTS* DESIRABLE: <200 MG/DL <170 MG/DL BORDER-LINE HIGH RISK: 200-239 MG/DL 170-199 MG/DL HIGH RISK: >240 MG/DL >200 MG/DL CLASS. FOR PRIMARY LDL CHOL PREVENTION: LDL CHOL-CHILD/ADOLESCENTS* DESIRABLE: <130 MG/DL <110 MG/DL BORDERLINE-HIGH RISK: 130-159 MG/DL 110-129 MG/DL HIGH RISK: >160 MG/DL >130 MG/DL *CHILDREN AND ADOLESCENTS REPRESENTS INDIVIDUALA AGED 2-19 YEARS EXCLUSIVE. CHRONIC KIDNEY DISEASE STAGING PER NKF: MALE [...] mL/min Normal 80 and above >32 mL/min Normal K 4.5 mmol/L 3.5-5.1 [facility] ([facility] CLASSIFICATION CHOLESTEROL FO R ADULTS CHILDREN/ADOLESCENTS* DESIRABLE: <200 MG/DL <170 MG/DL BORDER-LINE HIGH RISK: 200-239 MG/DL 170-199 MG/DL HIGH RISK: >240 MG/DL >200 MG/DL CLASS. FOR PRIMARY LDL CHOL PREVENTION: LDL CHOL-CHILD/ADOLESCENTS* DESIRABLE: <130 MG/DL <110 MG/DL BORDERLINE-HIGH RISK: 130-159 MG/DL 110-129 MG/DL HIGH RISK: >160 MG/DL >130 MG/DL *CHILDREN AND ADOLESCENTS REPRESENTS INDIVIDUALA AGED 2-19 YEARS EXCLUSIVE. CHRONIC KIDNEY DISEASE STAGING PER NKF: MALE [...] mL/min Normal 80 and above >32 mL/min Normal Na 136 mmol/L 136-145 [facility] ([facility] CLASSIFICATION CHOLESTEROL FO R ADULTS CHILDREN/ADOLESCENTS* DESIRABLE: <200 MG/DL <170 MG/DL BORDER-LINE HIGH RISK: 200-239 MG/DL 170-199 MG/DL HIGH RISK: >240 MG/DL >200 MG/DL CLASS. FOR PRIMARY LDL CHOL PREVENTION: LDL CHOL-CHILD/ADOLESCENTS* DESIRABLE: <130 MG/DL <110 MG/DL BORDERLINE-HIGH RISK: 130-159 MG/DL 110-129 MG/DL HIGH RISK: >160 MG/DL >130 MG/DL *CHILDREN AND ADOLESCENTS REPRESENTS INDIVIDUALA AGED 2-19 YEARS EXCLUSIVE. CHRONIC KIDNEY DISEASE STAGING PER NKF: MALE [...] mL/min Normal 80 and above >32 mL/min Normal CL 102.5 mmol/L 98.0-107.0 [facility] ([facility] CLASSIFICATION CHOLESTEROL FO R ADULTS CHILDREN/ADOLESCENTS* DESIRABLE: <200 MG/DL <170 MG/DL BORDER-LINE HIGH RISK: 200-239 MG/DL 170-199 MG/DL HIGH RISK: >240 MG/DL >200 MG/DL CLASS. FOR PRIMARY LDL CHOL PREVENTION: LDL CHOL-CHILD/ADOLESCENTS* DESIRABLE: <130 MG/DL <110 MG/DL BORDERLINE-HIGH RISK: 130-159 MG/DL 110-129 MG/DL HIGH RISK: >160 MG/DL >130 MG/DL *CHILDREN AND ADOLESCENTS REPRESENTS INDIVIDUALA AGED 2-19 YEARS EXCLUSIVE. CHRONIC KIDNEY DISEASE STAGING PER NKF: MALE [...] mL/min Normal 80 and above >32 mL/min Normal eGFR 64 # [facility] ( [facility] CKD-EPI Anion Gap 16 mmol/L [facility] ([facility] CLASSIFICATION CHOLESTEROL FO R ADULTS CHILDREN/ADOLESCENTS* DESIRABLE: <200 MG/DL <170 MG/DL BORDER-LINE HIGH RISK: 200-239 MG/DL 170-199 MG/DL HIGH RISK: >240 MG/DL >200 MG/DL CLASS. FOR PRIMARY LDL CHOL PREVENTION: LDL CHOL-CHILD/ADOLESCENTS* DESIRABLE: <130 MG/DL <110 MG/DL BORDERLINE-HIGH RISK: 130-159 MG/DL 110-129 MG/DL HIGH RISK: >160 MG/DL >130 MG/DL *CHILDREN AND ADOLESCENTS REPRESENTS INDIVIDUALA AGED 2-19 YEARS EXCLUSIVE. CHRONIC KIDNEY DISEASE STAGING PER NKF: MALE [...] mL/min Normal 80 and above >32 mL/min Normal eGFR Non-Afr. [place]ian 55 # [facility] ([facility] CKD-EPI Procedure Social History Code Duration Value Status Description Data Source(s ) Smoking 10/21/2019 03:12:00 PM EDT Never smoked tobacco (findi ng) completed Never smoked tobacco (finding) [place] (Jaleel Chino MD [facility]) Vital Signs ID Date Data Source UNK Name Value Range Interpretation Code Description Data Source(s) [place] body weight 166 [lb_av] 166 [lb_av] [facility] ([facility], ) Body mass index (BMI) [Ratio] 26.3 kg/m2 26.3 k g/m2 [facility] ([facility], ) Body weight 183.00 [lb_av] 183.00 [lb_av] [facility] ([facility], ) Body height 70 [in_i] 70 [in_i] [facility] ([facility], ) 5'10" Respiratory rate 12 /min 12 /min [facility] ( [facility], ) Oxygen saturation in Arterial blood by Pulse oximetry 98 % 98 % [facility] ([facility] Body mass index (BMI) [Ratio] 28.7 kg/m2 28.7 k g/m2 [facility] ([facility] [place] body weight 148 [lb_av] 148 [lb_av] [facility] ([facility] Body weight 183.00 [lb_av] 183.00 [lb_av] [facility] ([facility] Body height 67 [in_i] 67 [in_i] [facility] ([facility] 5'7" Respiratory rate 12 /min 12 /min [facility] ( [facility] Heart rate 86 /min 86 /min [facility] ([facility] Body temperature 98.4 [degF] 98.4 [degF] [facility] ([facility] Diastolic blood pressure 80 mm[Hg] 80 mm[Hg] [facility] ([facility] Systolic blood pressure 136 mm[Hg] 136 mm[Hg] M [facility] ([facility] Oxygen saturation in Arterial blood by Pulse oximetry 98 % 98 % [facility] ([facility] Body mass index (BMI) [Ratio] 28.3 kg/m2 28.3 k g/m2 [facility] ([facility] [place] body weight 148 [lb_av] 148 [lb_av] [facility] ([facility] Body weight 181.00 [lb_av] 181.00 [lb_av] [facility] ([facility] Body height 67 [in_i] 67 [in_i] [facility] ([facility] 5'7" Respiratory rate 16 /min 16 /min [facility] ( [facility] Heart rate 82 /min 82 /min [facility] ([facility] Body temperature 97.9 [degF] 97.9 [degF] [facility] ([facility] Diastolic blood pressure 74 mm[Hg] 74 mm[Hg] [facility] ([facility] Systolic blood pressure 140 mm[Hg] 140 mm[Hg] M [facility] ([facility] [place] body weight 166 [lb_av] 166 [lb_av] [facility] ([facility], ) Body mass index (BMI) [Ratio] 26.3 kg/m2 26.3 k g/m2 [facility] ([facility], ) Body weight 183.00 [lb_av] 183.00 [lb_av] [facility] ([facility], ) Body height 70 [in_i] 70 [in_i] [facility] ([facility], ) 5'10" Respiratory rate 12 /min 12 /min [facility] ( [facility]) Oxygen saturation in Arterial blood by Pulse oximetry 97 % 97 % [facility] ([facility]) Body mass index (BMI) [Ratio] 28.7 kg/m2 28.7 k g/m2 [facility] ([facility]) Body weight 183.00 [lb_av] 183.00 [lb_av] [facility] ([facility]) Body height 67 [in_i] 67 [in_i] [facility] ([facility], ) Respiratory rate 14 /min 14 /min [facility], [facility] Body temperature 99.1 [degF] 99.1 [degF] [facility] Heart rate 74 /min 74 /min [facility], ) Diastolic blood pressure 74 mm[Hg] 74 mm[Hg] [facility] ([facility], ) Systolic blood pressure 138 mm[Hg] 138 mm[Hg] [facility] Oxygen saturation in Arterial blood by Pulse oximetry 97 % 97 % [facility] ([facility] Body mass index (BMI) [Ratio] 28.7 kg/m2 28.7 k g/m2 [facility] ([facility] [place] body weight 148 [lb_av] 148 [lb_av] [facility] ([facility] Body weight 183.00 [lb_av] 183.00 [lb_av] [facility] ([facility] Body height 67 [in_i] 67 [in_i] [facility] ([facility] 5'7" Respiratory rate 14 /min 14 /min [facility] ( [facility] Heart rate 74 /min 74 /min [facility] ([facility] Body temperature 99.1 [degF] 99.1 [degF] [facility] ([facility] Diastolic blood pressure 74 mm[Hg] 74 mm[Hg] [facility] ([facility] Systolic blood pressure 138 mm[Hg] 138 mm[Hg] M [facility] ([facility] Body mass index (BMI) [Ratio] 28.9 kg/m2 28.9 k g/m2 [facility] ([facility] Heart rate 108 /min 108 /min [facility] ([facility] Diastolic blood pressure 68 mm[Hg] 68 mm[Hg] [facility] ([facility] Systolic blood pressure 120 mm[Hg] 120 mm[Hg] M [facility] ([facility] Body weight 190.00 [lb_av] 190.00 [lb_av] [facility] ([facility] Body height 68 [in_i] 68 [in_i] [facility] ([facility] 5'8" Oxygen saturation in Arterial blood by Pulse oximetry 97 % 97 % [facility] ([facility] Body mass index (BMI) [Ratio] 28.8 kg/m2 28.8 k g/m2 [facility] ([facility] [place] body weight 148 [lb_av] 148 [lb_av] [facility] ([facility] Body weight 184.00 [lb_av] 184.00 [lb_av] [facility] ([facility] Body height 67 [in_i] 67 [in_i] [facility] ([facility] 5'7" Respiratory rate 12 /min 12 /min [facility] ( [facility] Heart rate 74 /min 74 /min [facility] ([facility] Body temperature 97.9 [degF] 97.9 [degF] [facility] ([facility] Diastolic blood pressure 70 mm[Hg] 70 mm[Hg] [facility] ([facility] Systolic blood pressure 124 mm[Hg] 124 mm[Hg] M [facility] ([facility] Body weight 86.184 kg 86.184 kg [facility] ([facility]) Body mass index (BMI) [Ratio] 28.1 kg/m2 28.1 k g/m2 [facility] ([facility]) Body weight 190.00 [lb_av] 190.00 [lb_av] [facility] ([facility]) Body height 69 [in_i] 69 [in_i] [facility] ([facility]) 5'9" Body weight 86.184 kg 86.184 kg [facility] ([facility]) Body mass index (BMI) [Ratio] 28.1 kg/m2 28.1 k g/m2 [facility] ([facility]) Body weight 190.00 [lb_av] 190.00 [lb_av] [facility] ([facility]) Body height 69 [in_i] 69 [in_i] [facility] ([facility]) 5'9" Oxygen saturation in Arterial blood by Pulse oximetry 97 % 97 % [facility] Body mass index (BMI) [Ratio] 29.2 kg/m2 29.2 k g/m2 [facility] ([facility] Body weight 186.25 [lb_av] 186.25 [lb_av] [facility] ([facility] Body height 67 [in_i] 67 [in_i] [facility] ([facility] 5'7" Respiratory rate 16 /min 16 /min [facility] ( [facility] Heart rate 90 /min 90 /min [facility] ([facility] Body temperature 98.1 [degF] 98.1 [degF] [facility] ([facility] Diastolic blood pressure 64 mm[Hg] 64 mm[Hg] [facility] ([facility] Systolic blood pressure 124 mm[Hg] 124 mm[Hg] M [facility] ([facility] Oxygen saturation in Arterial blood by Pulse oximetry 96 % 96 % [facility] ([facility] Body mass index (BMI) [Ratio] 30.1 kg/m2 30.1 k g/m2 [facility] ([facility] Body weight 192.00 [lb_av] 192.00 [lb_av] [facility] ([facility] Body height 67 [in_i] 67 [in_i] [facility] ([facility] 5'7" Respiratory rate 14 /min 14 /min [facility] ( [facility] Heart rate 90 /min 90 /min [facility] ([facility] Body temperature 98.0 [degF] 98.0 [degF] [facility] ([facility] Diastolic blood pressure 78 mm[Hg] 78 mm[Hg] [facility] ([facility] Systolic blood pressure 160 mm[Hg] 160 mm[Hg] M [facility] ([facility]
[2020-04-02] MEDS ORDERED: CARB25TA9 PO (11:42)
[2020-04-02] MEDS ORDERED: HYDR-3490 PO (11:42)
--- OUTSIDE RECORDS SUMMARY | 2020-04-02 11:58 | CCD ---
Author Author [facility] Organization [facility] Address Unknown Phone Unavailable Care Team Providers Care Adapted Physical Education Specialist Name Role Phone Roosevelt Chino, Zulma Marmolejo [...] is protected by Article 27-F of the [facility] Public Health law. If you continue you may have access to information: Regarding HIV / AIDS; Provided by facilities licensed or operated by the [facility] Office of Mental Health; or Provided by the [facility] Office for People With Developmental Disabilities. If such information is present, then the following [facility] mandated warning applies: This information has [...] law may result in a fine or assisted sentence or both. A general authorization for the release of medical or other information is NOT sufficient authorization for further disc losure. Encounters Encounter Providers Location Date Indications Data Source(s ) Office Visit Attender: Donovan Young MD [facility] 02/23/2020 01:00:00 PM EST [facility] ([facility] Outpatient Attender: DARRYL PEGUERO MD [facility] 09/2019 09:20:00 AM EST [facility] ([facility] Outpatient Attender: Grisel PMOPA [facility] 01/06/2020 10:30:00 AM EST [facility] ([facility] Outpatient Attender: Donovan Young MD [facility] 11/14/2019 09:30:00 AM EDT [facility] ([facility] Outpatient Attender: DARRYL PEGUERO MD [place] [facility] 02:30:00 PM EDT [facility] (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 Posterior Capsule Opacification Eccentri c Capsule Left Eye Pseudophakia Essential Hypertension Borderline Glaucoma Ocular Hypertension Both Eyes [facility] 01[facility]00 PM EDT [facility] Outpatient Attender: DARRYL PEGUERO MD [place] [facility] 04/2019 03:20:00 PM EDT [facility] ([facility] Outpatient Attender: Ben Cid/Kem/Marcus/[place] 06/20/2019 01:40:00 PM EDT [facility] Outpatient Attender: DARRYL PEGUERO MD [place] [facility] 10:20:00 AM EDT [facility] ([facility] Outpatient Att[place]: [place]ARRYL [place] [facility] 12:00:00 PM EST [facility] ([facility] Immunizations Vaccine Date Status Description Data Source(s) New in 2012. IIV4 10/31/2019 03:37:00 PM EDT completed [facility] ([facility] Medications Medication Brand Name Start Date Product Form Dose Route Admi nistrative Instructions Pharmacy Instructions Status Indications Reaction Description Data Source(s) Carbidopa 25 MG / Levodopa 100 MG Oral Tablet Carbidopa-Levo dopa 01/11/2020 12:00:00 AM EST ORAL active M EDENT ([facility], ) Diazepam 5 MG Oral Tablet Diazepam 11/18/2019 12:00:00 AM EDT active [facility] ([facility], ) Primidone 50 MG Oral Tablet Primidone 06/14/2019 12:00:00 AM EDT ORAL completed [facility] ([facility] Esomeprazole 40 MG Delayed Release Oral Capsule Esomeprazole Magnesium 04/26/2019 12:00:00 AM EDT ORAL active [facility] ([facility] Esomeprazole 40 MG Delayed Release Oral Capsule Esomeprazole Magnesium 04/26/2019 12:00:00 AM EDT ORAL active [facility] ([facility], ) Escitalopram 10 MG Oral Tablet [Lexapro] Lexapro 02/14/2019 12:00: 00 AM EST ORAL completed [facility] ([facility] Insurance Providers Payer name Policy type / Coverage type Policy ID Covered democrat ID Covered democrat's relationship to lazcano Policy Lazcano Plan Information [facility] [id number] SP [id number] MEDICARE [id number] SP [id number] [employer] [place] Other 0 Self [address] [facility] Other 0 Se lf 0 R [facility] [id number] SP [id number] MEDICARE [id number] SP [id number] A [employer] [place] Other 0 Self 0 Medicare Part B of [facility] Other 0 Se lf 0 UMR [id number] Jasmin [id number] MEDICARE [id number] Jasmin [id number] [employer] [id number] SP [id number] MEDICARE C [id number] S [id number] A [employer] PPO O [id number] S [id number] MEDICARE C [id number] S [id number] A [id number] Problems, Conditions, and Diagnoses Code Display Name Description Problem Type Effective Dates Data Source(s) 50295375 Tremor Tremor Problem 11/14/2019 12:00:00 AM ED T [facility] ([facility], ) [id number] 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 Bilateral Early Dry Stage Problem 12:00:00 AM EDT EUGENIO (Jaleel Chino MD [facility]) [id number] Ingrowing nail Ingrowing nail Problem 08/16/2019 12:00: 00 AM EDT [facility] ([facility] [id number] Onychomycosis Onychomycosis Problem 08/16/2019 12:00:00 AM EDT [facility] ([facility] [id number] Pain in limb Pain in limb Problem 08/16/2019 12:00:00 A M EDT [facility] ([facility] Surgeries/Procedures Procedure Description Date Indications Data Source(s) DEBRIDEMENT NAIL ANY METHOD 03/05/2020 12:00:00 AM EST [facility] ([facility] TSTG ANS FUNCJ CARDIOVAGAL INNERVAJ PARASYMP 0 12:00:00 AM EST [facility] ([facility], ) TSTG ANS FUNCJ CARDIOVAGAL INNERVAJ PARASYMP 0 12:00:00 AM EST MED[facility] ([facility], ) TESTING AUTONOMIC NERVOUS SYSTEM FUNCTION 01/25/2020 1 2:00:00 AM EST [facility] ([facility], ) TESTING AUTONOMIC NERVOUS SYSTEM FUNCTION 01/25/2020 1 2:00:00 AM EST [facility] ([facility], ) DEBRIDEMENT NAIL ANY METHOD 01/02/2020 12:00:00 AM EST [facility] ([facility] ELECTROENCEPHALOGRAM W/REC AWAKE&ASLEEP 12/26/2019 12: 00:00 AM EST [facility] ([facility], ) ELECTROENCEPHALOGRAM W/REC AWAKE&ASLEEP 12/26/2019 12: 00:00 AM EST [facility] ([facility]) MRI BRAIN BRAIN STEM W/O CONTRAST MATERIAL 11/22/2019 12:00:00 AM EDT [facility] ([facility]) MRI BRAIN BRAIN STEM W/O CONTRAST MATERIAL 11/22/2019 12:00:00 AM EDT [facility] ([facility]) DEBRIDEMENT NAIL ANY METHOD 10/25/2019 12:00:00 AM EDT [facility] ([facility] Discission of membranous cataract, secondary (procedur e) 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 Gallegos 10/21/2019 12:00:00 AM EDT EUGENIO (Luther Chino MD [facility]) COMPUTERIZED OPHTHALMIC IMAGING RETINA Scodi Retina, w ith interpretation and report (GA) 10/21/2019 12:00:00 AM EDT EUGENIO (Luther Chino MD [facility]) Comprehensive eye exam established patient (25) Compre hensive eye exam established patient (25) 10/21/2019 12:00:00 AM EDT EUGENIO (Jaleel Chino MD [facility]) DEBRIDEMENT NAIL ANY METHOD 08/15/2019 12:00:00 AM EDT [facility] ([facility] LARYNGOSCOPY FLEXIBLE FIBEROPTIC DIAGNOSTIC 06/20/2019 12:00:00 AM EDT [facility] ([facility], ) Binocular Microscopy 06/20/2019 12:00:00 AM EDT [facility] ([facility], ) Results ID Date Data Source [id number] 01/27/2020 01:13:00 PM EST [facility] ([facility] Name Value Range Interpretation Code Description Data Michelle rce(s) Supporting Document(s) Occult Blood Laboratory test result [facility] ([facility] ID Date Data Source [id number] 01/24/2020 10:48:00 AM EST [facility] ([facility] Name Value Range Interpretation Code Description Data Michelle rce(s) Supporting Document(s) Iron binding capacity [Mass/volume] in Serum or Plasma 262 ug/dL 250 -450 [facility] ([facility] Iron binding capacity.unsaturated [Mass/volume] in Serum or Plasma 187 ug/dL 111-343 [facility] ([facility] Iron saturation [Mass Fraction] in Serum or Plasma 29 % 15-55 [facility] ([facility] Iron [Mass/volume] in Serum or Plasma 75 ug/dL 38-169 [facility] ([facility] ID Date Data Source [id number] 01/24/2020 10:48:00 AM EST [facility] ([facility] Name Value Range Interpretation Code Description Data Michelle rce(s) Supporting Document(s) RBC 3.78 10E6/uL 4.20-6.30 Below low normal [facility] ([facility] NORMAL RANGES Age WBC [...] HCT IS 5% LESS SOURCE FOR DATA: [employer] 1800 OPERATION MANUAL( AUTOMATED BLOOD COUNTS AND DIFF.) APPENDIX B-3 WBC 3.5 10E3/uL 4.1-10.9 Below low normal [facility] ([facility] NORMAL RANGES Age WBC [...] HCT IS 5% LESS SOURCE FOR DATA: [employer] 1800 OPERATION MANUAL( AUTOMATED BLOOD COUNTS AND DIFF.) APPENDIX B-3 HGB 10.8 g/dL 12.0-18.0 Below low normal [facility] ( [facility] NORMAL RANGES Age WBC [...] HCT 33.5 % 37.0-51.0 Below low normal [facility] ( [facility] NORMAL RANGES Age WBC [...] DIFF.) APPENDIX B-3 MCV 88.6 fL 80.0-97.0 [facility] ([facility] NORMAL RANGES Age WBC RBC [...] HCT IS 5% LESS SOURCE FOR DATA: [employer] 1800 OPERATION MANUAL( AUTOMATED BLOOD COUNTS AND DIFF.) APPENDIX B-3 MCH 28.6 pg 26.0-32.0 [facility] ([facility] NORMAL RANGES Age WBC RBC [...] HCT IS 5% LESS SOURCE FOR DATA: [employer] 1800 OPERATION MANUAL( AUTOMATED BLOOD COUNTS AND DIFF.) APPENDIX B-3 MCHC 32.2 g/dL 31.0-36.0 [facility] NORMAL RANGES Age [...] HCT IS 5% LESS SOURCE FOR DATA: [employer] 1800 OPERATION MANUAL( AUTOMATED BLOOD COUNTS AND DIFF.) APPENDIX B-3 PLT 139 10E3/uL 140-440 Below low normal [facility] ([facility] NORMAL RANGES Age WBC [...] HCT IS 5% LESS SOURCE FOR DATA: [employer] 1800 OPERATION MANUAL( AUTOMATED BLOOD COUNTS AND DIFF.) APPENDIX B-3 RDW-CV 12.9 % 11.5-14.5 [facility] ([facility] NORMAL RANGES Age [...] DIFF.) APPENDIX B-3 Lym% 23.9 % 10.0-58.5 [facility] ([facility] NORMAL RANGES Age WBC RBC [...] HCT IS 5% LESS SOURCE FOR DATA: [employer] 1800 OPERATION MANUAL( AUTOMATED BLOOD COUNTS AND DIFF.) APPENDIX B-3 Neut% 68.5 % 37.0-92.0 [facility] ([facility] NORMAL RANGES Age WBC RBC [...] HCT IS 5% LESS SOURCE FOR DATA: [employer] 1800 OPERATION MANUAL( AUTOMATED BLOOD COUNTS AND DIFF.) APPENDIX B-3 MXD% 7.6 % 0.1-24.0 [facility] ([facility] NORMAL RANGES Age WBC RBC [...] HCT IS 5% LESS SOURCE FOR DATA: [employer] 1800 OPERATION MANUAL( AUTOMATED BLOOD COUNTS AND DIFF.) APPENDIX B-3 Neut# 2.4 % 2.0-7.8 [facility] ([facility] NORMAL RANGES Age [...] HCT IS 5% LESS SOURCE FOR DATA: [employer] 1800 OPERATION MANUAL( AUTOMATED BLOOD COUNTS AND DIFF.) APPENDIX B-3 Lym# 0.8 10E3/uL 0.6-4.1 [facility] ([facility] NORMAL RANGES Age [...] HCT IS 5% LESS SOURCE FOR DATA: [employer] 1800 OPERATION MANUAL( AUTOMATED BLOOD COUNTS AND DIFF.) APPENDIX B-3 MXD# 0.3 10E3/uL 0.0-1.8 [facility] ([facility] NORMAL RANGES Age WBC RBC HGB [...] IS 5% LESS SOURCE FOR DATA: [employer] 1800 OPERATION MANUAL( AUTOMATED BLOOD COUNTS AND DIFF.) APPENDIX B-3 MPV 10.3 fL 9.0-13.0 [facility] ([facility] NORMAL RANGES Age [...] DIFF.) APPENDIX B-3 ID Date Data Source [id number] 01/18/2020 11:24:00 AM EST MEDALEX ([facility] Name Value Range Interpretation Code Description Data Michelle rce(s) Supporting Document(s) RBC 3.69 10E6/uL 4.20-6.30 Below low normal [facility] ([facility] NORMAL RANGES Age WBC [...] 2-19 YEARS EXCLUSIVE. WBC 4.7 10E3/uL 4.1-10.9 [facility] ([facility] NORMAL RANGES Age [...] HCT IS 5% LESS SOURCE FOR DATA: [employer] 1800 OPERATION MANUAL( AUTOMATED BLOOD COUNTS AND [...] HCT IS 5% LESS SOURCE FOR DATA: [employer] 1800 OPERATION MANUAL( AUTOMATED BLOOD COUNTS AND [...] HCT 33.0 % 37.0-51.0 Below low normal [facility] ( [facility] NORMAL RANGES [...] HGB 10.8 g/dL 12.0-18.0 Below low normal [facility] ( [facility] NORMAL RANGES [...] HCT IS 5% LESS SOURCE FOR DATA: [employer] 1800 OPERATION MANUAL( AUTOMATED BLOOD COUNTS AND [...] HCT IS 5% LESS SOURCE FOR DATA: [employer] 1800 OPERATION MANUAL( AUTOMATED BLOOD COUNTS AND [...] 2-19 YEARS EXCLUSIVE. MCHC 32.7 g/dL 31.0-36.0 [facility] ([facility] NORMAL [...] HCT IS 5% LESS SOURCE FOR DATA: [employer] 1800 OPERATION MANUAL( AUTOMATED BLOOD COUNTS [...] PLT 135 10E3/uL 140-440 Below low normal [facility] ([facility] NORMAL RANGES Age [...] HCT IS 5% LESS SOURCE FOR DATA: [employer] 1800 OPERATION MANUAL( AUTOMATED BLOOD COUNTS AND [...] 2-19 YEARS EXCLUSIVE. RDW-CV 12.9 % 11.5-14.5 [facility] ([facility] NORMAL RANGES Age WBC RBC [...] HCT IS 5% LESS SOURCE FOR DATA: [employer] 1800 OPERATION MANUAL( AUTOMATED BLOOD COUNTS AND [...] 2-19 YEARS EXCLUSIVE. Lym% 25.6 % 10.0-58.5 [facility] ([facility] NORMAL [...] HCT IS 5% LESS SOURCE FOR DATA: [employer] 1800 OPERATION MANUAL( AUTOMATED BLOOD COUNTS AND [...] HCT IS 5% LESS SOURCE FOR DATA: [employer] 1800 OPERATION MANUAL( AUTOMATED BLOOD COUNTS AND [...] HCT IS 5% LESS SOURCE FOR DATA: [employer] 1800 OPERATION MANUAL( AUTOMATED BLOOD COUNTS AND [...] 2-19 YEARS EXCLUSIVE. Lym# 1.2 10E3/uL 0.6-4.1 [facility] ([facility] NORMAL RANGES Age [...] HCT IS 5% LESS SOURCE FOR DATA: [employer] 1800 OPERATION MANUAL( AUTOMATED BLOOD COUNTS AND [...] 2-19 YEARS EXCLUSIVE. MXD# 0.4 10E3/uL 0.0-1.8 [facility] ([facility] NORMAL RANGES Age [...] HCT IS 5% LESS SOURCE FOR DATA: [employer] 1800 OPERATION MANUAL( AUTOMATED BLOOD COUNTS AND [...] 2-19 YEARS EXCLUSIVE. Neut# 3.1 % 2.0-7.8 [facility] ([facility] NORMAL RANGES Age WBC RBC [...] HCT IS 5% LESS SOURCE FOR DATA: [employer] 1800 OPERATION MANUAL( AUTOMATED BLOOD COUNTS AND [...] 2-19 YEARS EXCLUSIVE. MPV 10.8 fL 9.0-13.0 [facility] ([facility] NORMAL RANGES [...] HCT IS 5% LESS SOURCE FOR DATA: [employer] 1800 OPERATION MANUAL( AUTOMATED BLOOD COUNTS AND [...] 2-19 YEARS EXCLUSIVE. ID Date Data Source [id number] 01/18/2020 11:24:00 AM EST [facility] ([facility] [...] HCT IS 5% LESS SOURCE FOR DATA: [employer] 1800 OPERATION MANUAL( AUTOMATED BLOOD COUNTS AND [...] 2-19 YEARS EXCLUSIVE. Trig 52 mg/dL 35-200 [facility] ([facility] NORMAL [...] HCT IS 5% LESS SOURCE FOR DATA: [employer] 1800 OPERATION MANUAL( AUTOMATED BLOOD COUNTS [...] HCT IS 5% LESS SOURCE FOR DATA: [employer] 1800 OPERATION MANUAL( AUTOMATED BLOOD COUNTS AND [...] Cho/HDL Ratio 2.2 CALC [facility] ([facility] NORMAL RANGES Age WBC RBC [...] HCT IS 5% LESS SOURCE FOR DATA: [employer] 1800 OPERATION MANUAL( AUTOMATED BLOOD COUNTS [...] HCT IS 5% LESS SOURCE FOR DATA: [employer] 1800 OPERATION MANUAL( AUTOMATED BLOOD COUNTS AND [...] 2-19 YEARS EXCLUSIVE. ID Date Data Source [id number] 01/18/2020 11:24:00 AM EST [facility] ([facility] [...] HCT IS 5% LESS SOURCE FOR DATA: [employer] 1800 OPERATION MANUAL( AUTOMATED BLOOD COUNTS AND [...] YEARS EXCLUSIVE. Creat 1.0 mg/dL 0.7-1.2 [facility] ([facility] NORMAL RANGES Age WBC RBC [...] HCT IS 5% LESS SOURCE FOR DATA: [employer] 1800 OPERATION MANUAL( AUTOMATED BLOOD COUNTS AND [...] 2-19 YEARS EXCLUSIVE. BUN 22 mg/dL 8- [facility] ([facility] NORMAL RANGES [...] HCT IS 5% LESS SOURCE FOR DATA: [employer] 1800 OPERATION MANUAL( AUTOMATED BLOOD COUNTS AND [...] 2-19 YEARS EXCLUSIVE. BUN/Creatinine Ratio 22.1 CALC [facility] ([facility] NORMAL RANGES Age WBC [...] HCT IS 5% LESS SOURCE FOR DATA: [employer] 1800 OPERATION MANUAL( AUTOMATED BLOOD COUNTS AND [...] 2-19 YEARS EXCLUSIVE. Na 136 mmol/L 136-145 [facility] ([facility] NORMAL RANGES Age WBC RBC [...] HCT IS 5% LESS SOURCE FOR DATA: [employer] 1800 OPERATION MANUAL( AUTOMATED BLOOD COUNTS AND [...] 2-19 YEARS EXCLUSIVE. K 4.1 mmol/L 3.5-5.1 [facility] ([facility] NORMAL RANGES [...] HCT IS 5% LESS SOURCE FOR DATA: [employer] 1800 OPERATION MANUAL( AUTOMATED BLOOD COUNTS AND [...] HCT IS 5% LESS SOURCE FOR DATA: [employer] 1800 OPERATION MANUAL( AUTOMATED BLOOD COUNTS AND [...] 2-19 YEARS EXCLUSIVE. Co2 24.4 mmol/L 22.0-29.0 [facility] ([facility] NORMAL RANGES Age [...] HCT IS 5% LESS SOURCE FOR DATA: [employer] 1800 OPERATION MANUAL( AUTOMATED BLOOD COUNTS AND [...] 2-19 YEARS EXCLUSIVE. CA 8.7 mg/dL 8.6-10.2 [facility] ([facility] NORMAL [...] HCT IS 5% LESS SOURCE FOR DATA: [employer] 1800 OPERATION MANUAL( AUTOMATED BLOOD COUNTS AND [...] HCT IS 5% LESS SOURCE FOR DATA: [employer] 1800 OPERATION MANUAL( AUTOMATED BLOOD COUNTS AND [...] 2-19 YEARS EXCLUSIVE. Alb 4.0 g/dL 3.5-5.2 [facility] ([facility] NORMAL [...] HCT IS 5% LESS SOURCE FOR DATA: [employer] 1800 OPERATION MANUAL( AUTOMATED BLOOD COUNTS [...] HCT IS 5% LESS SOURCE FOR DATA: [employer] 1800 OPERATION MANUAL( AUTOMATED BLOOD COUNTS AND [...] HCT IS 5% LESS SOURCE FOR DATA: [employer] 1800 OPERATION MANUAL( AUTOMATED BLOOD COUNTS AND [...] YEARS EXCLUSIVE. Alt (SGPT) 14 U/L 0-41 [facility] NORMAL RANGES Age WBC RBC [...] HCT IS 5% LESS SOURCE FOR DATA: [employer] 1800 OPERATION MANUAL( AUTOMATED BLOOD COUNTS AND [...] HCT IS 5% LESS SOURCE FOR DATA: [employer] 1800 OPERATION MANUAL( AUTOMATED BLOOD COUNTS AND [...] 2-19 YEARS EXCLUSIVE. Tbili 0.94 mg/dL 0.0-1.2 [facility] ([facility] NORMAL RANGES Age WBC RBC [...] HCT IS 5% LESS SOURCE FOR DATA: [employer] 1800 OPERATION MANUAL( AUTOMATED BLOOD COUNTS AND [...] YEARS EXCLUSIVE. Ast (Sgot) 24 U/L 0-40 [facility] ([facility] NORMAL RANGES Age WBC RBC [...] HCT IS 5% LESS SOURCE FOR DATA: [employer] 1800 OPERATION MANUAL( AUTOMATED BLOOD COUNTS [...] HCT IS 5% LESS SOURCE FOR DATA: [employer] 1800 OPERATION MANUAL( AUTOMATED BLOOD COUNTS AND [...] YEARS EXCLUSIVE. eGFR 79 # [facility] ( [facility] NORMAL RANGES Age WBC [...] HCT IS 5% LESS SOURCE FOR DATA: [employer] 1800 OPERATION MANUAL( AUTOMATED BLOOD COUNTS [...] 2-19 YEARS EXCLUSIVE. Anion Gap 13 mmol/L [facility] NORMAL [...] HCT IS 5% LESS SOURCE FOR DATA: [employer] 1800 OPERATION MANUAL( AUTOMATED BLOOD COUNTS [...] INDIVIDUALA AGED 2-19 YEARS EXCLUSIVE. eGFR Non-Afr. Italian 68 # [facility] ([facility] [...] HCT IS 5% LESS SOURCE FOR DATA: [employer] 1800 OPERATION MANUAL( AUTOMATED BLOOD COUNTS AND [...] 2-19 YEARS EXCLUSIVE. ID Date Data Source [id number] 06/08/2019 09:08:00 AM URIEL FRENCH ([facility] Name Value Range Interpretation Code Description Data Michelle rce(s) Supporting Document(s) Chol 109 mg/dL 0-200 [facility] ([facility] CLASSIFICATION CHOLESTEROL FO [...] mL/min Normal Trig 71 mg/dL 35-200 [facility] ([facility] CLASSIFICATION CHOLESTEROL FO [...] Cho/HDL Ratio 2.6 CALC [facility] ([facility] CLASSIFICATION CHOLESTEROL FO R [...] >32 mL/min Normal ID Date Data Source [id number] 06/08/2019 09:08:00 AM EDT GILLIAN ([facility] Name Value Range Interpretation Code Description Data Michelle rce(s) Supporting Document(s) Glu 96 mg/dL 70-110 [facility] ([facility] CLASSIFICATION CHOLESTEROL FO [...] mL/min Normal BUN/Creatinine Ratio 27.5 CALC [facility] ([facility] CLASSIFICATION CHOLESTEROL FO R [...] mL/min Normal K 4.1 mmol/L 3.5-5.1 [facility] ([facility] CLASSIFICATION CHOLESTEROL FO [...] mL/min Normal Co2 23.8 mmol/L 22.0-29.0 [facility] ([facility] CLASSIFICATION CHOLESTEROL FO [...] mL/min Normal CL 103.8 mmol/L 98.0-107.0 [facility] CLASSIFICATION CHOLESTEROL FO R [...] mL/min Normal Alb 4.2 g/dL 3.5-5.2 [facility] ([facility] CLASSIFICATION CHOLESTEROL FO [...] Normal CA 9.1 mg/dL 8.6-10.2 [facility] ([facility] CLASSIFICATION CHOLESTEROL FO R [...] >32 mL/min Normal Tbili 0.67 mg/dL 0.0-1.2 [facility] ([facility] CLASSIFICATION CHOLESTEROL [...] Alt (SGPT) 12 U/L 0-41 [facility] ([facility] CLASSIFICATION CHOLESTEROL FO R [...] mL/min Normal Anion Gap 17 mmol/L [facility] CLASSIFICATION CHOLESTEROL FO [...] and above >32 mL/min Normal eGFR Non-Afr. Italian 54 # [facility] ([facility] CLASSIFICATION CHOLESTEROL FO R [...] >32 mL/min Normal ID Date Data Source [id number] 02/14/2019 01:35:00 PM EST GILLIAN ([facility] Name Value Range Interpretation Code Description Data Michelle rce(s) Supporting Document(s) Thyrotropin [Units/volume] in Serum or Plasma 2.394 ulU/mL 0.60-4.8 MEDENT ([facility] CLASSIFICATION CHOLESTEROL FO R [...] >32 mL/min Normal ID Date Data Source [id number] 02/14/2019 01:35:00 PM EST MEDENT ([facility] Name Value Range Interpretation Code Description Data Michelle rce(s) Supporting Document(s) RBC 4.04 10E6/uL 4.20-6.30 Below low normal MEDENT ([facility] CLASSIFICATION CHOLESTEROL FO R [...] Normal WBC 6.3 10E3/uL 4.1-10.9 MEDENT ([facility] CLASSIFICATION CHOLESTEROL FO R [...] mL/min Normal HGB 12.1 g/dL 12.0-18.0 [facility] CLASSIFICATION CHOLESTEROL FO [...] >32 mL/min Normal MCH 30.0 pg 26.0-32.0 [facility] ([facility] CLASSIFICATION CHOLESTEROL FO [...] Normal PLT 151 10E3/uL 140-440 MEDENT ([facility] CLASSIFICATION CHOLESTEROL FO R [...] mL/min Normal Neut% 71.5 % 37.0-92.0 [facility] CLASSIFICATION CHOLESTEROL FO [...] >32 mL/min Normal Neut# 4.6 % 2.0-7.8 [facility] CLASSIFICATION CHOLESTEROL [...] mL/min Normal Lym# 1.2 10E3/uL 0.6-4.1 MEDENT ([facility] CLASSIFICATION CHOLESTEROL FO [...] mL/min Normal MPV 10.7 fL 9.0-13.0 MEDENT ([facility] CLASSIFICATION CHOLESTEROL FO [...] mL/min Normal MXD# 0.5 10E3/uL 0.0-1.8 MEDENT ([facility] CLASSIFICATION CHOLESTEROL FO [...] >32 mL/min Normal ID Date Data Source [id number] 02/14/2019 01:35:00 PM EST MEDENT ([facility] Name Value Range Interpretation Code Description Data Michelle rce(s) Supporting Document(s) Glu 127 mg/dL 70-110 Above high normal MEDENT ([facility] CLASSIFICATION CHOLESTEROL FO R [...] >32 mL/min Normal BUN/Creatinine Ratio 23.7 Calc [facility] ([facility] CLASSIFICATION CHOLESTEROL FO R [...] 29 mg/dL 8-23 Above high normal [facility]ENT ([facility] CLASSIFICATION CHOLESTEROL FO R [...] mL/min Normal CL 102.5 mmol/L 98.0-107.0 MEDENT ([facility] CLASSIFICATION CHOLESTEROL FO R ADULTS [...] mL/min Normal eGFR 64 # MEDENT ( [facility] CKD-EPI Anion Gap 16 mmol/L MEDALEX ([facility] CLASSIFICATION CHOLESTEROL FO [...] and above >32 mL/min Normal eGFR Non-Afr. Italian 55 # GILLIAN ([facility] CKD-EPI Procedure Social History Code Duration Value Status Description Data Source(s ) Smoking 10/21/2019 03:12:00 PM EDT Never smoked tobacco (findi ng) completed Never smoked tobacco (finding) CRARY (Jaleel Chino MD [facility]) Vital Signs ID Date Data Source UNK Name Value Range Interpretation Code Description Data Source(s) Nice body weight 166 [lb_av] 166 [lb_av] MEDEN T ([facility], ) Body mass index (BMI) [Ratio] 26.3 kg/m2 26.3 k g/m2 MEDENT ([facility], ) Body weight 183.00 [lb_av] 183.00 [lb_av] MEDEN T ([facility], ) Body height 70 [in_i] 70 [in_i] MEDALEX ([facility], ) 5'10" Respiratory rate 12 /min 12 /min MEDENT ( [facility], ) Oxygen saturation in Arterial blood by Pulse oximetry 98 % 98 % MEDENT ([facility] Body mass index (BMI) [Ratio] 28.7 kg/m2 28.7 k g/m2 MEDENT ([facility] Nice body weight 148 [lb_av] 148 [lb_av] MEDEN T ([facility] Body weight 183.00 [lb_av] 183.00 [lb_av] MEDEN T ([facility] Body height 67 [in_i] 67 [in_i] MEDENT ([facility] 5'7" Respiratory rate [...] k g/m2 MEDENT ([facility] Nice body weight 148 [lb_av] 148 [lb_av] MEDEN T ([facility] Body weight 181.00 [lb_av] 181.00 [lb_av] MEDEN T ([facility] Body height 67 [in_i] 67 [in_i] MEDENT ([facility] 5'7" Respiratory rate [...] mm[Hg] M EDENT ([facility] Nice body weight 166 [lb_av] 166 [lb_av] MEDEN T ([facility], ) Body mass index (BMI) [Ratio] 26.3 kg/m2 26.3 k g/m2 MEDENT ([facility], ) Body weight 183.00 [lb_av] 183.00 [lb_av] MEDEN T ([facility], ) Body height 70 [in_i] 70 [in_i] MEDENT ([facility], ) 5'10" Respiratory rate 12 /min 12 /min MEDENT ( [facility]) Oxygen saturation in Arterial blood by Pulse oximetry 97 % 97 % [facility] ([facility]) Body mass index (BMI) [Ratio] 28.7 kg/m2 28.7 k g/m2 MEDENT ([facility]) Body weight 183.00 [lb_av] 183.00 [lb_av] MEDEN T ([facility]) Body height 67 [in_i] 67 [in_i] MEDENT ([facility], ) Respiratory rate 14 /min 14 /min [facility], [facility] Body temperature 99.1 [degF] 99.1 [degF] [facility] Heart rate 74 /min 74 /min [facility] ([facility], ) Diastolic blood pressure 74 mm[Hg] 74 mm[Hg] MEDENT ([facility], ) Systolic blood pressure 138 mm[Hg] 138 mm[Hg] [facility], [facility] Oxygen saturation in Arterial blood by Pulse oximetry 97 % 97 % MEDENT ([facility] Body mass index (BMI) [Ratio] 28.7 kg/m2 28.7 k g/m2 MEDENT ([facility] Nice body weight 148 [lb_av] 148 [lb_av] MEDEN T ([facility] Body weight 183.00 [lb_av] 183.00 [lb_av] MEDEN T ([facility] Body height 67 [in_i] 67 [in_i] MEDENT ([facility] 5'7" Respiratory rate 14 /min 14 /min MEDENT ( [facility] Heart rate 74 /min 74 /min MEDENT ([facility] Body temperature 99.1 [degF] 99.1 [degF] MEDENT ([facility] Diastolic blood pressure 74 mm[Hg] 74 mm[Hg] MEDENT ([facility] Systolic blood pressure 138 mm[Hg] 138 mm[Hg] M EDENT ([facility] Body mass index (BMI) [...] Pulse oximetry 97 % 97 % MEDENT ([facility] Body mass index (BMI) [Ratio] 28.8 kg/m2 28.8 k g/m2 MEDENT ([facility] Nice body weight 148 [lb_av] 148 [lb_av] MEDEN T ([facility] Body weight 184.00 [lb_av] 184.00 [lb_av] MEDEN T ([facility] Body height 67 [in_i] 67 [in_i] MEDENT ([facility] 5'7" Respiratory rate 12 /min 12 /min MEDENT ( [facility] Heart rate 74 /min 74 /min MEDENT ([facility] Body temperature 97.9 [degF] 97.9 [degF] MEDENT ([facility] Diastolic blood pressure 70 mm[Hg] 70 mm[Hg] MEDENT ([facility] Systolic blood pressure 124 mm[Hg] 124 mm[Hg] M EDENT ([facility] Body weight 86.184 kg 86.184 kg [facility] ([facility]) Body mass index (BMI) [Ratio] 28.1 kg/m2 28.1 k g/m2 [facility] ([facility]) Body weight 190.00 [lb_av] 190.00 [lb_av] MEDEN T ([facility]) Body height 69 [in_i] 69 [in_i] MEDENT ([facility]) 5'9" Body weight 86.184 kg 86.184 kg [facility] ([facility]) Body mass index (BMI) [Ratio] 28.1 kg/m2 28.1 k g/m2 [facility] ([facility]) Body weight 190.00 [lb_av] 190.00 [lb_av] MEDEN T ([facility]) Body height 69 [in_i] 69 [in_i] [facility] ([facility]) 5'9" Oxygen saturation in Arterial blood by Pulse oximetry 97 % 97 % [facility] Body mass index (BMI) [Ratio] 29.2 kg/m2 29.2 k g/m2 MEDENT ([facility] Body weight 186.25 [lb_av] 186.25 [lb_av] MEDEN T ([facility] Body height 67 [in_i] 67 [in_i] MEDENT ([facility] 5'7" Respiratory rate 16 /min 16 /min MEDENT ( [facility] Heart rate 90 /min 90 /min MEDENT ([facility] Body temperature 98.1 [degF] 98.1 [degF] MEDENT ([facility] Diastolic blood pressure 64 mm[Hg] 64 mm[Hg] MEDENT ([facility] Systolic blood pressure 124 mm[Hg] 124 mm[Hg] M LIVIER ([facility] Oxygen saturation in Arterial blood by Pulse oximetry 96 % 96 % MEDENT ([facility] Body mass index (BMI) [Ratio] 30.1 kg/m2 30.1 k g/m2 MEDENT ([facility] Body weight 192.00 [lb_av] 192.00 [lb_av] MEDEN T ([facility] Body height 67 [in_i] 67 [in_i] MEDENT ([facility] 5'7" Respiratory rate 14 /min 14 /min MEDENT ( [facility] Heart rate 90 /min 90 /min MEDENT ([facility] Body temperature 98.0 [degF] 98.0 [degF] MEDENT ([facility] Diastolic blood pressure 78 mm[Hg] 78 mm[Hg] MEDENT ([facility] Systolic blood pressure 160 mm[Hg] 160 mm[Hg] M EDALEX ([facility]
--- NOTE | 2020-04-02 12:08 | REP ---
INDICATION: dizziness. COMPARISON: None. TECHNIQUE: Helical scanning is acquired. 5 mm axial images were reformatted. Coronal MPR images were generated. FINDINGS: Bone window settings demonstrate an intact bony calvarium. There is no evidence of skull fracture or incidental bony calvarial lesion. The visualized paranasal sinuses appear clear. No intraorbital abnormality is seen. On soft tissue window setting images; the lateral, third, and fourth ventricles are normal in size and position. Simpson-white differentiation pattern is normal above and below the tentorium. There are is no evidence of intracranial hemorrhage. No mass, edema, infarction, or midline shift is seen. No extra-axial fluid collection is appreciated. Vascular calcification is observed at the skull base. There is generalized volume loss. Mild small vessel changes are noted in the periventricular white matter. IMPRESSION: Generalized volume loss, small vessel changes and vascular calcification. No acute intracranial abnormality.. <Electronically signed by Kodi Lee > 04/02/20 [id number]
[2020-04-02] MEDS ORDERED: MECLIZINE 25 MG TABLET PO ONE (12:30)
--- NOTE | 2020-04-02 12:30 | REP ---
INDICATION: dizziness. COMPARISON: Comparison chest x-ray 18 September 2016. TECHNIQUE: Two views.. FINDINGS: The lungs are well inflated and clear. The pleural angles are sharp. Monitoring electrodes are seen. Heart is mildly enlarged unchanged. Cardiothoracic ratio is 48.9%. The thoracic aorta is somewhat tortuous. IMPRESSION: Mildly prominent heart. Otherwise no acute disease.. <Electronically signed by Kodi Lee > 04/02/20 [id number]
[2020-04-02 12:41] LABS: EOS % 0.1 % (0.0-3.0); HEMATOCRIT 35.7 % (42.0-52.0); HEMOGLOBIN 11.6 g/dl (13.5-17.5); LYMPH # 0.5 10^3/uL (1.5-5.0); LYMPH % 6.7 % (24.0-44.0); MEAN CORPUSCULAR HEMOGLOBIN 29.5 pg (27.0-33.0); MEAN CORPUSCULAR HGB CONC 32.5 g/dl (32.0-36.5); MEAN CORPUSCULAR VOLUME 90.8 fl (80.0-96.0); MONO # 0.2 10^3/uL (0.0-0.8); MONO % 2.2 % (0.0-8.0); NEUTROPHILS # 6.1 10^3/uL (1.5-8.5); NEUTROPHILS % 90.4 % (36.0-66.0); PLATELET COUNT, AUTOMATED 137 10^3/uL (150-450); RED BLOOD COUNT 3.93 10^6/uL (4.30-6.10); WHITE BLOOD COUNT 6.7 10^3/uL (4.0-10.0)
[2020-04-02 13:04] LABS: ALBUMIN 3.9 GM/DL (3.2-5.2); ALT/SGPT 22 U/L (12-78); BILIRUBIN,DIRECT 0.3 MG/DL (0.0-0.2); BILIRUBIN,TOTAL 1.1 MG/DL (0.2-1.0); BLOOD UREA NITROGEN 29 MG/DL (7-18); CARBON DIOXIDE LEVEL 29 MEQ/L (21-32); CHLORIDE LEVEL 104 MEQ/L (98-107); CK-MB VALUE MASS 1.5 NG/ML (<3.6); CPK CREATINE PHOSPHOKINASE 68 U/L (39-308); CREATININE FOR GFR 1.15 MG/DL (0.70-1.30); FREE T4 0.91 NG/DL (0.76-1.46); GLOMERULAR FILTRATION RATE > 60.0 (>35); GLUCOSE, FASTING 125 MG/DL (70-100); MB/CK RELATIVE INDEX 2.21 (< OR =4); POTASSIUM SERUM 3.7 MEQ/L (3.5-5.1); SODIUM LEVEL 141 MEQ/L (136-145); TOTAL PROTEIN 6.8 GM/DL (6.4-8.2); TROPONIN I < 0.02 NG/ML (< 0.10)
[2020-04-02 13:05] LABS: INR 0.95; PROTHROMBIN TIME 12.9 SECONDS (12.5-14.3)
[2020-04-02 13:06] LABS: PARTIAL THROMBOPLASTIN TIME 29.4 SECONDS (24.2-38.5)
[2020-04-02] MEDS ORDERED: MECL1TAB31 PO (14:31)
[2020-04-02] MEDS ORDERED: FLON1SPR NARES (14:31)
[2020-04-02 15:00] VITALS: BP 177/88
--- NOTE | 2020-04-03 07:31 | ECGEPIP ---
[facility] - ED Test Date: 2020-04-02 Pat Name: STEPHAN SHAW Department: Room: - Gender: Male [employer]: : 1935 Requested By: MICHAEL Patel Order Number: [id number] Reading MD: Mario Alberto Killian Measurements Intervals [place] Rate: 80 P: IN: QRS: 40 QRSD: 96 T: 44 QT: 364 QTc: 419 Interpretive Statements SINUS RHYTHM WITH FREQUENT PREMATURE SUPRAVENTRICULAR COMPLEXES SIMILAR TO 09/19/16 Electronically Signed on 04-03-2020 7:31:42 EST by Mario Alberto Killian
== END 2020-04-02 15:03 | disposition home or self-care (01) ==
LOC: M ED 11:07
DX: H81.399 Other peripheral vertigo, unspecified ear (principal); H65.03 Acute serous otitis media, bilateral; I10 Essential (primary) hypertension; K21.9 Gastro-esophageal reflux disease without esophagitis; G20 Parkinson's disease; I67.2 Cerebral atherosclerosis; Z79.82 Long term (current) use of aspirin; Z79.899 Other long term (current) drug therapy; Z88.0 Allergy status to penicillin

== ENCOUNTER → 2021-06-13 | Outpatient (CLI) | payer MEDICARE, OTHER ==
[~2021-06-13] MED LIST changes: +ASPI81TA26 PO; +CARB25TA9 PO; +CLAR10CA3 PO; +FLON1SPR NARES; +HYDR-3490 PO; +LIDOCAINE 1% MDV 20ML VIAL As Ordered ONE; +MECL1TAB31 PO; +PRESCAP PO
[2021-06-13 13:53] LABS: BASO % 0.5 % (0.0-1.0); EOS # 0.1 10^3/uL (0.0-0.5); EOS % 1.8 % (0.0-3.0); HEMATOCRIT 30.7 % (42.0-52.0); HEMOGLOBIN 10.5 g/dl (13.5-17.5); LYMPH % 22.6 % (24.0-44.0); MEAN CORPUSCULAR HEMOGLOBIN 31.5 pg (27.0-33.0); MEAN CORPUSCULAR HGB CONC 34.2 g/dl (32.0-36.5); MEAN CORPUSCULAR VOLUME 92.2 fl (80.0-96.0); MONO # 0.2 10^3/uL (0.0-0.8); MONO % 5.5 % (2.0-8.0); NEUTROPHILS % 69.4 % (36.0-66.0); PLATELET COUNT, AUTOMATED 110 10^3/uL (150-450); RED BLOOD COUNT 3.33 10^6/uL (4.30-6.10); WHITE BLOOD COUNT 4.4 10^3/uL (4.0-10.0)
[2021-06-13 14:50] VITALS: BP 155/71
== END ==
LOC: M IRPRO 12:23
PROVIDERS: ATTEND Internal Medicine Hematology & Oncology
DX: D61.818 Other pancytopenia (principal)

== ENCOUNTER 2022-05-12 13:22 | Emergency (ER) | payer MEDICARE, OTHER ==
[~2022-05-12] VITALS: Ht 177.8 cm; Wt 80.1 kg
[~2022-05-12 13:22] MED LIST changes: +AMLO1TAB25; +FURO20TA2 PO; -LIDOCAINE 1% MDV 20ML VIAL As Ordered ONE; +ROPI1TAB3
[2022-05-12 13:23] VITALS: BP 174/74
== END 2022-05-12 17:55 | disposition home or self-care (01) ==
LOC: M ED 13:22
DX: S00.03XA Contusion of scalp, initial encounter (principal); W10.9XXA Fall (on) (from) unspecified stairs and steps, initial encounter; Y92.099 Unspecified place in other non-institutional residence as the place of occurrence of the external cause; M47.892 Other spondylosis, cervical region; Z79.82 Long term (current) use of aspirin; Z79.899 Other long term (current) drug therapy; Z88.0 Allergy status to penicillin

== ENCOUNTER → 2022-10-06 | Outpatient (REF) | payer MEDICARE, OTHER ==
[~2022-10-06] MED LIST changes: -ROPI1TAB3; +ROPI1TAB73
[2022-10-06 10:18] LABS: HEMATOCRIT 27.6 % (42.0-52.0); HEMOGLOBIN 9.3 g/dl (13.5-17.5); LYMPH # 0.4 10^3/uL (1.5-5.0); LYMPH % 37.3 % (24.0-44.0); MEAN CORPUSCULAR HEMOGLOBIN 31.7 pg (27.0-33.0); MEAN CORPUSCULAR HGB CONC 33.7 g/dl (32.0-36.5); MEAN CORPUSCULAR VOLUME 94.2 fl (80.0-96.0); MONO % 3.4 % (2.0-8.0); NEUTROPHILS % 59.3 % (36.0-66.0); RED BLOOD COUNT 2.93 10^6/uL (4.30-6.10); WHITE BLOOD COUNT 1.2 10^3/uL (4.0-10.0)
[2022-10-06 10:22] LABS: NEUTROPHILS # 0.7 10^3/uL (1.5-8.5); PLATELET COUNT, AUTOMATED 76 10^3/uL (150-450)
[2022-10-06 10:56] LABS: ALBUMIN 3.6 G/DL (3.2-5.2); ALKALINE PHOSPHATASE 67 U/L (46-116); ALT/SGPT < 9 U/L (7.0-40); AST/SGOT 15 U/L (<34); BILIRUBIN,TOTAL 1.3 MG/DL (0.3-1.2); BLOOD UREA NITROGEN 19 MG/DL (9-23); CALCIUM LEVEL 8.8 MG/DL (8.3-10.6); CARBON DIOXIDE LEVEL 28 MMOL/L (20-31); CHLORIDE LEVEL 103 MMOL/L (98-107); CREATININE FOR GFR 1.02 MG/DL (0.70-1.30); GLOMERULAR FILTRATION RATE > 60.0 (>35); GLUCOSE, FASTING 112 MG/DL (74-106); POTASSIUM SERUM 3.7 MMOL/L (3.5-5.1); SODIUM LEVEL 137 MMOL/L (136-145); TOTAL PROTEIN 6.2 G/DL (5.7-8.2)
== END ==
LOC: M LAB REF 10:04
PROVIDERS: ATTEND Nurse Practitioner Family
DX: C92.00 Acute myeloblastic leukemia, not having achieved remission (principal); I11.0 Hypertensive heart disease with heart failure

== ENCOUNTER → 2022-10-21 | Outpatient (CLI) | payer MEDICARE, OTHER ==
[~2022-10-21] MED LIST changes: +MECL-209 PO; -MECL1TAB31 PO
[2022-10-21 12:45] LABS: BASO % 0.3 % (0.0-1.0); HEMATOCRIT 26.4 % (42.0-52.0); HEMOGLOBIN 8.9 g/dl (13.5-17.5); LYMPH # 1.1 10^3/uL (1.5-5.0); LYMPH % 34.3 % (24.0-44.0); MEAN CORPUSCULAR HEMOGLOBIN 32.7 pg (27.0-33.0); MEAN CORPUSCULAR HGB CONC 33.7 g/dl (32.0-36.5); MEAN CORPUSCULAR VOLUME 97.1 fl (80.0-96.0); MONO % 29.4 % (2.0-8.0); NEUTROPHILS # 1.2 10^3/uL (1.5-8.5); NEUTROPHILS % 35.7 % (36.0-66.0); PLATELET COUNT, AUTOMATED 119 10^3/uL (150-450); RED BLOOD COUNT 2.72 10^6/uL (4.30-6.10); WHITE BLOOD COUNT 3.3 10^3/uL (4.0-10.0)
[2022-10-21 13:09] LABS: ALBUMIN 3.2 G/DL (3.2-5.2); ALKALINE PHOSPHATASE 64 U/L (46-116); ALT/SGPT < 9 U/L (7.0-40); AST/SGOT 13 U/L (<34); BILIRUBIN,TOTAL 0.5 MG/DL (0.3-1.2); BLOOD UREA NITROGEN 17 MG/DL (9-23); CALCIUM LEVEL 8.1 MG/DL (8.3-10.6); CARBON DIOXIDE LEVEL 29 MMOL/L (20-31); CHLORIDE LEVEL 104 MMOL/L (98-107); CREATININE FOR GFR 1.02 MG/DL (0.70-1.30); GLOMERULAR FILTRATION RATE > 60.0 (>35); GLUCOSE, FASTING 113 MG/DL (74-106); POTASSIUM SERUM 3.7 MMOL/L (3.5-5.1); SODIUM LEVEL 142 MMOL/L (136-145); TOTAL PROTEIN 5.7 G/DL (5.7-8.2)
== END ==
LOC: M LAB 12:21
PROVIDERS: ATTEND Nurse Practitioner Family
DX: C92.00 Acute myeloblastic leukemia, not having achieved remission (principal)

== ENCOUNTER 2023-01-08 20:22 | Inpatient (IN) | payer MEDICARE, OTHER ==
[2023-01-08 21:00] VITALS: BP 156/69
[2023-01-08] MEDS ORDERED: LASI20TA3 PO (21:28)
[2023-01-08] MEDS ORDERED: OMEP40CA4 PO (21:28)
[2023-01-08] MEDS ORDERED: LISI10TA22 PO (21:32)
[2023-01-08] MEDS ORDERED: METO1TAB32 PO (21:32)
[2023-01-08] MEDS ORDERED: BISACODYL 10MG SUPP PR PRN (21:40)
[2023-01-08] MEDS ORDERED: FLEET ENEMA PR PRN (21:40)
[2023-01-08] MEDS ORDERED: ACETAMINOPHEN 650MG SUPP PR PRN (21:40)
[2023-01-08] MEDS ORDERED: ONDANSETRON 4MG 2ML VIAL IV PRN (21:40)
[2023-01-08] MEDS ORDERED: MORPHINE 10MG/0.5ML ORAL CONCENTRATE SOLUTION U/D SL PRN (21:40)
[2023-01-08] MEDS ORDERED: SCOPOLAMINE 1MG TRANSDERMAL PATCH TOP PRN (21:40)
[2023-01-08 22:52] VITALS: O2SAT 100
[2023-01-09] MEDS: rOPINIRole 2MG TAB PO SCH (15:06)
[2023-01-09] MEDS ORDERED: rOPINIRole 1MG TAB PO SCH (21:00)
[2023-01-10] MEDS: LORazepam 1 MG TAB PO PRN (00:19)
[2023-01-10] MEDS: rOPINIRole 2MG TAB PO SCH ×3 (10:33→16:35)
[2023-01-10] MEDS: FUROSEMIDE 20 MG TAB PO SCH (10:33)
[2023-01-10] MEDS: OMEPRAZOLE 20MG CAP PO SCH ×2 (10:33→20:58)
[2023-01-10] MEDS: METOPROLOL SUCC *XL* 25MG TAB (TopROL *XL*) PO SCH (10:35)
[2023-01-11] MEDS: rOPINIRole 2MG TAB PO SCH ×3 (06:44→16:54)
[2023-01-11] MEDS: OMEPRAZOLE 20MG CAP PO SCH ×2 (08:36→20:03)
[2023-01-11] MEDS: METOPROLOL SUCC *XL* 25MG TAB (TopROL *XL*) PO SCH (08:40)
[2023-01-11] MEDS: FUROSEMIDE 20 MG TAB PO SCH (08:41)
[2023-01-11] MEDS: LORazepam 1 MG TAB PO PRN (22:37)
[2023-01-12] MEDS: rOPINIRole 2MG TAB PO SCH ×3 (06:44→17:19)
[2023-01-12] MEDS ORDERED: HOME MED LIST COMPLETE! XX SCH (07:25)
[2023-01-12] MEDS: FUROSEMIDE 20 MG TAB PO SCH (10:25)
[2023-01-12] MEDS: METOPROLOL SUCC *XL* 25MG TAB (TopROL *XL*) PO SCH (10:26)
[2023-01-12] MEDS: OMEPRAZOLE 20MG CAP PO SCH ×2 (10:26→21:36)
[2023-01-13] MEDS: rOPINIRole 2MG TAB PO SCH ×3 (06:44→16:40)
[2023-01-13] MEDS: OMEPRAZOLE 20MG CAP PO SCH ×2 (08:31→20:27)
[2023-01-13] MEDS: METOPROLOL SUCC *XL* 25MG TAB (TopROL *XL*) PO SCH (08:31)
[2023-01-13] MEDS: FUROSEMIDE 20 MG TAB PO SCH (08:31)
[2023-01-14] MEDS: rOPINIRole 2MG TAB PO SCH ×3 (05:57→17:27)
[2023-01-14] MEDS: FUROSEMIDE 20 MG TAB PO SCH (09:42)
[2023-01-14] MEDS: OMEPRAZOLE 20MG CAP PO SCH ×2 (09:42→20:08)
[2023-01-14] MEDS: METOPROLOL SUCC *XL* 25MG TAB (TopROL *XL*) PO SCH (09:43)
[2023-01-14] MEDS ORDERED: SODIUM CHLORIDE NASAL 0.65% SPRAY BTL (OCEAN) PRN (13:50)
[2023-01-15] MEDS: rOPINIRole 2MG TAB PO SCH ×3 (06:46→18:10)
[2023-01-15] MEDS: OMEPRAZOLE 20MG CAP PO SCH ×2 (09:24→20:46)
[2023-01-15] MEDS: METOPROLOL SUCC *XL* 25MG TAB (TopROL *XL*) PO SCH (09:24)
[2023-01-15] MEDS: FUROSEMIDE 20 MG TAB PO SCH (09:25)
[2023-01-16] MEDS: rOPINIRole 2MG TAB PO SCH ×3 (06:24→17:21)
[2023-01-16] MEDS: OMEPRAZOLE 20MG CAP PO SCH ×2 (08:03→19:39)
[2023-01-16] MEDS: FUROSEMIDE 20 MG TAB PO SCH (08:03)
[2023-01-16] MEDS: METOPROLOL SUCC *XL* 25MG TAB (TopROL *XL*) PO SCH (08:04)
[2023-01-17] MEDS: rOPINIRole 2MG TAB PO SCH ×3 (06:04→17:05)
[2023-01-17] MEDS: FUROSEMIDE 20 MG TAB PO SCH (09:38)
[2023-01-17] MEDS: METOPROLOL SUCC *XL* 25MG TAB (TopROL *XL*) PO SCH (09:38)
[2023-01-17] MEDS: OMEPRAZOLE 20MG CAP PO SCH ×2 (09:39→19:45)
[2023-01-18] MEDS: rOPINIRole 2MG TAB PO SCH ×3 (06:17→16:11)
[2023-01-18] MEDS: FUROSEMIDE 20 MG TAB PO SCH (08:01)
[2023-01-18] MEDS: OMEPRAZOLE 20MG CAP PO SCH ×2 (08:01→19:37)
[2023-01-18] MEDS: METOPROLOL SUCC *XL* 25MG TAB (TopROL *XL*) PO SCH (08:02)
[2023-01-18] MEDS: LORazepam 1 MG TAB PO PRN (21:13)
[2023-01-19] MEDS: rOPINIRole 2MG TAB PO SCH ×3 (06:08→17:13)
[2023-01-19] MEDS: OMEPRAZOLE 20MG CAP PO SCH ×2 (10:38→20:06)
[2023-01-19] MEDS: METOPROLOL SUCC *XL* 25MG TAB (TopROL *XL*) PO SCH (10:39)
[2023-01-19] MEDS: FUROSEMIDE 20 MG TAB PO SCH (10:39)
[2023-01-19] MEDS: LORazepam 1 MG TAB PO PRN (20:06)
[2023-01-20] MEDS: rOPINIRole 2MG TAB PO SCH ×3 (06:19→17:09)
[2023-01-20] MEDS: OMEPRAZOLE 20MG CAP PO SCH ×2 (08:36→21:53)
[2023-01-20] MEDS: METOPROLOL SUCC *XL* 25MG TAB (TopROL *XL*) PO SCH (08:36)
[2023-01-20] MEDS: FUROSEMIDE 20 MG TAB PO SCH (08:36)
[2023-01-20] MEDS: LORazepam 1 MG TAB PO PRN (23:14)
[2023-01-21] MEDS: rOPINIRole 2MG TAB PO SCH ×3 (05:56→18:03)
[2023-01-21] MEDS: OMEPRAZOLE 20MG CAP PO SCH ×2 (08:14→20:30)
[2023-01-21] MEDS: METOPROLOL SUCC *XL* 25MG TAB (TopROL *XL*) PO SCH (08:15)
[2023-01-21] MEDS: FUROSEMIDE 20 MG TAB PO SCH (08:15)
[2023-01-21] MEDS: LORazepam 1 MG TAB PO PRN (23:30)
[2023-01-22] MEDS: rOPINIRole 2MG TAB PO SCH ×3 (06:11→17:37)
[2023-01-22] MEDS: FUROSEMIDE 20 MG TAB PO SCH (08:09)
[2023-01-22] MEDS: OMEPRAZOLE 20MG CAP PO SCH ×2 (08:09→20:28)
[2023-01-22] MEDS: METOPROLOL SUCC *XL* 25MG TAB (TopROL *XL*) PO SCH (08:09)
[2023-01-22] MEDS: LORazepam 1 MG TAB PO PRN (20:28)
[2023-01-23] MEDS: rOPINIRole 2MG TAB PO SCH ×3 (06:00→17:54)
[2023-01-23] MEDS: FUROSEMIDE 20 MG TAB PO SCH (10:56)
[2023-01-23] MEDS: METOPROLOL SUCC *XL* 25MG TAB (TopROL *XL*) PO SCH (10:56)
[2023-01-23] MEDS: OMEPRAZOLE 20MG CAP PO SCH ×2 (10:57→20:10)
[2023-01-24] MEDS: rOPINIRole 2MG TAB PO SCH ×3 (06:44→16:38)
[2023-01-24] MEDS: FUROSEMIDE 20 MG TAB PO SCH (08:01)
[2023-01-24] MEDS: METOPROLOL SUCC *XL* 25MG TAB (TopROL *XL*) PO SCH (08:01)
[2023-01-24] MEDS: OMEPRAZOLE 20MG CAP PO SCH ×2 (08:01→22:09)
[2023-01-24] MEDS: MIRALAX *UNIT DOSE* 17GM PACKET PO PRN (11:13)
[2023-01-24] MEDS: LORazepam 1 MG TAB PO PRN (22:09)
[2023-01-25] MEDS: rOPINIRole 2MG TAB PO SCH ×3 (06:06→16:20)
[2023-01-25] MEDS: MIRALAX *UNIT DOSE* 17GM PACKET PO PRN (06:54)
[2023-01-25] MEDS: FUROSEMIDE 20 MG TAB PO SCH (09:09)
[2023-01-25] MEDS: OMEPRAZOLE 20MG CAP PO SCH ×2 (09:09→21:20)
[2023-01-25] MEDS: METOPROLOL SUCC *XL* 25MG TAB (TopROL *XL*) PO SCH (09:13)
[2023-01-26] MEDS: rOPINIRole 2MG TAB PO SCH ×3 (06:02→17:19)
[2023-01-26] MEDS: METOPROLOL SUCC *XL* 25MG TAB (TopROL *XL*) PO SCH (09:56)
[2023-01-26] MEDS: OMEPRAZOLE 20MG CAP PO SCH ×2 (09:56→20:09)
[2023-01-26] MEDS: FUROSEMIDE 20 MG TAB PO SCH (09:56)
[2023-01-26] MEDS: LORazepam 1 MG TAB PO PRN (18:53)
[2023-01-27] MEDS: rOPINIRole 2MG TAB PO SCH ×3 (05:35→17:32)
[2023-01-27] MEDS: METOPROLOL SUCC *XL* 25MG TAB (TopROL *XL*) PO SCH (09:27)
[2023-01-27] MEDS: FUROSEMIDE 20 MG TAB PO SCH (09:27)
[2023-01-27] MEDS: LORazepam 1 MG TAB PO PRN ×2 (09:28→19:41)
[2023-01-27] MEDS: OMEPRAZOLE 20MG CAP PO SCH ×2 (09:28→19:41)
[2023-01-28] MEDS: rOPINIRole 2MG TAB PO SCH ×3 (06:11→16:54)
[2023-01-28] MEDS: OMEPRAZOLE 20MG CAP PO SCH ×2 (08:15→21:00)
[2023-01-28] MEDS: METOPROLOL SUCC *XL* 25MG TAB (TopROL *XL*) PO SCH (08:19)
[2023-01-28] MEDS: FUROSEMIDE 20 MG TAB PO SCH (08:19)
[2023-01-28 12:22] VITALS: TEMP 98.4
[2023-01-28] MEDS: ACETAMINOPHEN TAB 650MG DOSE (2X325MG) PO PRN ×2 (12:31→17:56)
[2023-01-28] MEDS: LORazepam 1 MG TAB PO PRN ×2 (13:45→17:56)
[2023-01-29] MEDS: rOPINIRole 2MG TAB PO SCH ×3 (06:09→17:05)
[2023-01-29] MEDS: LORazepam 1 MG TAB PO PRN ×2 (06:09→12:08)
[2023-01-29] MEDS: ACETAMINOPHEN TAB 650MG DOSE (2X325MG) PO PRN (08:11)
[2023-01-29] MEDS: OMEPRAZOLE 20MG CAP PO SCH ×3 (08:11→22:21)
[2023-01-29] MEDS: METOPROLOL SUCC *XL* 25MG TAB (TopROL *XL*) PO SCH (08:11)
[2023-01-29] MEDS: FUROSEMIDE 20 MG TAB PO SCH (08:12)
[2023-01-30] MEDS: rOPINIRole 2MG TAB PO SCH ×3 (08:21→17:29)
[2023-01-30] MEDS: OMEPRAZOLE 20MG CAP PO SCH ×2 (08:22→21:00)
[2023-01-30] MEDS: ACETAMINOPHEN TAB 650MG DOSE (2X325MG) PO PRN (08:22)
[2023-01-30] MEDS: FUROSEMIDE 20 MG TAB PO SCH (08:23)
[2023-01-30] MEDS: LORazepam 1 MG TAB PO PRN ×2 (08:23→17:59)
[2023-01-30] MEDS: METOPROLOL SUCC *XL* 25MG TAB (TopROL *XL*) PO SCH (08:23)
[2023-01-31] MEDS: rOPINIRole 2MG TAB PO SCH ×3 (06:01→16:37)
[2023-01-31] MEDS: FUROSEMIDE 20 MG TAB PO SCH (07:59)
[2023-01-31] MEDS: METOPROLOL SUCC *XL* 25MG TAB (TopROL *XL*) PO SCH (07:59)
[2023-01-31] MEDS: OMEPRAZOLE 20MG CAP PO SCH ×2 (08:00→20:41)
[2023-01-31] MEDS: ACETAMINOPHEN TAB 650MG DOSE (2X325MG) PO PRN (20:40)
[2023-01-31] MEDS: LORazepam 1 MG TAB PO PRN (20:41)
[2023-02-01] MEDS: rOPINIRole 2MG TAB PO SCH ×3 (06:49→17:18)
[2023-02-01] MEDS: METOPROLOL SUCC *XL* 25MG TAB (TopROL *XL*) PO SCH (08:01)
[2023-02-01] MEDS: OMEPRAZOLE 20MG CAP PO SCH ×2 (08:01→21:07)
[2023-02-01] MEDS: FUROSEMIDE 20 MG TAB PO SCH (08:01)
[2023-02-01] MEDS: LORazepam 1 MG TAB PO PRN ×2 (14:49→21:07)
[2023-02-02] MEDS: LORazepam 1 MG TAB PO PRN (01:10)
[2023-02-02] MEDS: ACETAMINOPHEN TAB 650MG DOSE (2X325MG) PO PRN (01:43)
[2023-02-02] MEDS: FUROSEMIDE 20 MG TAB PO SCH (09:14)
[2023-02-02] MEDS: OMEPRAZOLE 20MG CAP PO SCH (09:14)
[2023-02-02] MEDS: rOPINIRole 2MG TAB PO SCH ×2 (09:14→12:49)
[2023-02-02 09:18] VITALS: BP 143/65
[2023-02-02] MEDS: METOPROLOL SUCC *XL* 25MG TAB (TopROL *XL*) PO SCH (09:18)
[2023-02-02] MEDS ORDERED: HYOS125TA PO (10:30)
[2023-02-02] MEDS ORDERED: MORP1SOL5 PO (10:30)
[2023-02-02] MEDS ORDERED: ATIV1TAB10 PO (10:30)
== END 2023-02-02 12:56 | disposition hospice, inpatient (51) | DRG 951 ==
LOC: EDBD 20:22 → M ED 20:22 → M ED INP 21:38 → ENRESERV 22:14 → M MSPAV 23:18
PROVIDERS: ADMIT Family Medicine; ATTEND Internal Medicine
DX: Z51.5 Encounter for palliative care (principal); C92.00 Acute myeloblastic leukemia, not having achieved remission; F02.80 Dementia in other diseases classified elsewhere, unspecified severity, without behavioral disturbance, psychotic disturbance, mood disturbance, and anxiety; I10 Essential (primary) hypertension; G20.A1 Parkinson's disease without dyskinesia, without mention of fluctuations; K21.9 Gastro-esophageal reflux disease without esophagitis; K59.00 Constipation, unspecified; Z79.899 Other long term (current) drug therapy; Z88.0 Allergy status to penicillin